=== PATIENT | female | born 1995 | race American Indian/Alaskan Native ===

== ENCOUNTER 2017-02-02 14:52 | Inpatient (IN) | payer OTHER ==
[2017-02-02] MEDS ORDERED: LACTATED RINGERS 1,000 ML IV ONE (16:00)
[2017-02-02] MEDS ORDERED: ZOFRAN IV ONE (16:00)
[2017-02-02 16:43] LABS: Bilirubin,Urine NEG (Negative)
[2017-02-02 16:44] LABS: Blood,Urine NEG (Negative); Ketones,Urine 80 mg/dL (Negative); Leukocyte Esterase,Urine LG (Negative); Mucus,Urine 3+ /HPF; Nitrite,Urine NEG (Negative); Urobilinogen,Urine < 2.0 mg/dL (<2.0)
[2017-02-02] MEDS ORDERED: KEPPRA 1,000 MG in D5W 100 ML IV ONE (17:53)
--- NOTE | 2017-02-02 18:08 | History and Physical Report ---
History of Present Illness Date of examination: 02/02/17 Date of admission: 02/02/17 14:53 Chief complaint: Patient presents to [facility] with c/o or recent seizure activity. Pt had multiple seizures back to back. Pt states she has had seizures since childhood but recently wasn't taking meds because of how she felt. Recently seen at [facility] for this . Will Attempt to get records. Past History Past Medical History: seizure Past Surgical History: no surgical history Family/Genetic History: none Social history: other - Obstetrical History Expected Date of Delivery: 05/15/17 Actual Gestation: 25 Week(s) 3 Day(s) : 4 Number of Living Children: 3 Medications and Allergies Allergies Allergy/AdvReac Type Severity Reaction Status Date / Time [place] And Derivatives Allergy Unknown Verified 02/02/17 15:28 Home Medications Medication Instructions Recorded Confirmed Last Taken Type levETIRAcetam [Keppra TAB] 750 mg PO BID #60 tablet 06/06/16 02/02/17 Unknown Rx Pnv with Ca,No.72/Iron/FA [Pnv 1 each PO DAILY 02/02/17 02/02/17 Unknown History Plus Multivit Tab] Active Meds: Active Medications Levetiracetam 1,000 mg/ (Dextrose) 110 mls @ 400 mls/hr IV ONCE.ED ONE Stop: 02/02/17 18:09 Levetiracetam (Keppra 1,000 Mg/Ns 0.75% 100ml) 1,000 mg in 100 mls @ 363.636 mls/hr IV ONCE.ED ONE Stop: 02/02/17 19:01 Levetiracetam (Keppra) 500 mg PO BID NAKUR Review of Systems All systems: negative Gastrointestinal: nausea, vomiting - Vital Signs Vital signs: Vital Signs Pulse Pulse Ox 110 H 88 02/02/17 15:07 02/02/17 15:07 Temp Pulse Resp BP Pulse Ox 98.6 F 100 H 18 124/77 99 02/02/17 15:34 02/02/17 17:58 02/02/17 15:34 02/02/17 17:39 02/02/17 17:58 - Physical Exam Breasts: Positive: deferred Cardiovascular: Regular rate, Normal S1, Normal S2 Abdomen: Positive: normal appearance, soft, normal bowel sounds. Negative: distention, tenderness Vulva: both: normal Vagina: Positive: normal moisture. Negative: discharge Cervix: Negative: lesion, discharge Uterus: Positive: normal size, normal contour Adnexa: both: normal Anus/Rectum: Positive: normal perianal skin, heme negative. Negative: rectal mass, hemorrhoids Extremities: Deep Tendon Reflex Grade: Normal +2 - Obstetrical FHR: category 1 Uterine Contraction Monitor Mode: External Uterine Contraction Pattern: Absent Uterine Tone Measurement Phase: Resting Results Abnormal lab results 02/02/17 Range/Units 16:00 Urine WBC (Auto) 43.0 H (0.0-6.0) /HPF U Epithel Cells (Auto) 40.0 H (0-13.0) /HPF All other labs normal. Assessment and Plan iup at 21 weeks, recent seizure activity- multiple episodes. Plan- admit start seizure meds. obtain records from [facility]. Perinatology consult
--- NOTE | 2017-02-02 18:11 | Consultation ---
History of Present Illness - Reason for Consult Consult date: 02/02/17 [facility] Requesting physician: TEVIN POSADA - History of Present Illness Patient 21-year-old female new to staff originally presented to [facility] because she felt like she was going to have a seizure. Upon presentation to &D area patient had a witnessed seizure and then had an additional seizure after being admitted to the hospital. Patient is a very poor historian secondary to confusion after having a seizure. Patient had a postictal state of confusion during history and physical however improved as the interview went on. Patient and partner both gave history together and they stated that patient may have had a seizure one month prior. Patient states she' s been under a lot of stress from home environment and being and significant other which may have led her to have a seizure. Patient also states she is not taken her Keppra seizure medication for quite some time. She stated that when she was on 500 mg she felt okay but was increased to 750 mg and began to feel weak. She stated that the reason why she stopped the medications. Patient did not falls denied hitting her head. Patient maintain oxygenation throughout seizure. Patient denies any triggers for seizure besides possible stress. We attempted to obtain whether seizure came with each and it did not. We attempted to obtain whether or not she became nauseated by taking Keppra or and she did not. At present patient has improved postictal state states she's only has a headache. Denies nausea at this time. Patient has never been hospitalized for seizure however she did have sepsis when she was in [place] etiology unknown. Past History Past Medical History: seizures. denies: acute VT, atrial fib, arrhythmia, anemia, arthritis, CAD, cancer, COPD, diabetes, dialysis, DVT, ESRD, GERD, heart failure, hepatitis, HIV/AIDS, hyperthyroidism, hypertension, hyperlipidemia, hypothyroidism, liver disease, migraines, PVD, pulmonary embolism, renal failure, stroke, sarcoidosis Past Surgical History: No surgical history Social history: no significant social history, Lives alone, full code, other ( lives with partner). denies: smoking, alcohol abuse, prescription drug abuse, IV drug use Family history: no significant family history Medications and Allergies Allergies Allergy/AdvReac Type Severity Reaction Status Date / Time [place] And Derivatives Allergy Unknown Verified 02/02/17 15:28 Home Medications Medication Instructions Recorded Confirmed Last Taken Type levETIRAcetam [Keppra TAB] 750 mg PO BID #60 tablet 06/06/16 02/02/17 Unknown Rx Pnv with Ca,No.72/Iron/FA [Pnv 1 each PO DAILY 02/02/17 02/02/17 Unknown History Plus Multivit Tab] Active Meds: Active Medications Levetiracetam (Keppra 1,000 Mg/Ns 0.75% 100ml) 1,000 mg in 100 mls @ 363.636 mls/hr IV ONCE.ED ONE Stop: 02/02/17 19:01 Levetiracetam (Keppra) 500 mg PO BID ANKUR Review of Systems Constitutional: anorexia, fatigue, weakness, malaise, lethargy, poor appetite, no weight loss, no weight gain, no fever, no chills, no sweats, no night sweats , no chronic headaches, no daytime sleepiness, no chronic pain Ears, nose, mouth and throat: no ear pain, no ear discharge, no decreased hearing, no nose pain, no nasal discharge, no bleeding gums, no mouth pain, no hoarseness, no sore throat, no swelling in mouth, no swelling in throat, no headache, no pain front of neck, no neck fullness/pressure, no neck lump Cardiovascular: no chest pain, no orthopnea, no palpitations, no edema, no syncope, no lightheadedness, no shortness of breath, no dyspnea on exertion, no claudication, no high blood pressure Respiratory: no cough, no cough with sputum, no hemoptysis, no shortness of breath, no dyspnea on exertion, no congestion, no wheezing, no pain on inspiration, no sleep apnea, no respiratory infections, no home oxygen Gastrointestinal: nausea, no abdominal pain, no vomiting, no diarrhea, no constipation, no change in bowel habits, no hematemesis, no coffee ground emesis , no melena, no early satiety, no heartburn, no indigestion, no jaundice, no early satiety Genitourinary Female: , other, no menorrhagia, no dysuria, no urinary frequency, no urgency, no stress incontinence, no post void dribbling, no incomplete emptying Musculoskeletal: muscle weakness, no neck stiffness, no neck pain, no shooting arm pain, no arm numbness/tingling, no low back pain, no shooting leg pain, no leg numbness/tingling, no redness of joints, no hot joints, no morning stiffness , no muscle cramps, no myalgias, no limitation of motion, no gait dysfunction, no fractures Neurological: headaches, convulsions, memory loss, no head injury, no transient paralysis, no weakness, no numbness, no seizures, no ataxia, no migraines, no tic, no aphasia, no change in speech, no confusion, no changes in smell/taste, no balance difficulties, no double vision, no loss of vision, no burning pain, no paralysis Psychiatric: anxiety, change in appetite, no memory loss, no change in sleep habits, no sleep disturbances, no insomnia, no hypersomnia, no change in libido , no suicidal ideation, no disorientation, no hallucinations, no paranoia, no depression, no hopelessness, no anhedonia, no anxiety attacks, no difficulties concentrating, no confusion, no irritability, no sadness/tearfullness, no mood swings, no other Endocrine: no heat intolerance, no polydipsia, no nocturia, no increase in ring/ shoe/hat size, no proptosis, no deepening of the voice, no thyroid mass, no low blood sugars Hematologic/Lymphatic: no easy bruising Allergic/Immunologic: no allergic rhinitis, no wheezing, no persistent infections, no anaphylaxis, no angioedema Exam - Physical Exam Narrative exam: Exam limited secondary to postictal state. - Constitutional Vitals: Temp Pulse Resp BP Pulse Ox 98.6 F 100 H 18 124/77 99 02/02/17 15:34 02/02/17 17:58 02/02/17 15:34 02/02/17 17:39 02/02/17 17:58 General appearance: Present: no acute distress, well-nourished - EENT Eyes: Present: PERRL ENT: hearing intact, clear oral mucosa - Neck Neck: Present: supple, normal ROM - Respiratory Respiratory effort: normal Respiratory: bilateral: CTA - Cardiovascular Heart Sounds: Present: S1 & S2. Absent: rub, click - Extremities Extremities: pulses symmetrical, No edema Peripheral Pulses: within normal limits - Abdominal General gastrointestinal: Present: soft, non-tender, non-distended, normal bowel sounds Female genitourinary: Present: deferred - Musculoskeletal Musculoskeletal: gait normal, strength equal bilaterally - Psychiatric Psychiatric: appropriate mood/affect, intact judgment & insight, cooperative, other (post ictal) - Neurologic Neurologic: CNII-XII intact, moves all extremities Results - Labs Labs: Abnormal lab results 02/02/17 Range/Units 16:00 Urine WBC (Auto) 43.0 H (0.0-6.0) /HPF U Epithel Cells (Auto) 40.0 H (0-13.0) /HPF Assessment and Plan 21-year-old female presents with uncontrolled seizures and medicinal noncompliance Seizure disorder-patient has had approximately 2 seizures in the past month. Prior to this has not had seizures in a long time according to patient and partner. Etiology most likely stress psychosocial structures. At present hemodynamically stable. Improving postictal status. Preeclampsia eclampsia has been ruled out. At present plan will be #1 we'll load with Keppra IV 1000 mg and start Keppra 500 twice a day in the a.m. Patient gives history of feeling bad with 750 mg. Will attempt to treat with the lowest effective dose of Keppra therefore starting at 500 mg 1 tab by mouth twice a day after loading patient today. If patient does have a seizure or status epilepticus we'll treat with lorazepam and may also use Dilantin as well. Lorazepam dose for status epilepticus is 0.1 mg/kg. And could also use Dilantin as well. Should attempt to use only one seizure medications definitely decreases abnormalities. If patient is not is status and seizures uncontrolled can use diazepam 1-2 mg every 4-6 hours when necessary seizure. #2 we'll supplement diet with folic acid #3 consider obtaining MSAFP and survey ultrasound. #4 treat any underlying conditions of possible etiologies such as infections and electrolyte abnormalities. Labs at this point has not been obtained and will await presentation of labs and rule out infection. Thank you for consult.
[2017-02-02] MEDS ORDERED: COLACE PO PRN (18:21)
[2017-02-02] MEDS ORDERED: MILK OF MAGNESIA PO PRN (18:21)
[2017-02-02] MEDS ORDERED: MYLICON PO PRN (18:21)
[2017-02-02] MEDS ORDERED: KEPPRA 1,000 MG/NS 0.75% 100ML 1,000 MG/100 ML BAG IV ONE (18:45)
[2017-02-02 18:49] LABS: Urine Drugs of Abuse Note Disclamer
[2017-02-02] MEDS ORDERED: D5LR 1,000 ML IV SCH (19:00)
[2017-02-02 19:16] LABS: Basophils % (Auto) 0.2 % (0.0-1.8); Eosinophils % (Auto) 0.2 % (0.0-4.3); Hematocrit 33.4 % (30.3-42.9); Hemoglobin 10.8 gm/dl (10.1-14.3); Mean Corpuscular HGB Conc 32 % (30-34); Mean Corpuscular Volume 77 fl (79-97); Platelet Count 293 K/mm3 (140-440); Red Blood Count 4.35 M/mm3 (3.65-5.03); Red Cell Distribution Width 16.5 % (13.2-15.2); White Blood Count 12.6 K/mm3 (4.5-11.0)
[2017-02-02 19:18] LABS: Mean Corpuscular Hemoglobin 25 pg (28-32)
[2017-02-02 19:19] LABS: Bilirubin,Urine NEG (Negative); Blood,Urine NEG (Negative); Ketones,Urine 80 mg/dL (Negative); Leukocyte Esterase,Urine TR (Negative); Mucus,Urine 2+ /HPF; Nitrite,Urine NEG (Negative); Urobilinogen,Urine < 2.0 mg/dL (<2.0)
[2017-02-02] MEDS ORDERED: LACTATED RINGERS 1,000 ML IV SCH (19:30)
[2017-02-02] MEDS: TYLENOL PO PRN (19:42)
[2017-02-02 20:45] LABS: HIV-1 Antigen p24 Non React (Non React); HIVR-1/2 Ab Non React (Non React)
[2017-02-02] MEDS: KEPPRA PO SCH (22:38)
--- NOTE | 2017-02-03 08:36 | Ultrasound Report ---
OB ULTRASOUND History: well-being, recent seizure activity. Technique: Transabdominal ultrasound with Doppler interrogation. Gestation: Single Position: Breech Amniotic Fluid: Within normal limits NIKKI = not measured cm Placenta: Posterior, right lateral Placental Grade: 0 Heart Rate: 152 BPM Cervical length: 4.2 cm (Normal > 3 cm) NEUROANATOMY VISUALIZED: Choroid Plexus Cisterna Magnum Cerebellum Lateral Ventricle ANATOMY VISUALIZED: Stomach Kidneys Bladder Diaphragm 4 Chamber Heart Heart 3 Vessel Cord Abd. Cord Insert SPINE VISUALIZED: Limited spine due to position The following are not demonstrated due to maternal body habitus or lie: spine BPD: 4.9 cm = 20 w 5 d HC: 18.8 cm = 21 w 1 d AC: 17.3 cm = 22 w 2 d FL: 3.4 cm = 20 w 3 d HC/AC Ratio: 1.09 Cephalic Index: 74.8 Estimated Weight: 420 grams LMP: 09/07/16 Clinical age = 21 w 1 d EDC: 06/14/17 US Gest. Age = 21 w 1 d EDC: 06/14/17
--- NOTE | 2017-02-03 09:16 | Progress Note ---
Assessment and Plan HD 2- iup at 21 3/7 weeks. start PO Keppra. consider d/c when stable. Subjective - Subjective Date of service: 02/03/17 Principal diagnosis: iup at 21 3/7 days by kendall hankins of epilepsy, recent seizure activity Interval history: Patient denies seizure activity overnight. Admits to nausea, no vomiting. will start PO keppra this am. consult pending. social media coordinator consult pending. Patient reports: other (nausea) Objective - Vital Signs Vital Signs: Vital Signs - 12hr 02/02/17 02/02/17 02/02/17 21:13 21:18 21:23 Temperature Pulse Rate 94 H 95 H 108 H Blood Pressure 116/65 O2 Sat by Pulse 97 96 96 Oximetry 02/02/17 02/02/17 02/02/17 21:28 21:33 21:38 Temperature Pulse Rate 99 H 96 H 86 Blood Pressure 116/61 O2 Sat by Pulse 97 99 96 Oximetry 02/02/17 02/02/17 02/02/17 21:43 21:48 21:53 Temperature Pulse Rate 91 H 89 89 Blood Pressure 115/66 O2 Sat by Pulse 99 99 99 Oximetry 02/02/17 02/02/17 02/02/17 21:58 22:03 22:08 Temperature Pulse Rate 88 97 H 89 Blood Pressure O2 Sat by Pulse 100 99 98 Oximetry 02/02/17 02/02/17 02/02/17 22:09 22:13 22:19 Temperature Pulse Rate 88 84 92 H Blood Pressure 126/69 O2 Sat by Pulse 86 98 Oximetry 02/02/17 02/02/17 02/02/17 22:20 22:23 22:24 Temperature Pulse Rate 102 H 83 90 Blood Pressure 120/75 O2 Sat by Pulse 93 98 Oximetry 02/02/17 02/02/17 02/02/17 22:29 22:34 22:38 Temperature Pulse Rate 95 H 83 101 H Blood Pressure O2 Sat by Pulse 98 98 0 L Oximetry 02/02/17 02/02/17 02/02/17 22:39 22:44 22:53 Temperature Pulse Rate 94 H 104 H 100 H Blood Pressure 114/72 117/68 O2 Sat by Pulse 100 86 Oximetry 02/02/17 02/02/17 02/02/17 22:55 23:00 23:05 Temperature Pulse Rate 90 89 90 Blood Pressure O2 Sat by Pulse 98 98 100 Oximetry 02/02/17 02/03/17 02/03/17 23:08 02:52 02:57 Temperature Pulse Rate 83 Blood Pressure 119/73 O2 Sat by Pulse 79 L 63 L Oximetry 02/03/17 02/03/17 02/03/17 03:02 03:08 03:13 Temperature Pulse Rate 76 Blood Pressure O2 Sat by Pulse 46 L 74 L 75 L Oximetry 02/03/17 02/03/17 02/03/17 03:17 03:19 03:22 Temperature Pulse Rate 55 L 67 99 H Blood Pressure O2 Sat by Pulse 36 L 81 L 97 Oximetry 02/03/17 02/03/17 02/03/17 03:27 03:32 03:37 Temperature Pulse Rate 71 75 89 Blood Pressure O2 Sat by Pulse 96 96 96 Oximetry 02/03/17 02/03/17 02/03/17 03:42 03:47 03:52 Temperature Pulse Rate 91 H 92 H 75 Blood Pressure O2 Sat by Pulse 96 97 97 Oximetry 02/03/17 02/03/17 02/03/17 03:57 04:02 04:07 Temperature Pulse Rate 76 78 81 Blood Pressure O2 Sat by Pulse 97 96 97 Oximetry 02/03/17 02/03/17 02/03/17 04:12 04:17 04:22 Temperature Pulse Rate 81 84 83 Blood Pressure O2 Sat by Pulse 96 96 96 Oximetry 02/03/17 02/03/17 02/03/17 04:27 04:31 04:32 Temperature Pulse Rate 83 114 H 77 Blood Pressure O2 Sat by Pulse 97 94 95 Oximetry 02/03/17 02/03/17 02/03/17 04:37 04:42 04:47 Temperature Pulse Rate 82 83 85 Blood Pressure O2 Sat by Pulse 94 93 97 Oximetry 02/03/17 02/03/17 02/03/17 04:52 04:57 05:02 Temperature Pulse Rate 101 H 76 80 Blood Pressure O2 Sat by Pulse 98 97 96 Oximetry 02/03/17 02/03/17 02/03/17 05:07 05:12 05:17 Temperature Pulse Rate 83 99 H 86 Blood Pressure O2 Sat by Pulse 97 98 97 Oximetry 02/03/17 02/03/17 02/03/17 05:22 05:27 05:32 Temperature Pulse Rate 91 H 85 100 H Blood Pressure O2 Sat by Pulse 97 98 97 Oximetry 02/03/17 02/03/17 02/03/17 05:37 05:42 05:47 Temperature Pulse Rate 83 92 H 87 Blood Pressure O2 Sat by Pulse 98 98 99 Oximetry 02/03/17 02/03/17 02/03/17 05:51 05:52 05:57 Temperature 97.2 F L Pulse Rate 92 H 83 Blood Pressure O2 Sat by Pulse 99 99 Oximetry 02/03/17 02/03/17 02/03/17 06:02 06:05 06:07 Temperature Pulse Rate 91 H 84 92 H Blood Pressure 103/53 O2 Sat by Pulse 99 100 Oximetry 02/03/17 02/03/17 02/03/17 06:12 06:17 06:22 Temperature Pulse Rate 87 81 86 Blood Pressure O2 Sat by Pulse 99 98 100 Oximetry 02/03/17 02/03/17 02/03/17 06:27 06:32 06:37 Temperature Pulse Rate 88 101 H 82 Blood Pressure O2 Sat by Pulse 99 99 100 Oximetry 02/03/17 02/03/17 02/03/17 06:42 06:47 06:52 Temperature Pulse Rate 95 H 79 79 Blood Pressure O2 Sat by Pulse 99 100 100 Oximetry 02/03/17 02/03/17 02/03/17 06:57 07:02 07:07 Temperature Pulse Rate 83 83 85 Blood Pressure O2 Sat by Pulse 99 100 100 Oximetry 02/03/17 02/03/17 02/03/17 07:12 07:17 07:22 Temperature Pulse Rate 83 87 80 Blood Pressure O2 Sat by Pulse 100 99 98 Oximetry 02/03/17 02/03/17 02/03/17 07:27 07:32 07:36 Temperature Pulse Rate 72 77 98 H Blood Pressure 97/46 O2 Sat by Pulse 97 97 Oximetry 02/03/17 02/03/17 02/03/17 07:37 07:42 07:47 Temperature Pulse Rate 101 H 106 H 99 H Blood Pressure O2 Sat by Pulse 98 98 98 Oximetry 02/03/17 02/03/17 02/03/17 07:52 07:57 08:02 Temperature Pulse Rate 94 H 88 95 H Blood Pressure O2 Sat by Pulse 97 97 98 Oximetry 02/03/17 02/03/1717 08:07 08:12 08:17 Temperature Pulse Rate 84 78 79 Blood Pressure O2 Sat by Pulse 97 97 97 Oximetry 02/03/17 02/03/17 02/03/17 08:22 08:27 08:32 Temperature Pulse Rate 77 82 80 Blood Pressure O2 Sat by Pulse 97 96 96 Oximetry 02/03/17 02/03/17 02/03/17 08:37 08:42 08:47 Temperature Pulse Rate 76 74 75 Blood Pressure O2 Sat by Pulse 97 98 97 Oximetry 02/03/17 02/03/17 02/03/17 08:52 08:57 09:02 Temperature Pulse Rate 87 84 75 Blood Pressure O2 Sat by Pulse 97 98 97 Oximetry 02/03/17 09:07 Temperature Pulse Rate 73 Blood Pressure O2 Sat by Pulse 97 Oximetry - Exam Breasts: deferred Cardiovascular: Regular rate, Normal S1, Normal S2 Lungs: Clear to auscultation Abdomen: Present: normal appearance, soft. Absent: distention, tenderness Vulva: both: normal Uterus: Present: normal FHR: auscultation normal Uterine Contraction Monitor Mode: External Uterine Contraction Pattern: Absent Uterine Tone Measurement Phase: Resting - Labs Labs: Abnormal Labs 02/02/17 02/02/17 02/02/17 16:00 18:08 Unknown WBC 12.6 H MCV 77 L MCH 25 L RDW 16.5 H Seg Neutrophils % 76.4 H Seg Neutrophils # 9.6 H Urine WBC (Auto) 43.0 H 7.0 H U Epithel Cells (Auto) 40.0 H Laboratory Results - last 24 hr 02/02/17 02/02/17 02/02/17 16:00 18:08 18:08 WBC 12.6 H RBC 4.35 Hgb 10.8 Hct 33.4 MCV 77 L MCH 25 L MCHC 32 RDW 16.5 H Plt Count 293 Lymph % (Auto) 16.6 [place] % (Auto) 6.6 Eos % (Auto) 0.2 Baso % (Auto) 0.2 Lymph # 2.1 [place] # 0.8 Eos # 0.0 Baso # 0.0 Seg Neutrophils % 76.4 H Seg Neutrophils # 9.6 H Sickle Cell Screen Urine Color Yellow Urine Turbidity Cloudy Urine pH 6.0 Ur Specific [place] 1.023 Urine Protein 30 mg/dl Urine Glucose (UA) Neg Urine Ketones 80 Urine Blood Neg Urine Nitrite Neg Urine Bilirubin Neg Urine Urobilinogen < 2.0 Ur Leukocyte Esterase Lg Urine WBC (Auto) 43.0 H Urine RBC (Auto) 4.0 U Epithel Cells (Auto) 40.0 H Urine Mucus 3+ Urine Opiates Screen Urine Methadone Screen Ur Barbiturates Screen Ur Phencyclidine Scrn Ur Amphetamines Screen U Benzodiazepines Scrn Urine Cocaine Screen U Marijuana (THC) Screen Drugs of Abuse Note Hep Bs Antigen HIV 1&2 Antibody Rapid HIV P24 Antigen Rubella IgG Antibody Blood Type A POSITIVE Antibody Screen Positive Antibody Identification Non-specific Antibody 02/02/17 02/02/17 02/02/17 18:08 18:08 18:08 WBC RBC Hgb Hct MCV MCH MCHC RDW Plt Count Lymph % (Auto) [place] % (Auto) Eos % (Auto) Baso % (Auto) Lymph # [place] # Eos # Baso # Seg Neutrophils % Seg Neutrophils # Sickle Cell Screen Negative Urine Color Urine Turbidity Urine pH Ur Specific [place] Urine Protein Urine Glucose (UA) Urine Ketones Urine Blood Urine Nitrite Urine Bilirubin Urine Urobilinogen Ur Leukocyte Esterase Urine WBC (Auto) Urine RBC (Auto) U Epithel Cells (Auto) Urine Mucus Urine Opiates Screen Urine Methadone Screen Ur Barbiturates Screen Ur Phencyclidine Scrn Ur Amphetamines Screen U Benzodiazepines Scrn Urine Cocaine Screen U Marijuana (THC) Screen Drugs of Abuse Note Hep Bs Antigen Non-reactive HIV 1&2 Antibody Rapid Non react HIV P24 Antigen Non react Rubella IgG Antibody Immune Blood Type Antibody Screen Antibody Identification 02/02/17 02/02/17 Unknown Unknown WBC RBC Hgb Hct MCV MCH MCHC RDW Plt Count Lymph % (Auto) [place] % (Auto) Eos % (Auto) Baso % (Auto) Lymph # [place] # Eos # Baso # Seg Neutrophils % Seg Neutrophils # Sickle Cell Screen Urine Color Yellow Urine Turbidity Clear Urine pH 6.0 Ur Specific [place] 1.018 Urine Protein 30 mg/dl Urine Glucose (UA) Neg Urine Ketones 80 Urine Blood Neg Urine Nitrite Neg Urine Bilirubin Neg Urine Urobilinogen < 2.0 Ur Leukocyte Esterase Tr Urine WBC (Auto) 7.0 H Urine RBC (Auto) 1.0 U Epithel Cells (Auto) 1.0 Urine Mucus 2+ Urine Opiates Screen Presumptive negative Urine Methadone Screen Presumptive negative Ur Barbiturates Screen Presumptive negative Ur Phencyclidine Scrn Presumptive negative Ur Amphetamines Screen Presumptive negative U Benzodiazepines Scrn Presumptive negative Urine Cocaine Screen Presumptive negative U Marijuana (THC) Screen Presumptive positive Drugs of Abuse Note Disclamer Hep Bs Antigen HIV 1&2 Antibody Rapid HIV P24 Antigen Rubella IgG Antibody Blood Type Antibody Screen Antibody Identification
[2017-02-03] MEDS: ZOFRAN IV PRN ×3 (09:43→19:51)
[2017-02-03] MEDS ORDERED: KEPPRA 500 MG in D5W 100 ML IV SCH (11:00)
[2017-02-03] MEDS ORDERED: ATIVAN IV NR (11:03)
[2017-02-03] MEDS ORDERED: KEPPRA IV ONE (11:23)
[2017-02-03] MEDS ORDERED: D5W IV ONE (11:23)
[2017-02-03] MEDS ORDERED: VALIUM IV ONE (11:30)
--- NOTE | 2017-02-03 12:09 | Event Note ---
Date: 02/03/17 Notified by nurse that patient had several seizures this am despite 1000mg keppra load and 500mg pm dose. pt currently not responsive- postichtal. Will increase daily keppra dose to 750mg bid. Valium 2 mg given now per hospitalist recommendation if seizures recur. DR Yeager - neurologist has been consulted- [phone].
[2017-02-03] MEDS: TYLENOL PO PRN (12:25)
--- NOTE | 2017-02-03 12:43 | Admit Criteria Form ---
Admission Criteria Documentation: SEIZURE Clinical Indications for Admission to Inpatient Care (Place 'X' for any and all applicable criteria): Admission is indicated for seizure and ANY ONE of the following(1)(2)(3)(4)(5): [X ]I. Inpatient admission required rather than observation care (Also use Seizure: Observation Care Criteria as appropriate) because of ANY ONE of the following: [ ]a) Altered mental status that is severe or persistent [ ]b) New focal neurologic deficit that is severe or persistent [ ]c) Metabolic disorder (eg, hypoglycemia, hyponatremia) that is severe or persistent [ X]d) Recurrent seizure [ ]e) Outpatient antiseizure regimen cannot be established (eg , patient cannot tolerate medication, initiation requires inpatient care) [ ]f) Need for ongoing intravenous infusion of antiseizure medication [ ]g) Cardiac arrhythmias of immediate concern [ ]h) Cerebral bleeding, hydrocephalus, or vasospasm monitoring (14) [ ]i) Increased intracranial pressure or cerebral edema monitoring (15) [ ]j) Other treatment or monitoring requiring inpatient admission [ ]II. Status epilepticus [A] or repetitive seizures not controlled with emergent treatment (6)(8) [ ]III. Brain disorder (eg, tumor, edema, and hydrocephalus) that requiring monitoring or intervention available only at inpatient level of care. [ ]IV. Brain insult (eg, severe trauma, stroke, drug toxicity, or withdrawal) that requires monitoring or intervention available only at inpatient level of care (10)(11) Extended stay beyond goal length of stay may be needed for (22) [ ]a) Complications of status epilepticus [ ]b) Refractory status epilepticus [ ]c) Etiology-specific therapy for conditions such as CLINICAL PSYCHOLOGY TEACHER infection, head injury,eclampsia, severe metabolic abnormalities, and brain tumor [ ]d) Residual neurologic damage, [ ]e) Initiation of significant change to anticonvulsant treatment [ ]f) Older patients (65 years or older) [ ]g) Patient requiring intubation (eg, to protect airway) The original [facility] content created by [employer] has been revised. The portions of the content which have been revised are identified through the use of italic text or in bold, and [facility] [employer] has neither reviewed nor approved the modified material. All other unmodified content is copyright [facility] [employer]. Please see references footnoted in the original [facility] edition 2016 Admission Criteria Met: Yes
--- NOTE | 2017-02-03 13:20 | Progress Note ---
Assessment and Plan Assessment and plan: 21-year-old woman who presented with seizure, medicine was consulted for potential seizure. She self stopped her Keppra because it was making her nauseous. 1. Uncontrolled seizures Heparin is increased, continue Valium as needed, obtain neurology consultation Will obtain stat electrolytes and magnesium level, replete as needed 2. Pyuria He has mild pyuria, we'll obtain urine cultures to rule out UTI 3. Hypernatremia hematemesis gravidarum Continue IV fluids, continue antiemetics care per obstetrics. History Interval history: She had a seizure early this morning after which she was supposed a fall while, mental status is now back to baseline Hospitalist Physical - Physical exam Narrative exam: General: Patient appears well in no distress HEENT: MMM, EOMI cardiac: S1-S2 heard lungs: clear to auscultation, abdomen: Gravid uterus extremities: no edema clubbing or cyanosis Skin: no rash or lesion Neuro: no focal deficit Psych: appropriate behavior and mood, cognition intact - Constitutional Vitals: Temp Pulse Resp BP Pulse Ox 98.1 F 89 12 111/58 99 02/03/17 11:08 02/03/17 13:12 02/03/17 11:08 02/03/17 12:27 02/03/17 13:12 General appearance: Present: no acute distress, well-nourished Results - Labs CBC & Chem 7: 02/02/17 18:08 02/04/17 11:38 Labs: Laboratory Last Values WBC 12.6 K/mm3 (4.5-11.0) H 02/02/17 18:08 RBC 4.35 M/mm3 (3.65-5.03) 02/02/17 18:08 Hgb 10.8 gm/dl (10.1-14.3) 02/02/17 18:08 Hct 33.4 % (30.3-42.9) 02/02/17 18:08 MCV 77 fl (79-97) L 02/02/17 18:08 MCH 25 pg (28-32) L 02/02/17 18:08 MCHC 32 % (30-34) 02/02/17 18:08 RDW 16.5 % (13.2-15.2) H 02/02/17 18:08 Plt Count 293 K/mm3 (140-440) 02/02/17 18:08 Lymph % (Auto) 16.6 % (13.4-35.0) 02/02/17 18:08 [place] % (Auto) 6.6 % (0.0-7.3) 02/02/17 18:08 Eos % (Auto) 0.2 % (0.0-4.3) 02/02/17 18:08 Baso % (Auto) 0.2 % (0.0-1.8) 02/02/17 18:08 Lymph # 2.1 K/mm3 (1.2-5.4) 02/02/17 18:08 [place] # 0.8 K/mm3 (0.0-0.8) 02/02/17 18:08 Eos # 0.0 K/mm3 (0.0-0.4) 02/02/17 18:08 Baso # 0.0 K/mm3 (0.0-0.1) 02/02/17 18:08 Seg Neutrophils % 76.4 % (40.0-70.0) H 02/02/17 18:08 Seg Neutrophils # 9.6 K/mm3 (1.8-7.7) H 02/02/17 18:08 Sickle Cell Screen Negative (Negative) 02/02/17 18:08 Urine Color Yellow (Yellow) 02/02/17 Unknown Urine Turbidity Clear (Clear) 02/02/17 Unknown Urine pH 6.0 (5.0-7.0) 02/02/17 Unknown Ur Specific [place] 1.018 (1.003-1.030) 02/02/17 Unknown Urine Protein 30 mg/dl mg/dL (Negative) 02/02/17 Unknown Urine Glucose (UA) Neg mg/dL (Negative) 02/02/17 Unknown Urine Ketones 80 mg/dL (Negative) 02/02/17 Unknown Urine Blood Neg (Negative) 02/02/17 Unknown Urine Nitrite Neg (Negative) 02/02/17 Unknown Urine Bilirubin Neg (Negative) 02/02/17 Unknown Urine Urobilinogen < 2.0 mg/dL (<2.0) 02/02/17 Unknown Ur Leukocyte Esterase Tr (Negative) 02/02/17 Unknown Urine WBC (Auto) 7.0 /HPF (0.0-6.0) H 02/02/17 Unknown Urine RBC (Auto) 1.0 /HPF (0.0-6.0) 02/02/17 Unknown U Epithel Cells (Auto) 1.0 /HPF (0-13.0) 02/02/17 Unknown Urine Mucus 2+ /HPF 02/02/17 Unknown Urine Opiates Screen Presumptive negative 02/02/17 Unknown Urine Methadone Screen Presumptive negative 02/02/17 Unknown Ur Barbiturates Screen Presumptive negative 02/02/17 Unknown Ur Phencyclidine Scrn Presumptive negative 02/02/17 Unknown Ur Amphetamines Screen Presumptive negative 02/02/17 Unknown U Benzodiazepines Scrn Presumptive negative 02/02/17 Unknown Urine Cocaine Screen Presumptive negative 02/02/17 Unknown U Marijuana (THC) Screen Presumptive positive 02/02/17 Unknown Drugs of Abuse Note Disclamer 02/02/17 Unknown RPR Nonreactive (Nonreactive) 02/02/17 18:08 Hep Bs Antigen Non-reactive (Negative) 02/02/17 18:08 HIV 1&2 Antibody Rapid Non react (Non React) 02/02/17 18:08 HIV P24 Antigen Non react (Non React) 02/02/17 18:08 Rubella IgG Antibody Immune (Immune) 02/02/17 18:08 Blood Type A POSITIVE 02/02/17 18:08 Antibody Screen Positive 02/02/17 18:08 Antibody Identification Non-specific Antibody 02/02/17 18:08
--- NOTE | 2017-02-03 14:55 | Consultation ---
History of Present Illness - Reason for Consult Consult date: 02/03/17 seizure - History of Present Illness recommend IV form of the keppra she has hx of temporal lobe epilepsy Thanks for consult Past History Past Medical History: seizures. denies: acute AR, atrial fib, arrhythmia, anemia, arthritis, CAD, cancer, COPD, diabetes, dialysis, DVT, ESRD, GERD, heart failure, hepatitis, HIV/AIDS, hyperthyroidism, hypertension, hyperlipidemia, hypothyroidism, liver disease, migraines, PVD, pulmonary embolism, renal failure, stroke, sarcoidosis Past Surgical History: No surgical history Social history: no significant social history, Lives alone, full code, other ( lives with partner). denies: smoking, alcohol abuse, prescription drug abuse, IV drug use Family history: no significant family history Medications and Allergies Allergies Allergy/AdvReac Type Severity Reaction Status Date / Time [place] And Derivatives Allergy Unknown Verified 02/02/17 15:28 Home Medications Medication Instructions Recorded Confirmed Last Taken Type levETIRAcetam [Keppra TAB] 750 mg PO BID #60 tablet 06/06/16 02/02/17 Unknown Rx Pnv with Ca,No.72/Iron/FA [Pnv 1 each PO DAILY 02/02/17 02/02/17 Unknown History Plus Multivit Tab] Active Meds: Active Medications Acetaminophen (Tylenol) 650 mg PO Q4H PRN PRN Reason: Pain MILD(1-3)/Fever >100.5/TORRES Last Admin: 02/03/17 12:25 Dose: 650 mg Docusate Sodium (Colace) 100 mg PO Q12H PRN PRN Reason: Constipation Dextrose/Lactated Ringer's (D5lr) 1,000 mls @ 125 mls/hr IV DIRECT ANKUR Lactated Ringer's (Lactated Ringers) 1,000 mls @ 125 mls/hr IV DIRECT ANKUR Last Admin: 02/03/17 09:57 Dose: 125 mls/hr Levetiracetam 500 mg/ Dextrose 105 mls @ 400 mls/hr IV Q12HR ANKUR Last Admin: 02/03/17 10:30 Dose: 400 mls/hr Levetiracetam 750 mg/ Dextrose 107.5 mls @ 400 mls/hr IV Q12HR ANKUR Levetiracetam (Keppra) 500 mg PO BID [facility] Last Admin: 02/02/17 22:38 Dose: 500 mg Magnesium Hydroxide (Milk Of Magnesia) 30 ml PO QHS PRN PRN Reason: Laxative Effect Multivitamins/Iron/Calcium ( Vitamin) 1 each PO QDAY ANKUR Ondansetron HCl (Zofran) 4 mg IV Q8H PRN PRN Reason: Nausea And Vomiting Last Admin: 02/03/17 09:43 Dose: 4 mg Simethicone (Mylicon) 80 mg PO Q6H PRN PRN Reason: Gas pain Exam - Constitutional Vitals: Temp Pulse Resp BP Pulse Ox 98.1 F 85 12 111/58 100 02/03/17 11:08 02/03/17 14:47 02/03/17 11:08 02/03/17 12:27 02/03/17 14:47 Results - Labs CBC & Chem 7: 02/02/17 18:08 Labs: Abnormal lab results 02/02/17 02/02/17 02/02/17 Range/Units 16:00 18:08 Unknown WBC 12.6 H (4.5-11.0) K/mm3 MCV 77 L (79-97) fl MCH 25 L (28-32) pg RDW 16.5 H (13.2-15.2) % Seg Neutrophils % 76.4 H (40.0-70.0) % Seg Neutrophils # 9.6 H (1.8-7.7) K/mm3 Urine WBC (Auto) 43.0 H 7.0 H (0.0-6.0) /HPF U Epithel Cells (Auto) 40.0 H (0-13.0) /HPF
[2017-02-03 16:12] LABS: Albumin 2.8 g/dL (3.9-5); Albumin/Globulin Ratio 0.9 %; Alkaline Phosphatase 52 units/L (35-129); Anion Gap 17 mmol/L; Bilirubin,Total 0.3 mg/dL (0.1-1.2); Blood Urea Nitrogen 3 mg/dL (7-17); Calcium 8.1 mg/dL (8.4-10.2); Carbon Dioxide 19 mmol/L (22-30); Chloride 103.1 mmol/L (98-107); Glucose 76 mg/dL (65-100); Magnesium 1.7 mg/dL (1.7-2.3); Potassium 3.1 mmol/L (3.6-5.0); Sodium 136 mmol/L (137-145)
[2017-02-03 16:21] LABS: Alanine Aminotransferase < 5 units/L (7-56)
--- NOTE | 2017-02-03 16:36 | Consultation ---
History of Present Illness Reason for consult: other (PT is 21.2 weeks per [facility] with 06/14/17. . Patient presented with seizure complaints on 02/02/17 . With a history of seizure disorder-she has hx of temporal lobe epilepsy. Patient was under no medical regimen upon admission and No PNC. Patient was evaluated at [place] for seizure activity. Earlier today 02/03/17 Notified by nurse that patient had several seizures this am despite 1000mg keppra load and 500mg pm dose. pt currently responsive and talkative There has been an increased daily keppra dose to 750 mg bid. S/P Hospitalist and Neurology visit ) Past History Past Medical History: seizure Past Surgical History: no surgical history Family/Genetic History: none - Obstetrical History : 4 Medications and Allergies Allergies Allergy/AdvReac Type Severity Reaction Status Date / Time [place] And Derivatives Allergy Unknown Verified 02/02/17 15:28 Home Medications Medication Instructions Recorded Confirmed Last Taken Type levETIRAcetam [Keppra TAB] 750 mg PO BID #60 tablet 06/06/16 02/02/17 Unknown Rx Pnv with Ca,No.72/Iron/FA [Pnv 1 each PO DAILY 02/02/17 02/02/17 Unknown History Plus Multivit Tab] Active Meds: Active Medications Acetaminophen (Tylenol) 650 mg PO Q4H PRN PRN Reason: Pain MILD(1-3)/Fever >100.5/TORRES Last Admin: 02/03/17 12:25 Dose: 650 mg Docusate Sodium (Colace) 100 mg PO Q12H PRN PRN Reason: Constipation Dextrose/Lactated Ringer's (D5lr) 1,000 mls @ 125 mls/hr IV DIRECT ANKUR Lactated Ringer's (Lactated Ringers) 1,000 mls @ 125 mls/hr IV DIRECT ANKUR Last Admin: 02/03/17 09:57 Dose: 125 mls/hr Levetiracetam 500 mg/ Dextrose 105 mls @ 400 mls/hr IV Q12HR ANKUR Last Admin: 02/03/17 10:30 Dose: 400 mls/hr Levetiracetam 750 mg/ Dextrose 107.5 mls @ 400 mls/hr IV Q12HR ANKUR Levetiracetam (Keppra) 500 mg PO BID ANKUR Last Admin: 02/02/17 22:38 Dose: 500 mg Levetiracetam (Keppra) 750 mg PO BID [facility] Magnesium Hydroxide (Milk Of Magnesia) 30 ml PO QHS PRN PRN Reason: Laxative Effect Multivitamins/Iron/Calcium ( Vitamin) 1 each PO QDAY [facility] Ondansetron HCl (Zofran) 4 mg IV Q8H PRN PRN Reason: Nausea And Vomiting Last Admin: 02/03/17 09:43 Dose: 4 mg Simethicone (Mylicon) 80 mg PO Q6H PRN PRN Reason: Gas pain Review of Systems Constitutional: no fever Eyes: no loss of peripheral vision Ears, nose, mouth and throat: no headache Cardiovascular: no palpitations, no rapid/irregular heart beat, no syncope, no shortness of breath Respiratory: no shortness of breath, no dyspnea on exertion Breasts: deferred Gastrointestinal: no abdominal pain, no vomiting (no longer vomitong ) Genitourinary: no vaginal bleeding, no vaginal discharge, no leakage of fluid Rectal Exam: deferred Musculoskeletal: no leg numbness/tingling Integumentary: no rash Neurological: seizures (reported several seizures this afternoon. During consultation no seizure ) Psychiatric: other (Social service consult provided ), no depression Hematologic/Lymphatic: no easy bleeding - Vital Signs Vital signs: Vital Signs Pulse Pulse Ox 110 H 88 02/02/17 15:07 02/02/17 15:07 Temp Pulse Resp BP Pulse Ox 98.1 F 99 H 12 103/54 99 02/03/17 11:08 02/03/17 16:27 02/03/17 11:08 02/03/17 14:54 02/03/17 16:27 Results Result Diagrams: 02/02/17 18:08 02/03/17 13:50 Abnormal lab results 02/02/17 02/02/17 02/02/17 Range/Units 16:00 18:08 Unknown WBC 12.6 H (4.5-11.0) K/mm3 MCV 77 L (79-97) fl MCH 25 L (28-32) pg RDW 16.5 H (13.2-15.2) % Seg Neutrophils % 76.4 H (40.0-70.0) % Seg Neutrophils # 9.6 H (1.8-7.7) K/mm3 Sodium (137-145) mmol/L Potassium (3.6-5.0) mmol/L Carbon Dioxide (22-30) mmol/L BUN (7-17) mg/dL Creatinine (0.7-1.2) mg/dL Calcium (8.4-10.2) mg/dL ALT (7-56) units/L Total Protein (6.3-8.2) g/dL Albumin (3.9-5) g/dL Urine WBC (Auto) 43.0 H 7.0 H (0.0-6.0) /HPF U Epithel Cells (Auto) 40.0 H (0-13.0) /HPF / Range/Units 13:50 WBC (4.5-11.0) K/mm3 MCV (79-97) fl MCH (28-32) pg RDW (13.2-15.2) % Seg Neutrophils % (40.0-70.0) % Seg Neutrophils # (1.8-7.7) K/mm3 Sodium 136 L (137-145) mmol/L Potassium 3.1 L (3.6-5.0) mmol/L Carbon Dioxide 19 L (22-30) mmol/L BUN 3 L (7-17) mg/dL Creatinine 0.3 L (0.7-1.2) mg/dL Calcium 8.1 L (8.4-10.2) mg/dL ALT < 5 L (7-56) units/L Total Protein 6.0 L (6.3-8.2) g/dL Albumin 2.8 L (3.9-5) g/dL Urine WBC (Auto) (0.0-6.0) /HPF U Epithel Cells (Auto) (0-13.0) /HPF All other labs normal. Assessment and Plan A: 1. IUP 21.2 weeks 2. No PNC 3. Seizure disorder , recurrence during this and during this admission 4. Currently under Keppra 750 mg PO BID and is currently Stable 5. S/P Hospitalist and Neuorlogist consult P: 1. Continue current plan of care- Further evaluation with MFM Dr. Ballesteros 2. FHT per doppler QID
[2017-02-03] MEDS ORDERED: NS/KCL 40MEQ 40 MEQ/1,000 ML BAG IV SCH (19:00)
[2017-02-03] MEDS: KEPPRA PO SCH (22:06)
--- NOTE | 2017-02-04 08:22 | Progress Note ---
Assessment and Plan HD#2 21 weeks IUP poor care with seizures, substance abuse ( covering OB) 1. Patient currently on Keppra 750 mg po BID ( tolerating po) 2. labs appreciated and reviewed 3. social scientist to assist ( social issues) 4. doptones qid 5. keppra levels daily Subjective - Subjective Date of service: 02/04/17 Principal diagnosis: iup at 21 3/7 days by kendall hankins of epilepsy, recent seizure activity Patient reports: other (nausea), no new complaints, no loss of fluid, no vaginal bleeding, no contractions Objective - Vital Signs Vital Signs: Vital Signs - 12hr 02/03/17 02/03/17 02/03/17 20:22 20:24 20:27 Pulse Rate 81 83 91 H Blood Pressure 113/67 O2 Sat by Pulse 100 99 Oximetry 02/03/17 02/03/17 02/03/17 20:32 20:37 20:42 Pulse Rate 82 89 85 Blood Pressure O2 Sat by Pulse 100 100 100 Oximetry 02/03/17 02/03/17 02/03/17 20:47 20:52 20:57 Pulse Rate 84 89 85 Blood Pressure O2 Sat by Pulse 100 100 99 Oximetry 02/03/17 02/03/17 02/03/17 21:13 21:18 21:23 Pulse Rate 78 83 81 Blood Pressure O2 Sat by Pulse 99 99 99 Oximetry 02/03/17 02/03/17 02/03/17 21:28 21:33 21:38 Pulse Rate 88 86 94 H Blood Pressure O2 Sat by Pulse 99 99 99 Oximetry 02/03/17 02/03/17 02/03/17 21:43 21:48 21:53 Pulse Rate 82 100 H 90 Blood Pressure O2 Sat by Pulse 99 98 99 Oximetry 02/03/17 02/03/17 02/03/17 21:58 22:03 22:08 Pulse Rate 102 H 94 H 84 Blood Pressure O2 Sat by Pulse 100 100 100 Oximetry 02/03/17 02/03/17 02/03/17 22:13 22:18 22:23 Pulse Rate 84 83 85 Blood Pressure O2 Sat by Pulse 100 100 100 Oximetry 02/03/17 02/03/17 02/03/17 22:28 22:33 22:38 Pulse Rate 83 81 80 Blood Pressure O2 Sat by Pulse 100 100 100 Oximetry 02/03/17 02/03/17 02/03/17 22:43 22:48 22:51 Pulse Rate 83 98 H 83 Blood Pressure O2 Sat by Pulse 100 99 94 Oximetry 02/03/17 02/03/17 02/03/17 22:53 22:58 23:03 Pulse Rate 96 H 92 H 84 Blood Pressure O2 Sat by Pulse 99 100 97 Oximetry 02/03/17 02/03/17 02/03/17 23:08 23:13 23:18 Pulse Rate 81 93 H 89 Blood Pressure O2 Sat by Pulse 99 97 98 Oximetry 02/03/17 02/03/17 02/03/17 23:23 23:28 23:33 Pulse Rate 84 95 H 90 Blood Pressure O2 Sat by Pulse 98 97 98 Oximetry 02/03/17 02/03/17 02/03/17 23:38 23:43 23:48 Pulse Rate 103 H 91 H 92 H Blood Pressure O2 Sat by Pulse 98 99 98 Oximetry 02/04/17 02/04/17 02/04/17 01:25 01:27 01:30 Pulse Rate 86 87 83 Blood Pressure O2 Sat by Pulse 100 93 98 Oximetry 02/04/17 02/04/17 02/04/17 01:35 01:40 01:45 Pulse Rate 76 91 H 95 H Blood Pressure O2 Sat by Pulse 100 86 97 Oximetry 02/04/17 02/04/17 02/04/17 01:50 01:55 02:00 Pulse Rate 84 97 H 81 Blood Pressure O2 Sat by Pulse 100 99 98 Oximetry 02/04/17 02/04/17 02/04/17 02:05 02:10 02:15 Pulse Rate 74 86 82 Blood Pressure O2 Sat by Pulse 98 98 97 Oximetry 02/04/17 02/04/17 02/04/17 02:20 02:25 02:30 Pulse Rate 87 83 90 Blood Pressure O2 Sat by Pulse 96 97 98 Oximetry 02/04/17 02/04/17 02/04/17 02:35 02:40 02:45 Pulse Rate 79 90 84 Blood Pressure O2 Sat by Pulse 99 99 99 Oximetry 02/04/17 02/04/17 02/04/17 02:50 02:55 03:00 Pulse Rate 80 80 80 Blood Pressure O2 Sat by Pulse 97 97 97 Oximetry 03/18/17 03/18/17 03/18/17 03:05 03:10 03:15 Pulse Rate 95 H 74 66 Blood Pressure O2 Sat by Pulse 89 97 97 Oximetry 18/17 03/18/17 03/18/17 03:20 03:25 03:30 Pulse Rate 66 67 70 Blood Pressure O2 Sat by Pulse 97 96 97 Oximetry 18/17 03/18/17 03/18/17 03:35 03:40 03:45 Pulse Rate 70 69 75 Blood Pressure O2 Sat by Pulse 98 98 98 Oximetry 18/17 03/18/17 03/18/17 03:50 03:55 04:00 Pulse Rate 73 84 71 Blood Pressure O2 Sat by Pulse 96 97 96 Oximetry 18/17 03/18/17 03/18/17 04:05 04:10 04:15 Pulse Rate 93 H 69 74 Blood Pressure O2 Sat by Pulse 97 96 96 Oximetry 18/17 03/18/17 03/18/17 04:20 04:25 04:30 Pulse Rate 75 77 81 Blood Pressure O2 Sat by Pulse 96 96 96 Oximetry 18/17 03/18/17 03/18/17 04:35 04:40 04:45 Pulse Rate 79 79 74 Blood Pressure O2 Sat by Pulse 96 96 96 Oximetry 18/17 03/18/17 03/18/17 04:50 04:55 05:00 Pulse Rate 80 78 77 Blood Pressure O2 Sat by Pulse 96 96 96 Oximetry 18/17 03/18/17 03/18/17 05:05 05:10 05:15 Pulse Rate 75 78 79 Blood Pressure O2 Sat by Pulse 96 97 95 Oximetry 18/17 03/18/17 03/18/17 05:20 05:25 05:30 Pulse Rate 104 H 84 83 Blood Pressure O2 Sat by Pulse 97 97 97 Oximetry 18/17 03/18/17 03/18/17 05:35 05:40 05:45 Pulse Rate 88 95 H 85 Blood Pressure O2 Sat by Pulse 96 97 96 Oximetry 18/17 03/18/17 03/18/17 05:50 05:55 06:00 Pulse Rate 80 79 80 Blood Pressure O2 Sat by Pulse 96 95 96 Oximetry 18/17 03/18/17 03/18/17 06:05 06:10 06:15 Pulse Rate 78 74 75 Blood Pressure O2 Sat by Pulse 96 96 96 Oximetry 02/04/17 02/04/17 02/04/17 06:20 06:23 06:25 Pulse Rate 77 97 H 81 Blood Pressure O2 Sat by Pulse 96 93 97 Oximetry 02/04/17 02/04/17 02/04/17 06:31 06:34 06:36 Pulse Rate 75 69 78 Blood Pressure O2 Sat by Pulse 100 91 100 Oximetry 02/04/17 02/04/17 02/04/17 06:41 06:46 06:51 Pulse Rate 77 70 73 Blood Pressure O2 Sat by Pulse 98 98 97 Oximetry 02/04/17 02/04/17 02/04/17 06:56 07:01 07:06 Pulse Rate 71 69 79 Blood Pressure O2 Sat by Pulse 97 97 97 Oximetry 02/04/17 02/04/17 02/04/17 07:11 07:16 07:21 Pulse Rate 81 94 H 88 Blood Pressure O2 Sat by Pulse 98 98 98 Oximetry 02/04/17 02/04/17 02/04/17 07:26 07:31 07:37 Pulse Rate 78 83 75 Blood Pressure O2 Sat by Pulse 98 97 98 Oximetry 02/04/17 02/04/17 02/04/17 07:42 07:47 07:52 Pulse Rate 72 67 72 Blood Pressure O2 Sat by Pulse 100 98 98 Oximetry 02/04/17 02/04/17 02/04/17 07:57 07:58 08:02 Pulse Rate 78 71 70 Blood Pressure O2 Sat by Pulse 97 94 97 Oximetry 02/04/17 02/04/17 08:07 08:12 Pulse Rate 74 75 Blood Pressure O2 Sat by Pulse 97 96 Oximetry - Exam Breasts: deferred Cardiovascular: Regular rate, Normal S1, Normal S2 Lungs: Clear to auscultation, Normal air movement Abdomen: Present: normal appearance, soft, normal bowel sounds Uterus: Present: normal, firm, fundal height above umbilicus. Absent: bogginess , tenderness - Labs Labs: Abnormal Labs 02/02/17 02/02/17 02/02/17 16:00 18:08 Unknown WBC 12.6 H MCV 77 L MCH 25 L RDW 16.5 H Seg Neutrophils % 76.4 H Seg Neutrophils # 9.6 H Sodium Potassium Carbon Dioxide BUN Creatinine Calcium ALT Total Protein Albumin Urine WBC (Auto) 43.0 H 7.0 H U Epithel Cells (Auto) 40.0 H 02/03/17 13:50 WBC MCV MCH RDW Seg Neutrophils % Seg Neutrophils # Sodium 136 L Potassium 3.1 L Carbon Dioxide 19 L BUN 3 L Creatinine 0.3 L Calcium 8.1 L ALT < 5 L Total Protein 6.0 L Albumin 2.8 L Urine WBC (Auto) U Epithel Cells (Auto) Laboratory Results - last 24 hr 02/02/17 02/03/17 18:08 13:50 Sodium 136 L Potassium 3.1 L Chloride 103.1 Carbon Dioxide 19 L Anion Gap 17 BUN 3 L Creatinine 0.3 L Estimated GFR > 60 BUN/Creatinine Ratio 10.00 Glucose 76 Calcium 8.1 L Magnesium 1.7 Total Bilirubin 0.3 AST 10 ALT < 5 L Alkaline Phosphatase 52 Total Protein 6.0 L Albumin 2.8 L Albumin/Globulin Ratio 0.9 RPR Nonreactive
[2017-02-04] MEDS ORDERED: LACTATED RINGERS 1,000 ML ONE (08:50)
[2017-02-04] MEDS: ZOFRAN IV PRN ×2 (09:12→20:02)
[2017-02-04] MEDS: KEPPRA PO SCH ×2 (10:15→19:53)
[2017-02-04] MEDS: PRENATAL VITAMIN PO SCH (10:15)
--- NOTE | 2017-02-04 12:40 | Progress Note ---
Assessment and Plan Assessment and plan: 21-year-old woman who presented with seizure, medicine was consulted for potential seizure. She self stopped her Keppra because it was making her nauseous. 1. Seizures neuro comanaging, has improved since Keppra was initiated correct all electrolytes 2. Pyuria has mild pyuria, Urine cx were ordered yesterday but were not done, I spoke to RN who says she will send it off today 3. Hypokalemia continue IV K infusion patient advised to eat K rich foods upon dc, which include beans, dark leafy greens, potatoes, squash, yogurt, fish, avocados, mushrooms, and bananas 4. Hyperemesis gravidarum Continue IV fluids, continue antiemetics care per obstetrics. History Interval history: No events overnight, no new seizures, continues to have nausea Hospitalist Physical - Physical exam Narrative exam: General: Patient appears well in no distress HEENT: MMM, EOMI cardiac: S1-S2 heard lungs: clear to auscultation, abdomen: Gravid uterus extremities: no edema clubbing or cyanosis Skin: no rash or lesion Neuro: no focal deficit Psych: appropriate behavior and mood, cognition intact - Constitutional Vitals: Temp Pulse Resp BP Pulse Ox 98 F 85 16 103/60 97 02/04/17 09:01 02/04/17 12:32 02/04/17 09:01 02/04/17 09:01 02/04/17 12:32 General appearance: Present: no acute distress, well-nourished Results - Labs CBC & Chem 7: 02/02/17 18:08 02/04/17 11:38 Labs: Laboratory Last Values WBC 12.6 K/mm3 (4.5-11.0) H 02/02/17 18:08 RBC 4.35 M/mm3 (3.65-5.03) 02/02/17 18:08 Hgb 10.8 gm/dl (10.1-14.3) 02/02/17 18:08 Hct 33.4 % (30.3-42.9) 02/02/17 18:08 MCV 77 fl (79-97) L 02/02/17 18:08 MCH 25 pg (28-32) L 02/02/17 18:08 MCHC 32 % (30-34) 02/02/17 18:08 RDW 16.5 % (13.2-15.2) H 02/02/17 18:08 Plt Count 293 K/mm3 (140-440) 02/02/17 18:08 Lymph % (Auto) 16.6 % (13.4-35.0) 02/02/17 18:08 [place] % (Auto) 6.6 % (0.0-7.3) 02/02/17 18:08 Eos % (Auto) 0.2 % (0.0-4.3) 02/02/17 18:08 Baso % (Auto) 0.2 % (0.0-1.8) 02/02/17 18:08 Lymph # 2.1 K/mm3 (1.2-5.4) 02/02/17 18:08 [place] # 0.8 K/mm3 (0.0-0.8) 02/02/17 18:08 Eos # 0.0 K/mm3 (0.0-0.4) 02/02/17 18:08 Baso # 0.0 K/mm3 (0.0-0.1) 02/02/17 18:08 Seg Neutrophils % 76.4 % (40.0-70.0) H 02/02/17 18:08 Seg Neutrophils # 9.6 K/mm3 (1.8-7.7) H 02/02/17 18:08 Sickle Cell Screen Negative (Negative) 02/02/17 18:08 Sodium 136 mmol/L (137-145) L 02/03/17 13:50 Potassium 3.5 mmol/L (3.6-5.0) L 02/04/17 11:38 Chloride 103.1 mmol/L (98-107) 02/03/17 13:50 Carbon Dioxide 19 mmol/L (22-30) L 02/03/17 13:50 Anion Gap 17 mmol/L 02/03/17 13:50 BUN 3 mg/dL (7-17) L 02/03/17 13:50 Creatinine 0.3 mg/dL (0.7-1.2) L 02/03/17 13:50 Estimated GFR > 60 ml/min 02/03/17 13:50 BUN/Creatinine Ratio 10.00 % 02/03/17 13:50 Glucose 76 mg/dL (65-100) 02/03/17 13:50 Calcium 8.1 mg/dL (8.4-10.2) L 02/03/17 13:50 Magnesium 1.7 mg/dL (1.7-2.3) 02/03/17 13:50 Total Bilirubin 0.3 mg/dL (0.1-1.2) 02/03/17 13:50 AST 10 units/L (5-40) 02/03/17 13:50 ALT < 5 units/L (7-56) L 02/03/17 13:50 Alkaline Phosphatase 52 units/L (35-129) 02/03/17 13:50 Total Protein 6.0 g/dL (6.3-8.2) L 02/03/17 13:50 Albumin 2.8 g/dL (3.9-5) L 02/03/17 13:50 Albumin/Globulin Ratio 0.9 % 02/03/17 13:50 Urine Color Yellow (Yellow) 02/02/17 Unknown Urine Turbidity Clear (Clear) 02/02/17 Unknown Urine pH 6.0 (5.0-7.0) 02/02/17 Unknown Ur Specific [place] 1.018 (1.003-1.030) 02/02/17 Unknown Urine Protein 30 mg/dl mg/dL (Negative) 02/02/17 Unknown Urine Glucose (UA) Neg mg/dL (Negative) 02/02/17 Unknown Urine Ketones 80 mg/dL (Negative) 02/02/17 Unknown Urine Blood Neg (Negative) 02/02/17 Unknown Urine Nitrite Neg (Negative) 02/02/17 Unknown Urine Bilirubin Neg (Negative) 02/02/17 Unknown Urine Urobilinogen < 2.0 mg/dL (<2.0) 02/02/17 Unknown Ur Leukocyte Esterase Tr (Negative) 02/02/17 Unknown Urine WBC (Auto) 7.0 /HPF (0.0-6.0) H 02/02/17 Unknown Urine RBC (Auto) 1.0 /HPF (0.0-6.0) 02/02/17 Unknown U Epithel Cells (Auto) 1.0 /HPF (0-13.0) 02/02/17 Unknown Urine Mucus 2+ /HPF 02/02/17 Unknown Urine Opiates Screen Presumptive negative 02/02/17 Unknown Urine Methadone Screen Presumptive negative 02/02/17 Unknown Ur Barbiturates Screen Presumptive negative 02/02/17 Unknown Ur Phencyclidine Scrn Presumptive negative 02/02/17 Unknown Ur Amphetamines Screen Presumptive negative 02/02/17 Unknown U Benzodiazepines Scrn Presumptive negative 02/02/17 Unknown Urine Cocaine Screen Presumptive negative 02/02/17 Unknown U Marijuana (THC) Screen Presumptive positive 02/02/17 Unknown Drugs of Abuse Note Disclamer 02/02/17 Unknown RPR Nonreactive (Nonreactive) 02/02/17 18:08 Hep Bs Antigen Non-reactive (Negative) 02/02/17 18:08 HIV 1&2 Antibody Rapid Non react (Non React) 02/02/17 18:08 HIV P24 Antigen Non react (Non React) 02/02/17 18:08 Rubella IgG Antibody Immune (Immune) 02/02/17 18:08 Blood Type A POSITIVE 02/02/17 18:08 Antibody Screen Positive 02/02/17 18:08 Antibody Identification Non-specific Antibody 02/02/17 18:08
--- NOTE | 2017-02-04 16:17 | Consultation ---
History of Present Illness Consult date: 02/04/17 Requesting physician: TEVIN POSADA Reason for consult: other (seizure disorder) History of present illness: Date of Consult: Saturday, February 04, 2017 Patient Name: TAB MOCK : 89 Consulting Physician: Viridiana Ballesteros M.D. Admitting Physicians: Dr. Johanna Goyal, et al Admission Diagnosis: IUP at 21 weeks Seizure disorder. As you are likely aware this is a para 3003 is currently at 21 weeks and gestation hospitalized due to epileptic seizure disorder. Patient has been counseled during this visit by neurology Please see their reports attached when completed.. LAST ULTRASOUND * Cisner[place] * Presentation: Breech * heart rate: 152 beats/minute * Amniotic fluid index: WNL * EFW: 420 mg Past History Past Medical History: seizure Past Surgical History: no surgical history Family/Genetic History: none - Obstetrical History : 4 Medications and Allergies Allergies Allergy/AdvReac Type Severity Reaction Status Date / Time [place] And Derivatives Allergy Unknown Verified 02/02/17 15:28 Home Medications Medication Instructions Recorded Confirmed Last Taken Type levETIRAcetam [Keppra TAB] 750 mg PO BID #60 tablet 06/06/16 02/02/17 Unknown Rx Pnv with Ca,No.72/Iron/FA [Pnv 1 each PO DAILY 02/02/17 02/02/17 Unknown History Plus Multivit Tab] Active Meds: Active Medications Acetaminophen (Tylenol) 650 mg PO Q4H PRN PRN Reason: Pain MILD(1-3)/Fever >100.5/TORRES Last Admin: 02/03/17 12:25 Dose: 650 mg Docusate Sodium (Colace) 100 mg PO Q12H PRN PRN Reason: Constipation Levetiracetam 500 mg/ Dextrose 105 mls @ 400 mls/hr IV Q12HR ANKUR Last Admin: 02/03/17 10:30 Dose: 400 mls/hr Levetiracetam 750 mg/ Dextrose 107.5 mls @ 400 mls/hr IV Q12HR ANKUR Potassium Chloride/Sodium Chloride (Ns/Kcl 40meq) 40 meq in 1,000 mls @ 100 mls /hr IV DIRECT ANKUR Last Admin: 02/03/17 19:36 Dose: 100 mls/hr Levetiracetam (Keppra) 750 mg PO BID [facility] Last Admin: 02/04/17 10:15 Dose: 750 mg Magnesium Hydroxide (Milk Of Magnesia) 30 ml PO QHS PRN PRN Reason: Laxative Effect Multivitamins/Iron/Calcium ( Vitamin) 1 each PO QDAY [facility] Last Admin: 02/04/17 10:15 Dose: 1 each Ondansetron HCl (Zofran) 4 mg IV Q8H PRN PRN Reason: Nausea And Vomiting Last Admin: 02/04/17 09:12 Dose: 4 mg Simethicone (Mylicon) 80 mg PO Q6H PRN PRN Reason: Gas pain Last Admin: 02/04/17 02:39 Dose: 80 mg - Vital Signs Vital signs: Vital Signs Pulse Pulse Ox 110 H 88 02/02/17 15:07 02/02/17 15:07 Temp Pulse Resp BP Pulse Ox 98 F 94 H 16 105/55 100 02/04/17 09:01 02/04/17 16:09 02/04/17 09:01 02/04/17 16:08 02/04/17 16:09 Results Result Diagrams: 02/02/17 18:08 02/04/17 11:38 Abnormal lab results 02/03/17 02/04/17 Range/Units 13:50 11:38 Potassium 3.5 L (3.6-5.0) mmol/L ALT < 5 L (7-56) units/L All other labs normal. Assessment and Plan RECOMMENDATIONS: * Seizure disorder - Needs neuology follow-up. * Pyuria - UA and urine culture pending. * Hypokalemia. * Hyperemesis gravidarum - management as necessary.
--- NOTE | 2017-02-04 16:35 | Event Note ---
Date: 02/04/17 Was called by the nurse and per Frantz patient sustained two seizures ( one witnessed and one not) VSS O2 sat 100% spoke with patient AAOx3 NAD CVS: RRR s1s2 lungs: CTA no wheezes no crackles abd: soft nt + gravid ext: No C/C/e A/P 21 weeks with seizures, postictal will change to Keppra 750 mg IV continue padding and observation percocet for headache x1 will notify Neurology for recommnedations would consider lamictal vs phenobarbital vs continue keppra ( all would only have a 5-7% risk to fetus [facility] has evaluated patient and per service baby "fine"- will need followup after discharge from hospital Annie qid patient and partner were explained plan for the today and agree with above
[2017-02-04] MEDS: PERCOCET 5/325 PO PRN (16:51)
[2017-02-04] MEDS ORDERED: NS/KCL 20MEQ 20 MEQ/1,000 ML BAG IV ONE (20:23)
[2017-02-04] MEDS ORDERED: VALIUM IV ONE (20:50)
[2017-02-04] MEDS: KEPPRA 750 MG in D5W 100 ML IV SCH (21:40)
[2017-02-05] MEDS: KEPPRA PO SCH (04:10)
[2017-02-05 07:23] LABS: Albumin 2.8 g/dL (3.9-5); Alkaline Phosphatase 46 units/L (35-129); Anion Gap 16 mmol/L; Bilirubin,Total < 0.2 mg/dL (0.1-1.2); Blood Urea Nitrogen 2 mg/dL (7-17); Calcium 7.7 mg/dL (8.4-10.2); Carbon Dioxide 19 mmol/L (22-30); Glucose 73 mg/dL (65-100); Potassium 3.4 mmol/L (3.6-5.0); Sodium 138 mmol/L (137-145); Total Protein 5.5 g/dL (6.3-8.2)
[2017-02-05 07:36] LABS: Alanine Aminotransferase < 5 units/L (7-56)
[2017-02-05] MEDS: PHENERGAN PR PRN ×2 (07:53→16:20)
[2017-02-05] MEDS ORDERED: LACTATED RINGERS 1,000 ML IV SCH (08:00)
[2017-02-05] MEDS: PRENATAL VITAMIN PO SCH (10:06)
[2017-02-05] MEDS: KEPPRA 750 MG in D5W 100 ML IV SCH ×2 (10:52→22:54)
--- NOTE | 2017-02-05 11:03 | Progress Note ---
Assessment and Plan Assessment and plan: 21-year-old 21 week woman who presented with seizure, medicine was consulted for potential seizure. She self stopped her Keppra because it was making her nauseous. 1. Seizures neuro comanaging, still uncontrolled, neurology to advise on seizure meds correct all electrolytes 2. Pyuria has mild pyuria, suspicion is low as she is asymptomatic, sup urine cx 3. Hypokalemia continue IV K infusion patient advised to eat K rich foods upon dc, which include beans, dark leafy greens, potatoes, squash, yogurt, fish, avocados, mushrooms, and bananas 4. Hyperemesis gravidarum Continue IV fluids, continue antiemetics care per obstetrics. Hospitalist Physical - Constitutional Vitals: Temp Pulse Resp BP Pulse Ox 98.0 F 70 16 90/54 100 02/05/17 07:25 02/05/17 10:55 02/05/17 07:25 02/05/17 07:29 02/05/17 10:55 General appearance: Present: no acute distress, well-nourished Results - Labs CBC & Chem 7: 02/02/17 18:08 02/05/17 06:44 Labs: Laboratory Last Values WBC 12.6 K/mm3 (4.5-11.0) H 02/02/17 18:08 RBC 4.35 M/mm3 (3.65-5.03) 02/02/17 18:08 Hgb 10.8 gm/dl (10.1-14.3) 02/02/17 18:08 Hct 33.4 % (30.3-42.9) 02/02/17 18:08 MCV 77 fl (79-97) L 02/02/17 18:08 MCH 25 pg (28-32) L 02/02/17 18:08 MCHC 32 % (30-34) 02/02/17 18:08 RDW 16.5 % (13.2-15.2) H 02/02/17 18:08 Plt Count 293 K/mm3 (140-440) 02/02/17 18:08 Lymph % (Auto) 16.6 % (13.4-35.0) 02/02/17 18:08 [place] % (Auto) 6.6 % (0.0-7.3) 02/02/17 18:08 Eos % (Auto) 0.2 % (0.0-4.3) 02/02/17 18:08 Baso % (Auto) 0.2 % (0.0-1.8) 02/02/17 18:08 Lymph # 2.1 K/mm3 (1.2-5.4) 02/02/17 18:08 [place] # 0.8 K/mm3 (0.0-0.8) 02/02/17 18:08 Eos # 0.0 K/mm3 (0.0-0.4) 02/02/17 18:08 Baso # 0.0 K/mm3 (0.0-0.1) 02/02/17 18:08 Seg Neutrophils % 76.4 % (40.0-70.0) H 02/02/17 18:08 Seg Neutrophils # 9.6 K/mm3 (1.8-7.7) H 02/02/17 18:08 Sickle Cell Screen Negative (Negative) 02/02/17 18:08 Sodium 138 mmol/L (137-145) 02/05/17 06:44 Potassium 3.4 mmol/L (3.6-5.0) L 02/05/17 06:44 Chloride 106.0 mmol/L (98-107) 02/05/17 06:44 Carbon Dioxide 19 mmol/L (22-30) L 02/05/17 06:44 Anion Gap 16 mmol/L 02/05/17 06:44 BUN 2 mg/dL (7-17) L 02/05/17 06:44 Creatinine 0.4 mg/dL (0.7-1.2) L 02/05/17 06:44 Estimated GFR > 60 ml/min 02/05/17 06:44 BUN/Creatinine Ratio 5.00 % 02/05/17 06:44 Glucose 73 mg/dL (65-100) 02/05/17 06:44 Calcium 7.7 mg/dL (8.4-10.2) L 02/05/17 06:44 Magnesium 1.7 mg/dL (1.7-2.3) 02/03/17 13:50 Total Bilirubin < 0.2 mg/dL (0.1-1.2) 02/05/17 06:44 AST 9 units/L (5-40) 02/05/17 06:44 ALT < 5 units/L (7-56) L 02/05/17 06:44 Alkaline Phosphatase 46 units/L (35-129) 02/05/17 06:44 Total Protein 5.5 g/dL (6.3-8.2) L 02/05/17 06:44 Albumin 2.8 g/dL (3.9-5) L 02/05/17 06:44 Albumin/Globulin Ratio 1.0 % 02/05/17 06:44 Urine Color Yellow (Yellow) 02/02/17 Unknown Urine Turbidity Clear (Clear) 02/02/17 Unknown Urine pH 6.0 (5.0-7.0) 02/02/17 Unknown Ur Specific [place] 1.018 (1.003-1.030) 02/02/17 Unknown Urine Protein 30 mg/dl mg/dL (Negative) 02/02/17 Unknown Urine Glucose (UA) Neg mg/dL (Negative) 02/02/17 Unknown Urine Ketones 80 mg/dL (Negative) 02/02/17 Unknown Urine Blood Neg (Negative) 02/02/17 Unknown Urine Nitrite Neg (Negative) 02/02/17 Unknown Urine Bilirubin Neg (Negative) 02/02/17 Unknown Urine Urobilinogen < 2.0 mg/dL (<2.0) 02/02/17 Unknown Ur Leukocyte Esterase Tr (Negative) 02/02/17 Unknown Urine WBC (Auto) 7.0 /HPF (0.0-6.0) H 02/02/17 Unknown Urine RBC (Auto) 1.0 /HPF (0.0-6.0) 02/02/17 Unknown U Epithel Cells (Auto) 1.0 /HPF (0-13.0) 02/02/17 Unknown Urine Mucus 2+ /HPF 02/02/17 Unknown Urine Opiates Screen Presumptive negative 02/02/17 Unknown Urine Methadone Screen Presumptive negative 02/02/17 Unknown Ur Barbiturates Screen Presumptive negative 02/02/17 Unknown Ur Phencyclidine Scrn Presumptive negative 02/02/17 Unknown Ur Amphetamines Screen Presumptive negative 02/02/17 Unknown U Benzodiazepines Scrn Presumptive negative 02/02/17 Unknown Urine Cocaine Screen Presumptive negative 02/02/17 Unknown U Marijuana (THC) Screen Presumptive positive 02/02/17 Unknown Drugs of Abuse Note Disclamer 02/02/17 Unknown RPR Nonreactive (Nonreactive) 02/02/17 18:08 Hep Bs Antigen Non-reactive (Negative) 02/02/17 18:08 HIV 1&2 Antibody Rapid Non react (Non React) 02/02/17 18:08 HIV P24 Antigen Non react (Non React) 02/02/17 18:08 Rubella IgG Antibody Immune (Immune) 02/02/17 18:08 Blood Type A POSITIVE 02/02/17 18:08 Antibody Screen Positive 02/02/17 18:08 Antibody Identification Non-specific Antibody 02/02/17 18:08
--- NOTE | 2017-02-05 15:04 | Progress Note ---
Assessment and Plan HD#3 21 weeks IUP poor care with seizures, substance abuse ( covering OB). No seizures overnight 1. Patient currently on Keppra 750 mg IV recently changed from po as patient not tolerating meds 2. labs appreciated and reviewed 3. social work manager to assist ( social issues) 4. doptones qid 5. keppra level unavailable until Monday Subjective - Subjective Date of service: 02/05/17 Principal diagnosis: iup at 21 3/7 days by kendall hankins of epilepsy, recent seizure activity Patient reports: other (nausea), no new complaints, no loss of fluid, no vaginal bleeding, no contractions Objective - Vital Signs Vital Signs: Vital Signs - 12hr 02/05/17 02/05/17 02/05/17 03:29 03:59 04:29 Temperature Pulse Rate 84 71 75 Pulse Rate [ From Monitor] Respiratory Rate Blood Pressure 84/48 92/53 98/52 Blood Pressure [Left Arm] Blood Pressure [Right Arm] O2 Sat by Pulse Oximetry 02/05/17 02/05/17 02/05/17 04:50 04:55 04:59 Temperature Pulse Rate 72 71 72 Pulse Rate [ From Monitor] Respiratory Rate Blood Pressure 90/54 Blood Pressure [Left Arm] Blood Pressure [Right Arm] O2 Sat by Pulse 98 98 Oximetry 02/05/17 02/05/17 02/05/17 05:00 05:05 05:10 Temperature 97.8 F Pulse Rate 69 70 69 Pulse Rate [ 94 H From Monitor] Respiratory 18 Rate Blood Pressure Blood Pressure [Left Arm] Blood Pressure 98/52 [Right Arm] O2 Sat by Pulse 100 98 98 Oximetry 02/05/17 02/05/17 02/05/17 05:15 05:20 05:25 Temperature Pulse Rate 71 72 71 Pulse Rate [ From Monitor] Respiratory Rate Blood Pressure Blood Pressure [Left Arm] Blood Pressure [Right Arm] O2 Sat by Pulse 98 98 98 Oximetry 02/05/17 02/05/17 02/05/17 05:29 05:30 05:35 Temperature Pulse Rate 72 71 73 Pulse Rate [ From Monitor] Respiratory Rate Blood Pressure 92/53 Blood Pressure [Left Arm] Blood Pressure [Right Arm] O2 Sat by Pulse 98 98 Oximetry 02/05/17 02/05/17 02/05/17 05:40 05:45 05:50 Temperature Pulse Rate 85 73 75 Pulse Rate [ From Monitor] Respiratory Rate Blood Pressure Blood Pressure [Left Arm] Blood Pressure [Right Arm] O2 Sat by Pulse 98 98 98 Oximetry 02/05/17 02/05/17 02/05/17 05:55 05:59 06:00 Temperature Pulse Rate 79 77 83 Pulse Rate [ From Monitor] Respiratory Rate Blood Pressure 95/51 Blood Pressure [Left Arm] Blood Pressure [Right Arm] O2 Sat by Pulse 98 98 Oximetry 02/05/17 02/05/17 02/05/17 06:05 06:10 06:15 Temperature Pulse Rate 71 72 74 Pulse Rate [ From Monitor] Respiratory Rate Blood Pressure Blood Pressure [Left Arm] Blood Pressure [Right Arm] O2 Sat by Pulse 98 98 99 Oximetry 02/05/17 02/05/17 02/05/17 06:20 06:25 06:29 Temperature Pulse Rate 74 79 75 Pulse Rate [ From Monitor] Respiratory Rate Blood Pressure 84/46 Blood Pressure [Left Arm] Blood Pressure [Right Arm] O2 Sat by Pulse 98 98 Oximetry 02/05/17 02/05/17 02/05/17 06:30 06:35 06:40 Temperature Pulse Rate 80 79 77 Pulse Rate [ From Monitor] Respiratory Rate Blood Pressure Blood Pressure [Left Arm] Blood Pressure [Right Arm] O2 Sat by Pulse 98 97 97 Oximetry 02/05/17 02/05/17 02/05/17 06:45 06:50 06:55 Temperature Pulse Rate 91 H 73 70 Pulse Rate [ From Monitor] Respiratory Rate Blood Pressure Blood Pressure [Left Arm] Blood Pressure [Right Arm] O2 Sat by Pulse 100 99 98 Oximetry 02/05/17 02/05/17 02/05/17 07:00 07:05 07:10 Temperature Pulse Rate 73 81 88 Pulse Rate [ From Monitor] Respiratory Rate Blood Pressure 102/50 Blood Pressure [Left Arm] Blood Pressure [Right Arm] O2 Sat by Pulse 99 99 99 Oximetry 02/05/17 02/05/17 02/05/17 07:15 07:20 07:24 Temperature Pulse Rate 71 77 79 Pulse Rate [ From Monitor] Respiratory Rate Blood Pressure 97/54 Blood Pressure [Left Arm] Blood Pressure [Right Arm] O2 Sat by Pulse 99 99 Oximetry 02/05/17 02/05/17 02/05/17 07:25 07:29 07:30 Temperature 98.0 F Pulse Rate 74 79 75 Pulse Rate [ From Monitor] Respiratory 16 Rate Blood Pressure 90/54 Blood Pressure 97/54 [Left Arm] Blood Pressure [Right Arm] O2 Sat by Pulse 98 99 Oximetry 02/05/17 02/05/17 02/05/17 07:35 07:40 07:45 Temperature Pulse Rate 79 81 78 Pulse Rate [ From Monitor] Respiratory Rate Blood Pressure Blood Pressure [Left Arm] Blood Pressure [Right Arm] O2 Sat by Pulse 99 100 100 Oximetry 02/05/17 02/05/17 02/05/17 07:50 07:55 07:57 Temperature Pulse Rate 79 89 83 Pulse Rate [ From Monitor] Respiratory Rate Blood Pressure Blood Pressure [Left Arm] Blood Pressure [Right Arm] O2 Sat by Pulse 99 99 93 Oximetry 02/05/17 02/05/17 02/05/17 08:00 08:05 08:10 Temperature Pulse Rate 67 82 81 Pulse Rate [ From Monitor] Respiratory Rate Blood Pressure Blood Pressure [Left Arm] Blood Pressure [Right Arm] O2 Sat by Pulse 84 99 100 Oximetry 02/05/17 02/05/17 02/05/17 08:15 08:20 08:25 Temperature Pulse Rate 80 81 83 Pulse Rate [ From Monitor] Respiratory Rate Blood Pressure Blood Pressure [Left Arm] Blood Pressure [Right Arm] O2 Sat by Pulse 100 100 99 Oximetry 02/05/17 02/05/17 02/05/17 08:30 08:35 08:40 Temperature Pulse Rate 85 82 90 Pulse Rate [ From Monitor] Respiratory Rate Blood Pressure Blood Pressure [Left Arm] Blood Pressure [Right Arm] O2 Sat by Pulse 98 99 100 Oximetry 02/05/17 02/05/17 02/05/17 08:45 08:50 08:55 Temperature Pulse Rate 98 H 86 89 Pulse Rate [ From Monitor] Respiratory Rate Blood Pressure Blood Pressure [Left Arm] Blood Pressure [Right Arm] O2 Sat by Pulse 99 100 99 Oximetry 02/05/17 02/05/17 02/05/17 09:00 09:05 09:10 Temperature Pulse Rate 100 H 93 H 84 Pulse Rate [ From Monitor] Respiratory Rate Blood Pressure Blood Pressure [Left Arm] Blood Pressure [Right Arm] O2 Sat by Pulse 99 99 98 Oximetry 02/05/17 02/05/17 02/05/17 09:15 09:20 09:25 Temperature Pulse Rate 76 78 76 Pulse Rate [ From Monitor] Respiratory Rate Blood Pressure Blood Pressure [Left Arm] Blood Pressure [Right Arm] O2 Sat by Pulse 98 98 98 Oximetry 02/05/17 02/05/17 02/05/17 09:30 09:35 09:40 Temperature Pulse Rate 78 75 74 Pulse Rate [ From Monitor] Respiratory Rate Blood Pressure Blood Pressure [Left Arm] Blood Pressure [Right Arm] O2 Sat by Pulse 98 98 99 Oximetry 02/05/17 02/05/17 02/05/17 09:45 09:50 09:55 Temperature Pulse Rate 71 71 77 Pulse Rate [ From Monitor] Respiratory Rate Blood Pressure Blood Pressure [Left Arm] Blood Pressure [Right Arm] O2 Sat by Pulse 98 98 98 Oximetry 02/05/17 02/05/17 02/05/17 10:00 10:05 10:10 Temperature Pulse Rate 77 81 76 Pulse Rate [ From Monitor] Respiratory Rate Blood Pressure Blood Pressure [Left Arm] Blood Pressure [Right Arm] O2 Sat by Pulse 98 99 99 Oximetry 02/05/17 02/05/17 02/05/17 10:15 10:20 10:25 Temperature Pulse Rate 76 74 74 Pulse Rate [ From Monitor] Respiratory Rate Blood Pressure Blood Pressure [Left Arm] Blood Pressure [Right Arm] O2 Sat by Pulse 98 98 99 Oximetry 02/05/17 02/05/17 02/05/17 10:30 10:35 10:40 Temperature Pulse Rate 74 76 72 Pulse Rate [ From Monitor] Respiratory Rate Blood Pressure Blood Pressure [Left Arm] Blood Pressure [Right Arm] O2 Sat by Pulse 98 98 98 Oximetry 02/05/17 02/05/17 02/05/17 10:45 10:50 10:55 Temperature Pulse Rate 78 74 70 Pulse Rate [ From Monitor] Respiratory Rate Blood Pressure Blood Pressure [Left Arm] Blood Pressure [Right Arm] O2 Sat by Pulse 98 99 100 Oximetry 02/05/17 02/05/17 02/05/17 11:00 11:05 11:10 Temperature Pulse Rate 73 73 72 Pulse Rate [ From Monitor] Respiratory Rate Blood Pressure Blood Pressure [Left Arm] Blood Pressure [Right Arm] O2 Sat by Pulse 98 98 98 Oximetry 02/05/17 02/05/17 02/05/17 11:15 11:20 11:25 Temperature Pulse Rate 89 82 91 H Pulse Rate [ From Monitor] Respiratory Rate Blood Pressure Blood Pressure [Left Arm] Blood Pressure [Right Arm] O2 Sat by Pulse 100 99 99 Oximetry 02/05/17 02/05/17 02/05/17 11:30 11:35 11:40 Temperature Pulse Rate 72 73 77 Pulse Rate [ From Monitor] Respiratory Rate Blood Pressure Blood Pressure [Left Arm] Blood Pressure [Right Arm] O2 Sat by Pulse 100 99 97 Oximetry 02/05/17 02/05/17 02/05/17 11:45 11:50 11:55 Temperature Pulse Rate 75 77 77 Pulse Rate [ From Monitor] Respiratory Rate Blood Pressure Blood Pressure [Left Arm] Blood Pressure [Right Arm] O2 Sat by Pulse 98 98 98 Oximetry 02/05/17 02/05/17 02/05/17 12:00 12:05 12:10 Temperature Pulse Rate 76 73 75 Pulse Rate [ From Monitor] Respiratory Rate Blood Pressure Blood Pressure [Left Arm] Blood Pressure [Right Arm] O2 Sat by Pulse 98 97 98 Oximetry 02/05/17 02/05/17 02/05/17 12:15 12:20 12:25 Temperature Pulse Rate 71 82 82 Pulse Rate [ From Monitor] Respiratory Rate Blood Pressure Blood Pressure [Left Arm] Blood Pressure [Right Arm] O2 Sat by Pulse 98 98 97 Oximetry 02/05/17 02/05/17 02/05/17 12:30 12:35 12:40 Temperature Pulse Rate 78 78 110 H Pulse Rate [ From Monitor] Respiratory Rate Blood Pressure Blood Pressure [Left Arm] Blood Pressure [Right Arm] O2 Sat by Pulse 97 99 100 Oximetry 02/05/17 02/05/17 02/05/17 12:45 12:50 12:55 Temperature Pulse Rate 102 H 87 94 H Pulse Rate [ From Monitor] Respiratory Rate Blood Pressure Blood Pressure [Left Arm] Blood Pressure [Right Arm] O2 Sat by Pulse 99 98 98 Oximetry 02/05/17 02/05/17 02/05/17 13:00 13:05 13:10 Temperature Pulse Rate 99 H 88 91 H Pulse Rate [ From Monitor] Respiratory Rate Blood Pressure Blood Pressure [Left Arm] Blood Pressure [Right Arm] O2 Sat by Pulse 97 99 98 Oximetry 02/05/17 02/05/17 02/05/17 13:15 13:20 13:25 Temperature Pulse Rate 93 H 103 H 96 H Pulse Rate [ From Monitor] Respiratory Rate Blood Pressure Blood Pressure [Left Arm] Blood Pressure [Right Arm] O2 Sat by Pulse 99 99 99 Oximetry 02/05/17 02/05/17 02/05/17 13:30 13:35 13:40 Temperature Pulse Rate 95 H 95 H 88 Pulse Rate [ From Monitor] Respiratory Rate Blood Pressure Blood Pressure [Left Arm] Blood Pressure [Right Arm] O2 Sat by Pulse 98 98 98 Oximetry 02/05/17 02/05/17 02/05/17 13:45 13:48 13:50 Temperature Pulse Rate 101 H 94 H 85 Pulse Rate [ From Monitor] Respiratory Rate Blood Pressure Blood Pressure [Left Arm] Blood Pressure [Right Arm] O2 Sat by Pulse 98 94 100 Oximetry 02/05/17 02/05/17 02/05/17 13:54 13:55 14:00 Temperature Pulse Rate 100 H 85 87 Pulse Rate [ From Monitor] Respiratory Rate Blood Pressure Blood Pressure [Left Arm] Blood Pressure [Right Arm] O2 Sat by Pulse 86 98 95 Oximetry 02/05/17 02/05/17 02/05/17 14:05 14:10 14:15 Temperature Pulse Rate 93 H 91 H 93 H Pulse Rate [ From Monitor] Respiratory Rate Blood Pressure Blood Pressure [Left Arm] Blood Pressure [Right Arm] O2 Sat by Pulse 98 98 98 Oximetry 02/05/17 02/05/17 02/05/17 14:20 14:25 14:30 Temperature Pulse Rate 97 H 83 87 Pulse Rate [ From Monitor] Respiratory Rate Blood Pressure Blood Pressure [Left Arm] Blood Pressure [Right Arm] O2 Sat by Pulse 99 99 98 Oximetry 02/05/17 02/05/17 02/05/17 14:35 14:38 14:40 Temperature Pulse Rate 90 109 H 89 Pulse Rate [ From Monitor] Respiratory Rate Blood Pressure Blood Pressure [Left Arm] Blood Pressure [Right Arm] O2 Sat by Pulse 98 93 99 Oximetry 02/05/17 02/05/17 02/05/17 14:45 14:50 14:55 Temperature Pulse Rate 89 87 86 Pulse Rate [ From Monitor] Respiratory Rate Blood Pressure Blood Pressure [Left Arm] Blood Pressure [Right Arm] O2 Sat by Pulse 98 97 99 Oximetry - Exam Breasts: deferred Cardiovascular: Regular rate, Normal S1, Normal S2 Lungs: Clear to auscultation Abdomen: Present: normal appearance, soft Uterus: Present: normal Extremities: normal Deep Tendon Reflex Grade: Normal +2 - Labs Labs: Abnormal Labs 02/02/17 02/02/17 02/02/17 16:00 18:08 Unknown WBC 12.6 H MCV 77 L MCH 25 L RDW 16.5 H Seg Neutrophils % 76.4 H Seg Neutrophils # 9.6 H Sodium Potassium Carbon Dioxide BUN Creatinine Calcium ALT Total Protein Albumin Urine WBC (Auto) 43.0 H 7.0 H U Epithel Cells (Auto) 40.0 H 02/03/17 02/04/17 02/05/17 13:50 11:38 06:44 WBC MCV MCH RDW Seg Neutrophils % Seg Neutrophils # Sodium 136 L Potassium 3.1 L 3.5 L 3.4 L Carbon Dioxide 19 L 19 L BUN 3 L 2 L Creatinine 0.3 L 0.4 L Calcium 8.1 L 7.7 L ALT < 5 L < 5 L Total Protein 6.0 L 5.5 L Albumin 2.8 L 2.8 L Urine WBC (Auto) U Epithel Cells (Auto) Laboratory Results - last 24 hr 02/05/17 06:44 Sodium 138 Potassium 3.4 L Chloride 106.0 Carbon Dioxide 19 L Anion Gap 16 BUN 2 L Creatinine 0.4 L Estimated GFR > 60 BUN/Creatinine Ratio 5.00 Glucose 73 Calcium 7.7 L Total Bilirubin < 0.2 AST 9 ALT < 5 L Alkaline Phosphatase 46 Total Protein 5.5 L Albumin 2.8 L Albumin/Globulin Ratio 1.0
[2017-02-05] MEDS: PERCOCET 5/325 PO PRN (23:01)
--- NOTE | 2017-02-06 07:51 | Progress Note ---
Assessment and Plan HD 5, IUP at 21 6/7 weeks , seizure disorder. Frequency for seizures decreasing consider d/c home this pm if ok with neurology. will start po keppra today. pt states she perfers oral liquid vs tablets Subjective - Subjective Date of service: 02/06/17 Principal diagnosis: iup at 21 4/7 days by kendall hankins of epilepsy, recent seizure activity Interval history: Patient denies seizure activity overnight. currently on IV Keppra. Keppra levels not yet reported. UTI- will start IV gentamicin Patient reports: new complaints, loss of fluid, vaginal bleeding, contractions Objective - Vital Signs Vital Signs: Vital Signs - 12hr 02/05/17 02/05/17 02/05/17 19:50 19:55 20:00 Pulse Rate 98 H 73 73 Respiratory Rate Blood Pressure O2 Sat by Pulse 98 96 96 Oximetry 02/05/17 02/05/17 02/05/17 20:05 20:10 20:15 Pulse Rate 74 75 87 Respiratory Rate Blood Pressure O2 Sat by Pulse 96 97 99 Oximetry 02/05/17 02/05/17 02/05/17 20:20 20:25 20:30 Pulse Rate 76 79 68 Respiratory Rate Blood Pressure O2 Sat by Pulse 98 97 97 Oximetry 02/05/17 02/05/17 02/05/17 20:35 20:40 20:43 Pulse Rate 74 72 79 Respiratory Rate Blood Pressure O2 Sat by Pulse 97 97 82 L Oximetry 02/05/17 02/05/17 02/05/17 20:45 20:46 20:50 Pulse Rate 72 73 69 Respiratory Rate Blood Pressure 90/48 O2 Sat by Pulse 97 97 Oximetry 02/05/17 02/05/17 02/05/17 20:55 21:00 21:05 Pulse Rate 73 72 89 Respiratory Rate Blood Pressure O2 Sat by Pulse 97 97 98 Oximetry 02/05/17 02/05/17 02/05/17 21:10 21:15 21:20 Pulse Rate 95 H 83 84 Respiratory Rate Blood Pressure O2 Sat by Pulse 99 97 98 Oximetry 02/05/17 02/05/17 02/05/17 21:25 21:30 21:32 Pulse Rate 81 79 94 H Respiratory Rate Blood Pressure O2 Sat by Pulse 99 100 91 Oximetry 02/05/17 02/05/17 02/05/17 21:35 21:40 21:45 Pulse Rate 82 91 H 85 Respiratory Rate Blood Pressure O2 Sat by Pulse 100 99 99 Oximetry 02/05/17 02/05/17 02/05/17 21:47 21:50 21:55 Pulse Rate 113 H 89 90 Respiratory Rate Blood Pressure O2 Sat by Pulse 91 99 99 Oximetry 02/05/17 02/05/17 02/05/17 22:00 22:05 22:10 Pulse Rate 79 85 87 Respiratory Rate Blood Pressure O2 Sat by Pulse 99 98 98 Oximetry 02/05/17 02/05/17 02/05/17 22:15 22:20 22:25 Pulse Rate 91 H 88 81 Respiratory Rate Blood Pressure O2 Sat by Pulse 98 98 99 Oximetry 02/05/17 02/05/17 02/05/17 22:30 22:35 22:40 Pulse Rate 88 86 94 H Respiratory Rate Blood Pressure O2 Sat by Pulse 98 98 97 Oximetry 02/05/17 02/05/17 02/05/17 22:45 22:50 22:55 Pulse Rate 96 H 83 78 Respiratory Rate Blood Pressure O2 Sat by Pulse 98 97 99 Oximetry 02/05/17 02/05/17 02/05/17 23:00 23:01 23:05 Pulse Rate 82 87 Respiratory 16 Rate Blood Pressure O2 Sat by Pulse 98 98 Oximetry 02/05/17 02/05/17 02/05/17 23:10 23:15 23:20 Pulse Rate 83 84 84 Respiratory Rate Blood Pressure O2 Sat by Pulse 98 100 99 Oximetry 02/05/17 02/06/17 02/06/17 23:25 03:57 04:02 Pulse Rate 93 H 72 66 Respiratory Rate Blood Pressure O2 Sat by Pulse 97 99 98 Oximetry 02/06/17 02/06/17 02/06/17 04:07 04:12 04:17 Pulse Rate 67 64 66 Respiratory Rate Blood Pressure O2 Sat by Pulse 97 97 98 Oximetry 02/06/17 02/06/17 02/06/17 04:22 04:27 04:32 Pulse Rate 62 66 72 Respiratory Rate Blood Pressure O2 Sat by Pulse 98 97 98 Oximetry 02/06/17 02/06/17 02/06/17 04:37 04:42 04:47 Pulse Rate 63 74 93 H Respiratory Rate Blood Pressure O2 Sat by Pulse 98 99 100 Oximetry 02/06/17 02/06/17 02/06/17 04:48 04:52 04:57 Pulse Rate 87 76 75 Respiratory Rate Blood Pressure O2 Sat by Pulse 92 98 99 Oximetry 02/06/17 02/06/17 02/06/17 05:02 05:07 05:12 Pulse Rate 72 73 72 Respiratory Rate Blood Pressure O2 Sat by Pulse 98 98 98 Oximetry 02/06/17 02/06/17 02/06/17 05:17 05:22 05:27 Pulse Rate 71 71 77 Respiratory Rate Blood Pressure O2 Sat by Pulse 98 98 98 Oximetry 02/06/17 02/06/17 02/06/17 05:32 05:37 05:40 Pulse Rate 85 92 H 79 Respiratory Rate Blood Pressure O2 Sat by Pulse 98 98 86 Oximetry 02/06/17 02/06/17 02/06/17 05:42 05:46 05:47 Pulse Rate 75 76 81 Respiratory Rate Blood Pressure O2 Sat by Pulse 82 L 93 97 Oximetry 02/06/17 02/06/17 02/06/17 05:52 05:57 06:02 Pulse Rate 77 72 76 Respiratory Rate Blood Pressure O2 Sat by Pulse 96 97 97 Oximetry 02/06/17 06:07 Pulse Rate 77 Respiratory Rate Blood Pressure O2 Sat by Pulse 97 Oximetry - Exam Breasts: deferred Cardiovascular: Regular rate, Normal S1, Normal S2 Lungs: Clear to auscultation Abdomen: Present: normal appearance, soft. Absent: distention, tenderness Uterus: Present: normal FHR: auscultation normal Uterine Contraction Monitor Mode: External Uterine Contraction Pattern: Absent - Labs Labs: Abnormal Labs 02/02/17 02/02/17 02/02/17 16:00 18:08 Unknown WBC 12.6 H MCV 77 L MCH 25 L RDW 16.5 H Seg Neutrophils % 76.4 H Seg Neutrophils # 9.6 H Sodium Potassium Carbon Dioxide BUN Creatinine Calcium ALT Total Protein Albumin Urine WBC (Auto) 43.0 H 7.0 H U Epithel Cells (Auto) 40.0 H 02/03/17 02/04/17 02/05/17 13:50 11:38 06:44 WBC MCV MCH RDW Seg Neutrophils % Seg Neutrophils # Sodium 136 L Potassium 3.1 L 3.5 L 3.4 L Carbon Dioxide 19 L 19 L BUN 3 L 2 L Creatinine 0.3 L 0.4 L Calcium 8.1 L 7.7 L ALT < 5 L < 5 L Total Protein 6.0 L 5.5 L Albumin 2.8 L 2.8 L Urine WBC (Auto) U Epithel Cells (Auto)
[2017-02-06] MEDS ORDERED: GARAMYCIN/NS 80 MG/100 ML 100 ML IV SCH (08:00)
[2017-02-06] MEDS ORDERED: KCL 10MEQ/100ML 10 MEQ/100 ML BAG IV SCH (08:30)
[2017-02-06] MEDS: ZOFRAN IV PRN (08:38)
--- NOTE | 2017-02-06 09:02 | Consultation ---
History of Present Illness Reason for consult: other (PT is 21.5 weeks per [facility] with 06/14/17. . Patient presented with seizure complaints on 02/02/17 . With a history of seizure disorder-she has hx of temporal lobe epilepsy. Patient was under no medical regimen upon admission and No PNC. Patient was evaluated at [facility] for seizure activity. Patient had several seizure activity on 02/03/17 Pt currently responsive and talkative Patient is currently under Keppra IV regimen . Patient denies seizure activity last night and this am . S/P Hospitalist and Neurology visit )) Past History Past Medical History: seizure Past Surgical History: no surgical history Family/Genetic History: none - Obstetrical History : 4 Medications and Allergies Allergies Allergy/AdvReac Type Severity Reaction Status Date / Time [place] And Derivatives Allergy Unknown Verified 02/02/17 15:28 Home Medications Medication Instructions Recorded Confirmed Last Taken Type levETIRAcetam [Keppra TAB] 750 mg PO BID #60 tablet 06/06/16 02/02/17 Unknown Rx Pnv with Ca,No.72/Iron/FA [Pnv 1 each PO DAILY 02/02/17 02/02/17 Unknown History Plus Multivit Tab] Nitrofurantoin [place]/M-Cryst 100 mg PO Q12HR #20 capsule 02/06/17 Unknown Rx [Macrobid CAP] levETIRAcetam [Keppra TAB] 750 mg PO BID #60 tablet 02/06/17 Unknown Rx Active Meds: Active Medications Acetaminophen (Tylenol) 650 mg PO Q4H PRN PRN Reason: Pain MILD(1-3)/Fever >100.5/TORRES Last Admin: 02/03/17 12:25 Dose: 650 mg Docusate Sodium (Colace) 100 mg PO Q12H PRN PRN Reason: Constipation Levetiracetam 750 mg/ Dextrose 107.5 mls @ 400 mls/hr IV Q12HR [facility] Last Admin: 02/05/17 22:54 Dose: 400 mls/hr Lactated Ringer's (Lactated Ringers) 1,000 mls @ 125 mls/hr IV DIRECT ANKUR Gentamicin Sulfate/Sodium Chloride (Garamycin/Ns 80 Mg/100 Ml) 100 mls @ 200 mls/hr IV Q8H [facility] Last Admin: 02/06/17 08:49 Dose: 200 mls/hr Potassium Chloride (Kcl 10meq/100ml) 10 meq in 100 mls @ 100 mls/hr IV Q1H ANKUR Stop: 02/06/17 10:29 Magnesium Hydroxide (Milk Of Magnesia) 30 ml PO QHS PRN PRN Reason: Laxative Effect Multivitamins/Iron/Calcium ( Vitamin) 1 each PO QDAY ANKUR Last Admin: 02/05/17 10:06 Dose: 1 each Ondansetron HCl (Zofran) 8 mg IV Q6H PRN PRN Reason: Nausea And Vomiting Last Admin: 02/06/17 08:38 Dose: 8 mg Oxycodone/Acetaminophen (Percocet 5/325) 1 tab PO Q4H PRN PRN Reason: Pain, Moderate (4-6) Last Admin: 02/05/17 23:01 Dose: 1 tab Promethazine HCl (Phenergan) 25 mg MS Q4H PRN PRN Reason: Nausea And Vomiting Last Admin: 02/05/17 16:20 Dose: 25 mg Simethicone (Mylicon) 80 mg PO Q6H PRN PRN Reason: Gas pain Last Admin: 02/04/17 02:39 Dose: 80 mg - Vital Signs Vital signs: Vital Signs Pulse Pulse Ox 110 H 88 02/02/17 15:07 02/02/17 15:07 Temp Pulse Resp BP Pulse Ox 98.3 F 77 16 90/48 97 02/05/17 16:21 02/06/17 06:07 02/05/17 23:01 02/05/17 20:46 02/06/17 06:07 - Physical Exam Breasts: Positive: deferred Cardiovascular: Regular rate Lungs: Positive: Clear to auscultation Abdomen: Negative: distention, tenderness, guarding Uterus: Positive: other (Nontender ) Extremities: Positive: normal Deep Tendon Reflex Grade: Normal +2 - Obstetrical FHR: auscultation normal (Doppler ) Results Result Diagrams: 02/02/17 18:08 02/05/17 06:44 All other labs normal. Assessment and Plan A: 1. IUP at 21.5 weeks 2. Epilectic Seizure disorder currently stable under IV Keppra 3. Hyperemesis Gravidarum -no emesis this am 4. No PNC 5. + UDS -THC 6. Pyuria - under medical treatment P: 1: Awaiting Keppra level 2. Awaiting Neurology follow up /recommendation for clearance
[2017-02-06] MEDS: PRENATAL VITAMIN PO SCH (09:53)
[2017-02-06] MEDS ORDERED: KEPPRA PO SCH (10:00)
--- NOTE | 2017-02-06 10:00 | Event Note ---
Date: 02/06/17 Spoke with Neurologist. Suggest switch to oral po liquid and send patient home on this dose.
--- NOTE | 2017-02-06 13:32 | Event Note ---
Date: 02/06/17 Pt has been seizure free for 24 hours. Tolerated po Keppra. Will D/c home today to f/u in 2 weeks with an OB/ [employer]. nutrition services worker has given her resources for insurance and getting her meds
--- NOTE | 2017-02-06 14:02 | Progress Note ---
Assessment and Plan Assessment and plan: 21-year-old 21 week woman who presented with seizure, medicine was consulted for potential seizure. She self stopped her Keppra because it was making her nauseous. 1. Seizures continue keppra, care per neurology 2. Pyuria gram negative UTI; OB should please send home on 3 days of an antibiotic that is safe is 3. Hypokalemia patient advised to eat K rich foods upon dc, which include beans, dark leafy greens, potatoes, squash, yogurt, fish, avocados, mushrooms, and bananas 4. Hyperemesis gravidarum improved, continue antiemetics prn care per obstetrics. Hospitalist Physical - Constitutional Vitals: Temp Pulse Resp BP Pulse Ox 98 F 110 H 16 115/60 99 02/06/17 11:25 02/06/17 13:29 02/06/17 11:25 02/06/17 13:29 02/06/17 13:15 General appearance: Present: no acute distress, well-nourished Results - Labs CBC & Chem 7: 02/02/17 18:08 02/05/17 06:44 Labs: Laboratory Last Values WBC 12.6 K/mm3 (4.5-11.0) H 02/02/17 18:08 RBC 4.35 M/mm3 (3.65-5.03) 02/02/17 18:08 Hgb 10.8 gm/dl (10.1-14.3) 02/02/17 18:08 Hct 33.4 % (30.3-42.9) 02/02/17 18:08 MCV 77 fl (79-97) L 02/02/17 18:08 MCH 25 pg (28-32) L 02/02/17 18:08 MCHC 32 % (30-34) 02/02/17 18:08 RDW 16.5 % (13.2-15.2) H 02/02/17 18:08 Plt Count 293 K/mm3 (140-440) 02/02/17 18:08 Lymph % (Auto) 16.6 % (13.4-35.0) 02/02/17 18:08 [place] % (Auto) 6.6 % (0.0-7.3) 02/02/17 18:08 Eos % (Auto) 0.2 % (0.0-4.3) 02/02/17 18:08 Baso % (Auto) 0.2 % (0.0-1.8) 02/02/17 18:08 Lymph # 2.1 K/mm3 (1.2-5.4) 02/02/17 18:08 [place] # 0.8 K/mm3 (0.0-0.8) 02/02/17 18:08 Eos # 0.0 K/mm3 (0.0-0.4) 02/02/17 18:08 Baso # 0.0 K/mm3 (0.0-0.1) 02/02/17 18:08 Seg Neutrophils % 76.4 % (40.0-70.0) H 02/02/17 18:08 Seg Neutrophils # 9.6 K/mm3 (1.8-7.7) H 02/02/17 18:08 Sickle Cell Screen Negative (Negative) 02/02/17 18:08 Sodium 138 mmol/L (137-145) 02/05/17 06:44 Potassium 3.4 mmol/L (3.6-5.0) L 02/05/17 06:44 Chloride 106.0 mmol/L (98-107) 02/05/17 06:44 Carbon Dioxide 19 mmol/L (22-30) L 02/05/17 06:44 Anion Gap 16 mmol/L 02/05/17 06:44 BUN 2 mg/dL (7-17) L 02/05/17 06:44 Creatinine 0.4 mg/dL (0.7-1.2) L 02/05/17 06:44 Estimated GFR > 60 ml/min 02/05/17 06:44 BUN/Creatinine Ratio 5.00 % 02/05/17 06:44 Glucose 73 mg/dL (65-100) 02/05/17 06:44 Calcium 7.7 mg/dL (8.4-10.2) L 02/05/17 06:44 Magnesium 1.7 mg/dL (1.7-2.3) 02/03/17 13:50 Total Bilirubin < 0.2 mg/dL (0.1-1.2) 02/05/17 06:44 AST 9 units/L (5-40) 02/05/17 06:44 ALT < 5 units/L (7-56) L 02/05/17 06:44 Alkaline Phosphatase 46 units/L (35-129) 02/05/17 06:44 Total Protein 5.5 g/dL (6.3-8.2) L 02/05/17 06:44 Albumin 2.8 g/dL (3.9-5) L 02/05/17 06:44 Albumin/Globulin Ratio 1.0 % 02/05/17 06:44 Urine Color Yellow (Yellow) 02/02/17 Unknown Urine Turbidity Clear (Clear) 02/02/17 Unknown Urine pH 6.0 (5.0-7.0) 02/02/17 Unknown Ur Specific [place] 1.018 (1.003-1.030) 02/02/17 Unknown Urine Protein 30 mg/dl mg/dL (Negative) 02/02/17 Unknown Urine Glucose (UA) Neg mg/dL (Negative) 02/02/17 Unknown Urine Ketones 80 mg/dL (Negative) 02/02/17 Unknown Urine Blood Neg (Negative) 02/02/17 Unknown Urine Nitrite Neg (Negative) 02/02/17 Unknown Urine Bilirubin Neg (Negative) 02/02/17 Unknown Urine Urobilinogen < 2.0 mg/dL (<2.0) 02/02/17 Unknown Ur Leukocyte Esterase Tr (Negative) 02/02/17 Unknown Urine WBC (Auto) 7.0 /HPF (0.0-6.0) H 02/02/17 Unknown Urine RBC (Auto) 1.0 /HPF (0.0-6.0) 02/02/17 Unknown U Epithel Cells (Auto) 1.0 /HPF (0-13.0) 02/02/17 Unknown Urine Mucus 2+ /HPF 02/02/17 Unknown Urine Opiates Screen Presumptive negative 02/02/17 Unknown Urine Methadone Screen Presumptive negative 02/02/17 Unknown Ur Barbiturates Screen Presumptive negative 02/02/17 Unknown Levetiracetam <1.0 mcg/mL 02/02/17 18:08 Ur Phencyclidine Scrn Presumptive negative 02/02/17 Unknown Ur Amphetamines Screen Presumptive negative 02/02/17 Unknown U Benzodiazepines Scrn Presumptive negative 02/02/17 Unknown Urine Cocaine Screen Presumptive negative 02/02/17 Unknown U Marijuana (THC) Screen Presumptive positive 02/02/17 Unknown Drugs of Abuse Note Disclamer 02/02/17 Unknown RPR Nonreactive (Nonreactive) 02/02/17 18:08 Hep Bs Antigen Non-reactive (Negative) 02/02/17 18:08 HIV 1&2 Antibody Rapid Non react (Non React) 02/02/17 18:08 HIV P24 Antigen Non react (Non React) 02/02/17 18:08 Rubella IgG Antibody Immune (Immune) 02/02/17 18:08 Blood Type A POSITIVE 02/02/17 18:08 Antibody Screen Positive 02/02/17 18:08 Antibody Identification Non-specific Antibody 02/02/17 18:08
[2017-02-06 14:33] VITALS: BP 110/58
== END 2017-02-06 14:39 | disposition home or self-care (01) | DRG 781 ==
LOC: TRG 14:52 → LD 14:53
PROVIDERS: ADMIT Specialist; ATTEND Specialist
DX: O99.352 Diseases of the nervous system complicating pregnancy, second trimester (principal); G40.909 Epilepsy, unspecified, not intractable, without status epilepticus; O23.42 Unspecified infection of urinary tract in pregnancy, second trimester; B96.20 Unspecified Escherichia coli [E. coli] as the cause of diseases classified elsewhere; O21.1 Hyperemesis gravidarum with metabolic disturbance; O26.892 Other specified pregnancy related conditions, second trimester; F19.10 Other psychoactive substance abuse, uncomplicated; O09.32 Supervision of pregnancy with insufficient antenatal care, second trimester; Z3A.21 21 weeks gestation of pregnancy; Z91.048 Other nonmedicinal substance allergy status; Z91.09 Other allergy status, other than to drugs and biological substances; Z91.14 Patient's other noncompliance with medication regimen
CPT/HCPCS: 36415; 76805; 80053; 80177; 80307; 81001; 82106; 83735; 84132; 85025; 85660; 86592; 86706; 86762; 86850; 86870; 86900; 86901; 87076; 87086; 87186; 87806; 96360; 96374; J1580; J1953; J2060; J2405; J3360; J3480; J7120

== ENCOUNTER 2017-02-13 17:45 | Inpatient (IN) | payer OTHER ==
[2017-02-13] MEDS ORDERED: BENADRYL PO PRN (18:03)
[2017-02-13] MEDS ORDERED: COLACE PO PRN (18:03)
--- NOTE | 2017-02-13 18:33 | History and Physical Report ---
History of Present Illness Date of examination: 02/13/17 Chief complaint: Seizures in History of present illness: Pt is a 21yo BF EDC 06/14/17: EGA 22 5/7 weeks presents to [facility] L&D via ambulance after having 2 witnessed seizures at home and 2 en-route to the hospital. She was recently discharged from [facility] 02/06/17 for a similar episode, and was discharged to home on Keppra 750mg BID, but states she could not keep her meds down due to persistent nausea and vomiting. She is currently post- ictal and received magnesium sulfate IV. During her previous hospitalization she was evaluated by Dr Bryant ( Neurologist), Dr Ballesteros (Perinatologist) and Dr Snyder (Hospitalist), each of whom will be re-consulted during this admission. Past History Past Medical History: other (seizures) Past Surgical History: no surgical history Social history: no significant social history, single - Obstetrical History Expected Date of Delivery: 06/14/17 Actual Gestation: 22 Week(s) 5 Day(s) : 4 Medications and Allergies Allergies Allergy/AdvReac Type Severity Reaction Status Date / Time [place] And Derivatives Allergy Unknown Verified 02/13/17 18:02 Home Medications Medication Instructions Recorded Confirmed Last Taken Type levETIRAcetam [Keppra TAB] 750 mg PO BID #60 tablet 06/06/16 02/13/17 02/13/17 09:00 Rx 1 Pnv with Ca,No.72/Iron/FA [Pnv 1 each PO DAILY 02/02/17 02/13/17 02/13/17 09:00 History Plus Multivit Tab] 1 Nitrofurantoin Rooks/M-Cryst 100 mg PO Q12HR #20 capsule 02/06/17 02/13/17 09:00 Rx [Macrobid CAP] 1 Active Meds: Active Medications Acetaminophen (Tylenol) 650 mg PO Q4H PRN PRN Reason: Pain MILD(1-3)/Fever >100.5/TORRES Diphenhydramine HCl (Benadryl) 25 mg PO Q6H PRN PRN Reason: Itching Docusate Sodium (Colace) 100 mg PO Q12H PRN PRN Reason: Constipation Lactated Ringer's (Lactated Ringers) 1,000 mls @ 125 mls/hr IV DIRECT ANKUR Magnesium Sulfate (Magnesium Sulfate 40gm/1000ml) 40 gm in 1,000 mls @ 50 mls/ hr IV DIRECT ANKUR PRN Reason: 2 GM/HR Levetiracetam 750 mg/ Dextrose 107.5 mls @ 400 mls/hr IV Q12HR ANKUR Multivitamins/Iron/Calcium ( Vitamin) 1 each PO QDAY ANKUR Ondansetron HCl (Zofran) 4 mg IV Q6H PRN PRN Reason: Nausea And Vomiting Review of Systems All systems: negative - Vital Signs Vital signs: Vital Signs Pulse Pulse Ox 115 H 100 02/13/17 17:48 02/13/17 17:48 Temp Pulse Resp BP Pulse Ox 115 H 100 02/13/17 18:18 02/13/17 18:18 - Physical Exam Cardiovascular: Regular rate Lungs: Positive: Clear to auscultation Abdomen: Positive: normal appearance, soft Genitourinary (Female): Positive: normal external genitalia Uterus: Positive: enlarged Extremities: Positive: normal Deep Tendon Reflex Grade: Normal +2 - Obstetrical FHR: auscultation normal Results All other labs normal. Assessment and Plan - Patient Problems (1) 22 weeks gestation of Onset Date: 02/13/17 Current Visit: Yes Status: Acute Plan to address problem: A: IUP @ 22 5/7 weeks Seizure disorder in - non-compliant No care this P: Admit to L&D for Observation Obtain APA, Neurology and Hospitalist consultations Will obtain labs including Keppra levels and Ob u/s for wellbeing (2) Seizure disorder during in second trimester Onset Date: 02/13/17 Current Visit: Yes Status: Acute
[2017-02-13] MEDS ORDERED: MAGNESIUM SULFATE 40GM/1000ML 40 GM/1,000 ML BAG IV SCH (19:00)
[2017-02-13] MEDS: LACTATED RINGERS 1,000 ML IV SCH (19:00)
[2017-02-13] MEDS: ZOFRAN IV PRN (20:14)
[2017-02-13 20:22] LABS: Bilirubin,Urine NEG (Negative); Blood,Urine NEG (Negative); Ketones,Urine 80 mg/dL (Negative); Leukocyte Esterase,Urine NEG (Negative); Mucus,Urine 2+ /HPF; Nitrite,Urine NEG (Negative); Protein,Urine <15 mg/dL mg/dL (Negative); RBC,Urine < 1.0 /HPF (0.0-6.0); Urobilinogen,Urine < 2.0 mg/dL (<2.0); WBC,Urine < 1.0 /HPF (0.0-6.0)
[2017-02-13 20:36] LABS: Basophils % (Auto) 0.3 % (0.0-1.8); Eosinophils % (Auto) 0.1 % (0.0-4.3); Hematocrit 29.9 % (30.3-42.9); Hemoglobin 9.9 gm/dl (10.1-14.3); Mean Corpuscular HGB Conc 33 % (30-34); Mean Corpuscular Hemoglobin 25 pg (28-32); Mean Corpuscular Volume 77 fl (79-97); Platelet Count 244 K/mm3 (140-440); Red Blood Count 3.91 M/mm3 (3.65-5.03); Red Cell Distribution Width 15.7 % (13.2-15.2); White Blood Count 7.4 K/mm3 (4.5-11.0)
[2017-02-13 20:41] LABS: Alanine Aminotransferase 6 units/L (7-56); Albumin 3.4 g/dL (3.9-5); Albumin/Globulin Ratio 0.9 %; Alkaline Phosphatase 62 units/L (35-129); Anion Gap 18 mmol/L; BUN/Creatinine Ratio 13.33; Bilirubin,Total 0.2 mg/dL (0.1-1.2); Blood Urea Nitrogen 4 mg/dL (7-17); Calcium 8.2 mg/dL (8.4-10.2); Carbon Dioxide 17 mmol/L (22-30); Chloride 103.1 mmol/L (98-107); Glucose 71 mg/dL (65-100); Potassium 3.5 mmol/L (3.6-5.0); Sodium 135 mmol/L (137-145); Total Protein 7.1 g/dL (6.3-8.2)
[2017-02-13] MEDS: PERCOCET 5/325 PO PRN (21:29)
[2017-02-13] MEDS: KEPPRA 750 MG in D5W 100 ML IV SCH (22:03)
--- NOTE | 2017-02-13 23:10 | Event Note ---
Date: 02/13/17 See Consult in reports Seizure disorder Cont IV Keppra 750 mg q12 h Transition to PO keppra 750 q12h Take an extra dose of keppra if she has vomiting immediately after taking keppra
--- NOTE | 2017-02-14 00:01 | History and Physical Report ---
CHIEF COMPLAINT: Ongoing seizures today. HISTORY OF PRESENT ILLNESS: A 21-year-old -[place] female 4, para 3, expected date of delivery 06/14/2017, 22 weeks , admitted for two witnessed seizures at home and two on [address] The patient has been postictal the whole day. The patient has been on p.o. Keppra, but she is not able to keep her medicines down because of hyperemesis gravidarum. The patient is alert and oriented at the time of my examination, and also had magnesium sulfate IV given. PAST MEDICAL HISTORY: Significant for seizure disorder, on Keppra 750 q.12. PAST SURGICAL HISTORY: No surgical history. SOCIAL HISTORY: Single. Does not smoke. FAMILY HISTORY: Significant for no hypertension and no diabetes. CURRENT MEDICATIONS: Keppra 750 q.12 and nitrofurantoin 100 q.12. REVIEW OF SYSTEMS: Other than persistency. Recurrent seizures today. Review of systems essentially negative. A 14-point review of system was done. PHYSICAL EXAMINATION: GENERAL: Young female, cooperative during examination, and talking well. VITAL SIGNS: Blood pressure is 100/70, pulse is 102, O2 sats 98%. HEENT: Unremarkable. Pupils equal and reactive. NECK: Supple, no lymphadenopathy, no thyromegaly. LUNGS: Clear to auscultation and percussion. Good air entry. CARDIOVASCULAR: S1, S2 heard. No gallop, no murmur, no rub. Apical impulse in the left fifth intercostal space and midclavicular line. ABDOMEN: Consistent with 22 weeks' . EXTREMITIES: Good pedal pulses. No pedal edema. CENTRAL NERVOUS SYSTEM: Alert and oriented x4. SKIN: Normal. LABORATORY DATA: Significant for hemoglobin of 9.9, hematocrit of 29.9, and potassium of 3.5 slightly low, sodium of 135, BUN and creatinine of 4 and 0.3, albumin is slightly low at 3.4. Urine ketones are 80. ASSESSMENT AND PLAN: 1. Seizure disorder, uncontrolled. We will continue IV Keppra for the time being. Also, Neurology consult for Dr. Bryant to give his recommendations. My recommendation would be to continue IV Keppra 750 q.12 and transition to p.o. 750 q.12, but take an extra dose; however, if she vomits within the 15 minutes of taking the medicine. At this point, the seizure disorder has been precipitated because of the and also because of not able to retain her Keppra p.o. medications because of hyperemesis gravidarum. 2. The final suggestion to be deferred to Dr. Bryant. as per Dr. Ranjith Cortés. 3. Deep venous thrombosis prophylaxis, sequential compression devices. JOB# [id number] JAIME/NTS
[2017-02-14] MEDS: ZOFRAN IV PRN ×4 (03:20→23:59)
[2017-02-14] MEDS: LACTATED RINGERS 1,000 ML IV SCH (04:10)
[2017-02-14] MEDS: TYLENOL PO PRN ×2 (04:55→08:39)
--- NOTE | 2017-02-14 07:29 | Progress Note ---
Assessment and Plan - Patient Problems (1) 22 weeks gestation of Onset Date: 02/13/17 Current Visit: Yes Status: Acute Plan to address problem: A: IUP @ 22 6/7 weeks Seizure disorder in - non-compliant No care this P: Continue present management Awaiting APA and Neurology consultations Will obtain Keppra levels and Ob u/s for wellbeing (2) Seizure disorder during in second trimester Onset Date: 02/13/17 Current Visit: Yes Status: Acute Subjective - Subjective Date of service: 02/14/17 Principal diagnosis: IUP @ 22 6/7 weeks; Seizure disorder Interval history: Pt is a 21yo BF EDC 06/14/17: EGA 22 6/7 weeks, currently on Keppra 750mg IV BID and feeling better. No further vomiting with IV Zofran. Patient reports: movement normal, no new complaints, no loss of fluid, no vaginal bleeding, no contractions Objective - Vital Signs Vital Signs: Vital Signs - 12hr 02/13/17 02/13/17 02/13/17 19:29 19:51 19:56 Temperature 98.3 F Pulse Rate 118 H 121 H 117 H Pulse Rate [ 115 H Right From Monitor] Respiratory 18 Rate Blood Pressure Blood Pressure 116/56 [Right Arm] O2 Sat by Pulse 99 99 99 Oximetry 02/13/17 02/13/17 02/13/17 20:01 20:04 20:06 Temperature Pulse Rate 121 H 111 H 121 H Pulse Rate [ Right From Monitor] Respiratory Rate Blood Pressure 116/56 Blood Pressure [Right Arm] O2 Sat by Pulse 99 99 Oximetry 02/13/17 02/13/17 02/13/17 20:11 20:16 20:21 Temperature Pulse Rate 119 H 115 H 116 H Pulse Rate [ Right From Monitor] Respiratory Rate Blood Pressure Blood Pressure [Right Arm] O2 Sat by Pulse 99 99 98 Oximetry 02/13/17 02/13/17 02/13/17 20:26 20:31 20:36 Temperature Pulse Rate 116 H 112 H 125 H Pulse Rate [ Right From Monitor] Respiratory Rate Blood Pressure Blood Pressure [Right Arm] O2 Sat by Pulse 99 100 98 Oximetry 02/13/17 02/13/17 02/13/17 20:41 20:56 21:01 Temperature Pulse Rate 120 H 117 H 117 H Pulse Rate [ Right From Monitor] Respiratory Rate Blood Pressure Blood Pressure [Right Arm] O2 Sat by Pulse 99 100 100 Oximetry 02/13/17 02/13/17 02/13/17 21:06 21:11 21:16 Temperature Pulse Rate 124 H 120 H 116 H Pulse Rate [ Right From Monitor] Respiratory Rate Blood Pressure Blood Pressure [Right Arm] O2 Sat by Pulse 100 100 100 Oximetry 02/13/17 02/13/17 02/13/17 21:21 21:25 21:26 Temperature Pulse Rate 116 H 117 H 122 H Pulse Rate [ Right From Monitor] Respiratory Rate Blood Pressure 125/69 Blood Pressure [Right Arm] O2 Sat by Pulse 100 100 Oximetry 02/13/17 02/13/17 02/13/17 21:29 21:31 21:36 Temperature Pulse Rate 122 H 119 H Pulse Rate [ Right From Monitor] Respiratory 18 Rate Blood Pressure Blood Pressure [Right Arm] O2 Sat by Pulse 100 100 Oximetry 02/13/17 02/13/17 02/13/17 21:41 21:46 21:51 Temperature Pulse Rate 117 H 119 H 117 H Pulse Rate [ Right From Monitor] Respiratory Rate Blood Pressure Blood Pressure [Right Arm] O2 Sat by Pulse 99 99 99 Oximetry 02/13/17 02/13/17 02/13/17 21:56 22:01 22:06 Temperature Pulse Rate 108 H 112 H 109 H Pulse Rate [ Right From Monitor] Respiratory Rate Blood Pressure Blood Pressure [Right Arm] O2 Sat by Pulse 97 98 98 Oximetry 02/13/17 02/13/17 02/13/17 22:11 22:16 22:21 Temperature Pulse Rate 110 H 107 H 103 H Pulse Rate [ Right From Monitor] Respiratory Rate Blood Pressure Blood Pressure [Right Arm] O2 Sat by Pulse 97 97 98 Oximetry 02/13/17 02/13/17 02/13/17 22:26 22:29 22:31 Temperature Pulse Rate 118 H 110 H Pulse Rate [ Right From Monitor] Respiratory 18 Rate Blood Pressure Blood Pressure [Right Arm] O2 Sat by Pulse 99 99 Oximetry 02/13/17 02/13/17 02/13/17 22:36 22:41 22:46 Temperature Pulse Rate 108 H 102 H 102 H Pulse Rate [ Right From Monitor] Respiratory Rate Blood Pressure Blood Pressure [Right Arm] O2 Sat by Pulse 99 98 98 Oximetry 02/13/17 02/13/17 02/13/17 22:51 22:56 23:01 Temperature Pulse Rate 103 H 98 H 97 H Pulse Rate [ Right From Monitor] Respiratory Rate Blood Pressure Blood Pressure [Right Arm] O2 Sat by Pulse 99 98 98 Oximetry 02/13/17 02/13/17 02/13/17 23:06 23:11 23:16 Temperature Pulse Rate 95 H 95 H 94 H Pulse Rate [ Right From Monitor] Respiratory Rate Blood Pressure Blood Pressure [Right Arm] O2 Sat by Pulse 98 97 98 Oximetry 02/13/17 02/13/17 02/13/17 23:21 23:26 23:31 Temperature Pulse Rate 91 H 94 H 93 H Pulse Rate [ Right From Monitor] Respiratory Rate Blood Pressure Blood Pressure [Right Arm] O2 Sat by Pulse 97 98 98 Oximetry 02/13/17 02/13/17 02/13/17 23:36 23:41 23:46 Temperature Pulse Rate 94 H 94 H 89 Pulse Rate [ Right From Monitor] Respiratory Rate Blood Pressure Blood Pressure [Right Arm] O2 Sat by Pulse 97 98 98 Oximetry 02/13/17 02/13/17 02/14/17 23:51 23:56 00:01 Temperature Pulse Rate 92 H 90 89 Pulse Rate [ Right From Monitor] Respiratory Rate Blood Pressure Blood Pressure [Right Arm] O2 Sat by Pulse 98 98 97 Oximetry 02/14/17 02/14/17 02/14/17 00:06 00:11 00:16 Temperature Pulse Rate 89 89 89 Pulse Rate [ Right From Monitor] Respiratory Rate Blood Pressure Blood Pressure [Right Arm] O2 Sat by Pulse 98 98 98 Oximetry 02/14/17 02/14/17 02/14/17 00:21 00:26 00:31 Temperature Pulse Rate 86 93 H 89 Pulse Rate [ Right From Monitor] Respiratory Rate Blood Pressure Blood Pressure [Right Arm] O2 Sat by Pulse 98 99 98 Oximetry 02/14/17 02/14/17 02/14/17 00:36 00:41 00:46 Temperature Pulse Rate 93 H 87 91 H Pulse Rate [ Right From Monitor] Respiratory Rate Blood Pressure Blood Pressure [Right Arm] O2 Sat by Pulse 98 98 98 Oximetry 02/14/17 02/14/17 02/14/17 00:51 00:56 01:01 Temperature Pulse Rate 86 88 89 Pulse Rate [ Right From Monitor] Respiratory Rate Blood Pressure Blood Pressure [Right Arm] O2 Sat by Pulse 99 99 99 Oximetry 02/14/17 02/14/17 02/14/17 01:06 01:11 01:16 Temperature Pulse Rate 88 89 86 Pulse Rate [ Right From Monitor] Respiratory Rate Blood Pressure Blood Pressure [Right Arm] O2 Sat by Pulse 98 98 98 Oximetry 02/14/17 02/14/17 02/14/17 01:21 01:26 01:31 Temperature Pulse Rate 87 92 H 88 Pulse Rate [ Right From Monitor] Respiratory Rate Blood Pressure Blood Pressure [Right Arm] O2 Sat by Pulse 98 98 98 Oximetry 02/14/17 02/14/17 02/14/17 01:36 01:41 01:46 Temperature Pulse Rate 87 88 95 H Pulse Rate [ Right From Monitor] Respiratory Rate Blood Pressure Blood Pressure [Right Arm] O2 Sat by Pulse 98 98 99 Oximetry 02/14/17 02/14/17 02/14/17 01:51 01:56 02:01 Temperature Pulse Rate 93 H 92 H 92 H Pulse Rate [ Right From Monitor] Respiratory Rate Blood Pressure Blood Pressure [Right Arm] O2 Sat by Pulse 98 98 99 Oximetry 02/14/17 02/14/17 02/14/17 02:06 02:11 02:16 Temperature Pulse Rate 94 H 90 100 H Pulse Rate [ Right From Monitor] Respiratory Rate Blood Pressure Blood Pressure [Right Arm] O2 Sat by Pulse 98 99 99 Oximetry 02/14/17 02/14/17 02/14/17 02:21 02:26 02:31 Temperature Pulse Rate 94 H 93 H 92 H Pulse Rate [ Right From Monitor] Respiratory Rate Blood Pressure Blood Pressure [Right Arm] O2 Sat by Pulse 99 99 99 Oximetry 02/14/17 02/14/17 02/14/17 02:36 02:41 02:46 Temperature Pulse Rate 91 H 97 H 96 H Pulse Rate [ Right From Monitor] Respiratory Rate Blood Pressure Blood Pressure [Right Arm] O2 Sat by Pulse 100 99 97 Oximetry 02/14/17 02/14/17 02/14/17 02:51 02:56 03:01 Temperature Pulse Rate 92 H 94 H 102 H Pulse Rate [ Right From Monitor] Respiratory Rate Blood Pressure Blood Pressure [Right Arm] O2 Sat by Pulse 98 97 98 Oximetry 02/14/17 02/14/17 02/14/17 03:06 03:11 03:16 Temperature Pulse Rate 93 H 93 H 108 H Pulse Rate [ Right From Monitor] Respiratory Rate Blood Pressure Blood Pressure [Right Arm] O2 Sat by Pulse 97 96 98 Oximetry 02/14/17 02/14/17 02/14/17 03:21 03:26 03:31 Temperature Pulse Rate 114 H 114 H 100 H Pulse Rate [ Right From Monitor] Respiratory Rate Blood Pressure Blood Pressure [Right Arm] O2 Sat by Pulse 98 97 100 Oximetry 02/14/17 02/14/17 02/14/17 03:36 03:41 03:46 Temperature Pulse Rate 104 H 107 H 107 H Pulse Rate [ Right From Monitor] Respiratory Rate Blood Pressure Blood Pressure [Right Arm] O2 Sat by Pulse 99 100 99 Oximetry 02/14/17 02/14/17 02/14/17 04:00 04:04 04:05 Temperature 98.3 F Pulse Rate 107 H 99 H 105 H Pulse Rate [ 107 H Right From Monitor] Respiratory 18 Rate Blood Pressure Blood Pressure [Right Arm] O2 Sat by Pulse 100 86 98 Oximetry 02/14/17 02/14/17 02/14/17 04:10 04:15 04:20 Temperature Pulse Rate 99 H 101 H 102 H Pulse Rate [ Right From Monitor] Respiratory Rate Blood Pressure Blood Pressure [Right Arm] O2 Sat by Pulse 100 100 99 Oximetry 02/14/17 02/14/17 02/14/17 04:25 04:30 04:35 Temperature Pulse Rate 111 H 106 H 103 H Pulse Rate [ Right From Monitor] Respiratory Rate Blood Pressure Blood Pressure [Right Arm] O2 Sat by Pulse 100 100 100 Oximetry 02/14/17 02/14/17 02/14/17 04:40 04:45 04:50 Temperature Pulse Rate 105 H 105 H 107 H Pulse Rate [ Right From Monitor] Respiratory Rate Blood Pressure Blood Pressure [Right Arm] O2 Sat by Pulse 98 97 99 Oximetry 02/14/17 02/14/17 02/14/17 04:52 04:55 05:00 Temperature Pulse Rate 110 H 102 H 109 H Pulse Rate [ Right From Monitor] Respiratory 18 Rate Blood Pressure Blood Pressure [Right Arm] O2 Sat by Pulse 92 100 100 Oximetry 02/14/17 02/14/17 02/14/17 05:05 05:10 05:15 Temperature Pulse Rate 109 H 101 H 100 H Pulse Rate [ Right From Monitor] Respiratory Rate Blood Pressure Blood Pressure [Right Arm] O2 Sat by Pulse 99 99 97 Oximetry 02/14/17 02/14/17 02/14/17 05:20 05:25 05:30 Temperature Pulse Rate 95 H 93 H 93 H Pulse Rate [ Right From Monitor] Respiratory Rate Blood Pressure Blood Pressure [Right Arm] O2 Sat by Pulse 98 97 97 Oximetry 02/14/17 02/14/17 02/14/17 05:35 05:40 05:45 Temperature Pulse Rate 92 H 91 H 94 H Pulse Rate [ Right From Monitor] Respiratory Rate Blood Pressure Blood Pressure [Right Arm] O2 Sat by Pulse 97 96 97 Oximetry 02/14/17 02/14/17 02/14/17 05:50 05:55 06:00 Temperature Pulse Rate 95 H 98 H 91 H Pulse Rate [ Right From Monitor] Respiratory Rate Blood Pressure Blood Pressure [Right Arm] O2 Sat by Pulse 97 97 95 Oximetry 02/14/17 02/14/17 02/14/17 06:05 06:10 06:15 Temperature Pulse Rate 92 H 95 H 107 H Pulse Rate [ Right From Monitor] Respiratory Rate Blood Pressure Blood Pressure [Right Arm] O2 Sat by Pulse 95 96 95 Oximetry 02/14/17 02/14/17 02/14/17 06:20 06:25 06:30 Temperature Pulse Rate 94 H 102 H 97 H Pulse Rate [ Right From Monitor] Respiratory Rate Blood Pressure Blood Pressure [Right Arm] O2 Sat by Pulse 97 98 96 Oximetry 02/14/17 02/14/17 02/14/17 06:35 06:40 06:44 Temperature Pulse Rate 92 H 90 97 H Pulse Rate [ Right From Monitor] Respiratory Rate Blood Pressure Blood Pressure [Right Arm] O2 Sat by Pulse 96 96 92 Oximetry 02/14/17 02/14/17 02/14/17 06:45 06:50 06:55 Temperature Pulse Rate 93 H 92 H 88 Pulse Rate [ Right From Monitor] Respiratory Rate Blood Pressure Blood Pressure [Right Arm] O2 Sat by Pulse 96 96 97 Oximetry 02/14/17 02/14/17 02/14/17 07:00 07:05 07:10 Temperature Pulse Rate 85 86 86 Pulse Rate [ Right From Monitor] Respiratory Rate Blood Pressure Blood Pressure [Right Arm] O2 Sat by Pulse 97 97 97 Oximetry 02/14/17 02/14/17 07:15 07:20 Temperature Pulse Rate 85 88 Pulse Rate [ Right From Monitor] Respiratory Rate Blood Pressure Blood Pressure [Right Arm] O2 Sat by Pulse 97 97 Oximetry - Exam Cardiovascular: Regular rate Lungs: Clear to auscultation Abdomen: Present: normal appearance, soft Uterus: Present: normal FHR: auscultation normal - Labs Labs: Abnormal Labs 02/13/17 02/13/17 02/14/17 19:58 20:04 04:00 Hgb 9.9 L Hct 29.9 L MCV 77 L MCH 25 L RDW 15.7 H Lymph % (Auto) 12.1 L [place] % (Auto) 12.5 H Lymph # 0.9 L [place] # 0.9 H Seg Neutrophils % 75.0 H Sodium 135 L Potassium 3.5 L Carbon Dioxide 17 L BUN 4 L Creatinine 0.3 L Calcium 8.2 L Magnesium 4.6 H ALT 6 L Albumin 3.4 L Laboratory Results - last 24 hr 02/13/17 02/13/17 02/13/17 19:58 20:00 20:04 WBC 7.4 RBC 3.91 Hgb 9.9 L Hct 29.9 L MCV 77 L MCH 25 L MCHC 33 RDW 15.7 H Plt Count 244 Lymph % (Auto) 12.1 L [place] % (Auto) 12.5 H Eos % (Auto) 0.1 Baso % (Auto) 0.3 Lymph # 0.9 L [place] # 0.9 H Eos # 0.0 Baso # 0.0 Seg Neutrophils % 75.0 H Seg Neutrophils # 5.5 Sodium 135 L Potassium 3.5 L Chloride 103.1 Carbon Dioxide 17 L Anion Gap 18 BUN 4 L Creatinine 0.3 L Estimated GFR > 60 BUN/Creatinine Ratio 13.33 Glucose 71 Calcium 8.2 L Magnesium Total Bilirubin 0.2 AST 12 ALT 6 L Alkaline Phosphatase 62 Total Protein 7.1 Albumin 3.4 L Albumin/Globulin Ratio 0.9 Urine Color Yellow Urine Turbidity Clear Urine pH 6.0 Ur Specific [place] 1.019 Urine Protein <15 mg/dl Urine Glucose (UA) Neg Urine Ketones 80 Urine Blood Neg Urine Nitrite Neg Urine Bilirubin Neg Urine Urobilinogen < 2.0 Ur Leukocyte Esterase Neg Urine WBC (Auto) < 1.0 Urine RBC (Auto) < 1.0 U Epithel Cells (Auto) < 1.0 Urine Mucus 2+ 02/14/17 04:00 WBC RBC Hgb Hct MCV MCH MCHC RDW Plt Count Lymph % (Auto) [place] % (Auto) Eos % (Auto) Baso % (Auto) Lymph # [place] # Eos # Baso # Seg Neutrophils % Seg Neutrophils # Sodium Potassium Chloride Carbon Dioxide Anion Gap BUN Creatinine Estimated GFR BUN/Creatinine Ratio Glucose Calcium Magnesium 4.6 H Total Bilirubin AST ALT Alkaline Phosphatase Total Protein Albumin Albumin/Globulin Ratio Urine Color Urine Turbidity Urine pH Ur Specific [place] Urine Protein Urine Glucose (UA) Urine Ketones Urine Blood Urine Nitrite Urine Bilirubin Urine Urobilinogen Ur Leukocyte Esterase Urine WBC (Auto) Urine RBC (Auto) U Epithel Cells (Auto) Urine Mucus
[2017-02-14] MEDS ORDERED: MAGNESIUM SULFATE 40GM/1000ML 40 GM/1,000 ML BAG IV SCH (09:30)
[2017-02-14] MEDS: PRENATAL VITAMIN PO SCH (09:44)
[2017-02-14] MEDS: KEPPRA 750 MG in D5W 100 ML IV SCH ×2 (09:44→22:10)
--- NOTE | 2017-02-14 13:57 | Progress Note ---
Assessment and Plan Assessment and plan: 1. Seizure disorder Admitted for multiple seizures most likely secondary to inability to take her antiepileptics due to hyperemesis gravidarum Switched to Keppra IV; receiving antiemetics Neurology also consulted, evaluation pending 2. Second trimester with hyperemesis gravidarum Management per OB History Interval history: feeling better, but still nauseated, not throwing up up if receives antiemetics scheduled Hospitalist Physical - Constitutional Vitals: Temp Pulse Resp BP Pulse Ox 98.4 F 111 H 18 106/53 90 02/14/17 12:34 02/14/17 13:47 02/14/17 08:29 02/14/17 13:09 02/14/17 13:47 General appearance: Present: no acute distress - EENT Eyes: Present: PERRL, EOM intact. Absent: scleral icterus, conjunctival injection - Neck Neck: Present: supple, normal ROM. Absent: masses or JVD - Respiratory Respiratory effort: normal Respiratory: bilateral: CTA, negative: rhonchi, wheezing - Cardiovascular Rhythm: regular Heart Sounds: Present: S1 & S2. Absent: systolic murmur - Extremities Extremities: no ischemia - Abdominal General gastrointestinal: soft, non-tender, non-distended, normal bowel sounds - Integumentary Integumentary: Present: clear, warm, dry. Absent: jaundice - Psychiatric Psychiatric: cooperative - Neurologic Neurologic: CNII-XII intact, no focal deficits Results - Labs CBC & Chem 7: 02/13/17 20:04 02/13/17 19:58 Labs: Laboratory Last Values WBC 7.4 K/mm3 (4.5-11.0) 02/13/17 20:04 RBC 3.91 M/mm3 (3.65-5.03) 02/13/17 20:04 Hgb 9.9 gm/dl (10.1-14.3) L 02/13/17 20:04 Hct 29.9 % (30.3-42.9) L 02/13/17 20:04 MCV 77 fl (79-97) L 02/13/17 20:04 MCH 25 pg (28-32) L 02/13/17 20:04 MCHC 33 % (30-34) 02/13/17 20:04 RDW 15.7 % (13.2-15.2) H 02/13/17 20:04 Plt Count 244 K/mm3 (140-440) 02/13/17 20:04 Lymph % (Auto) 12.1 % (13.4-35.0) L 02/13/17 20:04 [place] % (Auto) 12.5 % (0.0-7.3) H 02/13/17 20:04 Eos % (Auto) 0.1 % (0.0-4.3) 02/13/17 20:04 Baso % (Auto) 0.3 % (0.0-1.8) 02/13/17 20:04 Lymph # 0.9 K/mm3 (1.2-5.4) L 02/13/17 20:04 [place] # 0.9 K/mm3 (0.0-0.8) H 02/13/17 20:04 Eos # 0.0 K/mm3 (0.0-0.4) 02/13/17 20:04 Baso # 0.0 K/mm3 (0.0-0.1) 02/13/17 20:04 Seg Neutrophils % 75.0 % (40.0-70.0) H 02/13/17 20:04 Seg Neutrophils # 5.5 K/mm3 (1.8-7.7) 02/13/17 20:04 Sodium 135 mmol/L (137-145) L 02/13/17 19:58 Potassium 3.5 mmol/L (3.6-5.0) L 02/13/17 19:58 Chloride 103.1 mmol/L (98-107) 02/13/17 19:58 Carbon Dioxide 17 mmol/L (22-30) L 02/13/17 19:58 Anion Gap 18 mmol/L 02/13/17 19:58 BUN 4 mg/dL (7-17) L 02/13/17 19:58 Creatinine 0.3 mg/dL (0.7-1.2) L 02/13/17 19:58 Estimated GFR > 60 ml/min 02/13/17 19:58 BUN/Creatinine Ratio 13.33 % 02/13/17 19:58 Glucose 71 mg/dL (65-100) 02/13/17 19:58 Calcium 8.2 mg/dL (8.4-10.2) L 02/13/17 19:58 Magnesium 4.6 mg/dL (1.7-2.3) H 02/14/17 04:00 Total Bilirubin 0.2 mg/dL (0.1-1.2) 02/13/17 19:58 AST 12 units/L (5-40) 02/13/17 19:58 ALT 6 units/L (7-56) L 02/13/17 19:58 Alkaline Phosphatase 62 units/L (35-129) 02/13/17 19:58 Total Protein 7.1 g/dL (6.3-8.2) 02/13/17 19:58 Albumin 3.4 g/dL (3.9-5) L 02/13/17 19:58 Albumin/Globulin Ratio 0.9 % 02/13/17 19:58 Urine Color Yellow (Yellow) 02/13/17 20:00 Urine Turbidity Clear (Clear) 02/13/17 20:00 Urine pH 6.0 (5.0-7.0) 02/13/17 20:00 Ur Specific [place] 1.019 (1.003-1.030) 02/13/17 20:00 Urine Protein <15 mg/dl mg/dL (Negative) 02/13/17 20:00 Urine Glucose (UA) Neg mg/dL (Negative) 02/13/17 20:00 Urine Ketones 80 mg/dL (Negative) 02/13/17 20:00 Urine Blood Neg (Negative) 02/13/17 20:00 Urine Nitrite Neg (Negative) 02/13/17 20:00 Urine Bilirubin Neg (Negative) 02/13/17 20:00 Urine Urobilinogen < 2.0 mg/dL (<2.0) 02/13/17 20:00 Ur Leukocyte Esterase Neg (Negative) 02/13/17 20:00 Urine WBC (Auto) < 1.0 /HPF (0.0-6.0) 02/13/17 20:00 Urine RBC (Auto) < 1.0 /HPF (0.0-6.0) 02/13/17 20:00 U Epithel Cells (Auto) < 1.0 /HPF (0-13.0) 02/13/17 20:00 Urine Mucus 2+ /HPF 02/13/17 20:00
--- NOTE | 2017-02-14 16:08 | Ultrasound Report ---
FINAL REPORT PROCEDURE: US OB FOLLOW UP TECHNIQUE: Transabdominal ultrasonic imaging of the gravid pelvis was performed. HISTORY: seizures COMPARISON: Ultrasound Ob greater than 14 weeks 02/02/2017 FINDINGS: There is a single live intrauterine gestation in breech presentation. heart rate of 155 beats per minute was noted. The cervix is 2.7 centimeters in length, closed. NIKKI is 15.7 centimeters. The placenta is posterior free of the os without abruption. Normal-appearing views of the head, 4 chambered heart, cord insertion, limited views of the spine, stomach, and limited views of the extremities was seen. BPD is 5.2 centimeters suggesting a gestational age of 22 weeks 0 days Head circumference is 13.9 centimeters suggesting a gestational age of 19 weeks 4 days Abdominal circumference is 17.4 centimeters suggesting a gestational age of 22 weeks 3 days Femur length is 3.9 centimeters suggesting a gestational age of 22 weeks 5 days Estimated weight is 485 grams Estimated date of confinement is 06/21/2017 IMPRESSION: Single live intrauterine gestation in breech presentation. Measured gestational age of 21 weeks 5 days. Short cervix without funneling. Close follow-up is recommended.
[2017-02-14] MEDS: ROBITUSSIN DM PO PRN (19:20)
[2017-02-14] MEDS: PERCOCET 5/325 PO PRN (19:24)
[2017-02-15] MEDS: LACTATED RINGERS 1,000 ML IV SCH ×2 (01:34→22:00)
--- NOTE | 2017-02-15 09:30 | Consultation ---
History of Present Illness Consult date: 02/15/17 Requesting physician: HOWARD CRABTREE History of present illness: Patient admitted with what appears to be recurrent seizures. I discussed the issues regarding seizures and her current . We await consultation from Neurology service. Full consult to follow. Agree with Keppra as written at this point. Call [facility] with any questions. Past History Past Medical History: other (seizures) Past Surgical History: no surgical history - Obstetrical History : 4 Medications and Allergies Allergies Allergy/AdvReac Type Severity Reaction Status Date / Time [place] And Derivatives Allergy Unknown Verified 02/13/17 18:02 Home Medications Medication Instructions Recorded Confirmed Last Taken Type levETIRAcetam [Keppra TAB] 750 mg PO BID #60 tablet 06/06/16 02/13/17 02/13/17 09:00 Rx 1 Pnv with Ca,No.72/Iron/FA [Pnv 1 each PO DAILY 02/02/17 02/13/17 02/13/17 09:00 History Plus Multivit Tab] 1 Nitrofurantoin [place]/M-Cryst 100 mg PO Q12HR #20 capsule 02/06/17 02/13/17 09:00 Rx [Macrobid CAP] 1 Active Meds: Active Medications Acetaminophen (Tylenol) 650 mg PO Q4H PRN PRN Reason: Pain MILD(1-3)/Fever >100.5/TORRES Last Admin: 02/14/17 08:39 Dose: 650 mg Diphenhydramine HCl (Benadryl) 25 mg PO Q6H PRN PRN Reason: Itching Docusate Sodium (Colace) 100 mg PO Q12H PRN PRN Reason: Constipation Fluconazole (Diflucan) 100 mg PO QDAY ANKUR Guaifenesin (Robitussin Dm) 10 ml PO Q4H PRN PRN Reason: Cough Last Admin: 02/14/17 19:20 Dose: 10 ml Lactated Ringer's (Lactated Ringers) 1,000 mls @ 125 mls/hr IV DIRECT ANKUR Last Admin: 02/15/17 01:34 Dose: 125 mls/hr Levetiracetam 750 mg/ Dextrose 107.5 mls @ 400 mls/hr IV Q12HR ANKUR Last Admin: 02/14/17 22:10 Dose: 400 mls/hr Magnesium Sulfate (Magnesium Sulfate 40gm/1000ml) 40 gm in 1,000 mls @ 25 mls/ hr IV DIRECT ANKUR PRN Reason: 1 GM/HR Last Admin: 02/15/17 01:34 Dose: 1 gm/hr, 25 mls/hr Multivitamins/Iron/Calcium ( Vitamin) 1 each PO QDAY ANKUR Last Admin: 02/14/17 09:44 Dose: 1 each Ondansetron HCl (Zofran) 4 mg IV Q6H PRN PRN Reason: Nausea And Vomiting Last Admin: 02/14/17 23:59 Dose: 4 mg Oxycodone/Acetaminophen (Percocet 5/325) 2 tab PO Q6H PRN PRN Reason: Pain, Moderate (4-6) Last Admin: 02/14/17 19:24 Dose: 2 tab - Vital Signs Vital signs: Vital Signs Pulse Pulse Ox 115 H 100 02/13/17 17:48 02/13/17 17:48 Temp Pulse Resp BP Pulse Ox 98.2 F 94 H 18 106/59 99 02/15/17 09:23 02/15/17 09:23 02/15/17 09:23 02/15/17 09:23 02/15/17 09:23 Results Result Diagrams: 02/13/17 20:04 02/13/17 19:58 Abnormal lab results 02/14/17 02/14/17 Range/Units 18:00 20:45 Magnesium 4.2 H 4.2 H (1.7-2.3) mg/dL All other labs normal. Assessment and Plan Full consult to follow. Agree with Wayne as written at this point. Call [facility] with any questions.
[2017-02-15] MEDS: PRENATAL VITAMIN PO SCH (09:37)
[2017-02-15] MEDS: ZOFRAN IV PRN ×2 (09:43→19:42)
--- NOTE | 2017-02-15 09:53 | Progress Note ---
Assessment and Plan - Patient Problems (1) 22 weeks gestation of Onset Date: 02/13/17 Current Visit: Yes Status: Resolved (2) Seizure disorder during in second trimester Onset Date: 02/13/17 Current Visit: Yes Status: Acute (3) 23 weeks gestation of Onset Date: 02/15/17 Current Visit: Yes Status: Acute Plan to address problem: A: IUP @ 23 0/7 weeks Seizure disorder in - improved. No care this P: Continue present management Awaiting Neurology consultation Will obtain Keppra level. Subjective - Subjective Date of service: 02/15/17 Principal diagnosis: IUP @ 23 0/7 weeks; Seizure disorder Interval history: Pt is a 21yo BF EDC 06/14/17: EGA 23 0/7 weeks, currently on Keppra 750mg IV BID and feeling better. No further vomiting with IV Zofran. No further seizures since admission. Patient reports: movement normal, no new complaints, no loss of fluid, no vaginal bleeding, no contractions Objective - Vital Signs Vital Signs: Vital Signs - 12hr 02/14/17 02/14/17 02/14/17 21:55 22:00 22:05 Temperature Pulse Rate 85 87 89 Pulse Rate [ Right From Monitor] Respiratory Rate Blood Pressure Blood Pressure [Right Arm] O2 Sat by Pulse 97 97 98 Oximetry 02/14/17 02/14/17 02/14/17 22:10 22:15 22:20 Temperature Pulse Rate 88 88 88 Pulse Rate [ Right From Monitor] Respiratory Rate Blood Pressure 93/54 Blood Pressure [Right Arm] O2 Sat by Pulse 98 97 98 Oximetry 02/14/17 02/14/17 02/14/17 22:25 22:30 22:35 Temperature Pulse Rate 85 86 86 Pulse Rate [ Right From Monitor] Respiratory Rate Blood Pressure Blood Pressure [Right Arm] O2 Sat by Pulse 97 97 99 Oximetry 02/14/17 02/14/17 02/14/17 22:39 22:40 22:45 Temperature Pulse Rate 86 91 H 83 Pulse Rate [ Right From Monitor] Respiratory Rate Blood Pressure 97/55 Blood Pressure [Right Arm] O2 Sat by Pulse 97 97 Oximetry 02/14/17 02/14/17 02/14/17 22:50 22:55 23:00 Temperature Pulse Rate 83 84 88 Pulse Rate [ Right From Monitor] Respiratory Rate Blood Pressure Blood Pressure [Right Arm] O2 Sat by Pulse 97 98 97 Oximetry 02/14/17 02/14/17 02/14/17 23:05 23:09 23:10 Temperature Pulse Rate 82 86 81 Pulse Rate [ Right From Monitor] Respiratory Rate Blood Pressure 93/55 Blood Pressure [Right Arm] O2 Sat by Pulse 98 97 Oximetry 02/14/17 02/14/17 02/14/17 23:15 23:20 23:25 Temperature Pulse Rate 85 84 94 H Pulse Rate [ Right From Monitor] Respiratory Rate Blood Pressure Blood Pressure [Right Arm] O2 Sat by Pulse 97 97 98 Oximetry 02/14/17 02/14/17 02/14/17 23:30 23:35 23:39 Temperature Pulse Rate 97 H 83 86 Pulse Rate [ Right From Monitor] Respiratory Rate Blood Pressure 87/52 Blood Pressure [Right Arm] O2 Sat by Pulse 100 97 Oximetry 02/14/17 02/14/17 02/14/17 23:40 23:45 23:50 Temperature Pulse Rate 85 83 82 Pulse Rate [ Right From Monitor] Respiratory Rate Blood Pressure Blood Pressure [Right Arm] O2 Sat by Pulse 97 96 96 Oximetry 02/14/17 02/15/17 02/15/17 23:55 00:00 00:05 Temperature 97.4 F L Pulse Rate 81 86 81 Pulse Rate [ Right From Monitor] Respiratory 18 Rate Blood Pressure Blood Pressure [Right Arm] O2 Sat by Pulse 96 96 97 Oximetry 02/15/17 02/15/17 02/15/17 00:09 00:10 00:15 Temperature Pulse Rate 82 80 80 Pulse Rate [ Right From Monitor] Respiratory Rate Blood Pressure 84/45 Blood Pressure [Right Arm] O2 Sat by Pulse 97 97 Oximetry 02/15/17 02/15/17 02/15/17 00:20 00:25 00:30 Temperature Pulse Rate 80 84 87 Pulse Rate [ Right From Monitor] Respiratory Rate Blood Pressure Blood Pressure [Right Arm] O2 Sat by Pulse 96 96 97 Oximetry 02/15/17 02/15/17 02/15/17 00:35 00:39 00:40 Temperature Pulse Rate 87 85 87 Pulse Rate [ Right From Monitor] Respiratory Rate Blood Pressure 79/42 Blood Pressure [Right Arm] O2 Sat by Pulse 96 97 Oximetry 02/15/17 02/15/17 02/15/17 00:45 00:50 00:55 Temperature Pulse Rate 84 85 85 Pulse Rate [ Right From Monitor] Respiratory Rate Blood Pressure Blood Pressure [Right Arm] O2 Sat by Pulse 97 96 96 Oximetry 02/15/17 02/15/17 02/15/17 01:00 01:05 01:09 Temperature Pulse Rate 85 82 82 Pulse Rate [ Right From Monitor] Respiratory Rate Blood Pressure 92/55 Blood Pressure [Right Arm] O2 Sat by Pulse 96 95 Oximetry 02/15/17 02/15/17 02/15/17 01:10 01:15 01:20 Temperature Pulse Rate 83 82 84 Pulse Rate [ Right From Monitor] Respiratory Rate Blood Pressure Blood Pressure [Right Arm] O2 Sat by Pulse 96 95 97 Oximetry 02/15/17 02/15/17 02/15/17 01:25 01:30 01:35 Temperature Pulse Rate 81 81 80 Pulse Rate [ Right From Monitor] Respiratory Rate Blood Pressure Blood Pressure [Right Arm] O2 Sat by Pulse 98 98 96 Oximetry 02/15/17 02/15/17 02/15/17 01:39 01:40 01:45 Temperature Pulse Rate 81 79 76 Pulse Rate [ Right From Monitor] Respiratory Rate Blood Pressure 93/55 Blood Pressure [Right Arm] O2 Sat by Pulse 97 97 Oximetry 02/15/17 02/15/17 02/15/17 01:50 01:55 02:00 Temperature Pulse Rate 78 80 80 Pulse Rate [ Right From Monitor] Respiratory Rate Blood Pressure Blood Pressure [Right Arm] O2 Sat by Pulse 97 96 96 Oximetry 02/15/17 02/15/17 02/15/17 02:05 02:09 02:10 Temperature Pulse Rate 79 77 78 Pulse Rate [ Right From Monitor] Respiratory Rate Blood Pressure 92/53 Blood Pressure [Right Arm] O2 Sat by Pulse 96 96 Oximetry 02/15/17 02/15/17 02/15/17 02:15 02:20 02:24 Temperature Pulse Rate 82 98 H 82 Pulse Rate [ Right From Monitor] Respiratory Rate Blood Pressure Blood Pressure [Right Arm] O2 Sat by Pulse 96 98 94 Oximetry 02/15/17 02/15/17 02/15/17 02:25 02:30 02:40 Temperature Pulse Rate 78 32 L 71 Pulse Rate [ Right From Monitor] Respiratory Rate Blood Pressure Blood Pressure [Right Arm] O2 Sat by Pulse 100 98 100 Oximetry 02/15/17 02/15/1717 02:45 02:50 02:55 Temperature Pulse Rate 80 77 80 Pulse Rate [ Right From Monitor] Respiratory Rate Blood Pressure Blood Pressure [Right Arm] O2 Sat by Pulse 100 100 100 Oximetry 02/15/17 02/15/17 02/15/17 03:00 03:01 03:05 Temperature Pulse Rate 87 56 L 79 Pulse Rate [ Right From Monitor] Respiratory Rate Blood Pressure Blood Pressure [Right Arm] O2 Sat by Pulse 100 49 L 97 Oximetry 02/15/17 02/15/17 02/15/17 03:10 03:15 03:20 Temperature Pulse Rate 86 84 82 Pulse Rate [ Right From Monitor] Respiratory Rate Blood Pressure Blood Pressure [Right Arm] O2 Sat by Pulse 97 97 97 Oximetry 02/15/17 02/15/17 02/15/17 03:25 03:30 03:35 Temperature Pulse Rate 86 85 85 Pulse Rate [ Right From Monitor] Respiratory Rate Blood Pressure Blood Pressure [Right Arm] O2 Sat by Pulse 97 96 97 Oximetry 02/15/17 02/15/17 02/15/17 03:40 03:45 03:50 Temperature Pulse Rate 85 89 86 Pulse Rate [ Right From Monitor] Respiratory Rate Blood Pressure Blood Pressure [Right Arm] O2 Sat by Pulse 96 97 96 Oximetry 02/15/17 02/15/17 02/15/17 03:55 03:58 04:00 Temperature Pulse Rate 83 87 79 Pulse Rate [ Right From Monitor] Respiratory Rate Blood Pressure Blood Pressure [Right Arm] O2 Sat by Pulse 96 94 98 Oximetry 02/15/17 02/15/17 02/15/17 04:05 04:10 04:15 Temperature Pulse Rate 82 82 79 Pulse Rate [ Right From Monitor] Respiratory Rate Blood Pressure Blood Pressure [Right Arm] O2 Sat by Pulse 98 98 98 Oximetry 02/15/17 02/15/17 02/15/17 04:20 04:25 04:30 Temperature Pulse Rate 81 81 80 Pulse Rate [ Right From Monitor] Respiratory Rate Blood Pressure Blood Pressure [Right Arm] O2 Sat by Pulse 97 96 95 Oximetry 02/15/17 02/15/17 02/15/17 04:35 04:40 04:45 Temperature Pulse Rate 81 81 83 Pulse Rate [ Right From Monitor] Respiratory Rate Blood Pressure Blood Pressure [Right Arm] O2 Sat by Pulse 95 95 95 Oximetry 02/15/17 02/15/17 02/15/17 04:50 04:55 05:00 Temperature Pulse Rate 81 81 82 Pulse Rate [ Right From Monitor] Respiratory Rate Blood Pressure Blood Pressure [Right Arm] O2 Sat by Pulse 95 95 96 Oximetry 02/15/17 02/15/17 02/15/17 05:05 05:10 05:15 Temperature Pulse Rate 82 86 83 Pulse Rate [ Right From Monitor] Respiratory Rate Blood Pressure Blood Pressure [Right Arm] O2 Sat by Pulse 96 96 97 Oximetry 02/15/17 02/15/17 02/15/17 05:20 05:25 05:30 Temperature Pulse Rate 89 88 85 Pulse Rate [ Right From Monitor] Respiratory Rate Blood Pressure Blood Pressure [Right Arm] O2 Sat by Pulse 98 98 97 Oximetry 02/15/17 02/15/17 02/15/17 05:35 05:40 05:45 Temperature Pulse Rate 86 84 85 Pulse Rate [ Right From Monitor] Respiratory Rate Blood Pressure Blood Pressure [Right Arm] O2 Sat by Pulse 96 96 96 Oximetry 02/15/17 02/15/17 02/15/17 05:50 05:55 06:00 Temperature Pulse Rate 82 91 H 82 Pulse Rate [ Right From Monitor] Respiratory Rate Blood Pressure Blood Pressure [Right Arm] O2 Sat by Pulse 97 98 97 Oximetry 02/15/17 02/15/17 02/15/17 06:05 06:10 06:15 Temperature Pulse Rate 86 85 83 Pulse Rate [ Right From Monitor] Respiratory Rate Blood Pressure Blood Pressure [Right Arm] O2 Sat by Pulse 97 96 96 Oximetry 02/15/17 02/15/17 02/15/17 06:20 06:25 06:30 Temperature Pulse Rate 85 90 94 H Pulse Rate [ Right From Monitor] Respiratory Rate Blood Pressure Blood Pressure [Right Arm] O2 Sat by Pulse 95 99 98 Oximetry 02/15/17 02/15/17 02/15/17 06:32 06:34 06:35 Temperature Pulse Rate 55 L 98 H 103 H Pulse Rate [ Right From Monitor] Respiratory Rate Blood Pressure 97/46 Blood Pressure [Right Arm] O2 Sat by Pulse 90 100 Oximetry 02/15/17 02/15/17 02/15/17 06:39 06:40 06:45 Temperature Pulse Rate 94 H 92 H 93 H Pulse Rate [ Right From Monitor] Respiratory Rate Blood Pressure 79/47 Blood Pressure [Right Arm] O2 Sat by Pulse 92 100 100 Oximetry 02/15/17 02/15/17 02/15/17 06:50 06:55 07:00 Temperature Pulse Rate 92 H 94 H 93 H Pulse Rate [ Right From Monitor] Respiratory Rate Blood Pressure Blood Pressure [Right Arm] O2 Sat by Pulse 100 99 98 Oximetry 02/15/17 02/15/17 02/15/17 07:05 07:10 07:15 Temperature Pulse Rate 91 H 97 H 100 H Pulse Rate [ Right From Monitor] Respiratory Rate Blood Pressure 87/48 85/48 Blood Pressure [Right Arm] O2 Sat by Pulse 98 98 98 Oximetry 02/15/17 02/15/17 02/15/17 07:19 07:20 07:25 Temperature Pulse Rate 108 H 108 H 98 H Pulse Rate [ Right From Monitor] Respiratory Rate Blood Pressure 106/57 Blood Pressure [Right Arm] O2 Sat by Pulse 99 99 Oximetry 02/15/17 02/15/17 02/15/17 07:30 07:35 07:39 Temperature Pulse Rate 98 H 100 H 95 H Pulse Rate [ Right From Monitor] Respiratory Rate Blood Pressure 88/48 Blood Pressure [Right Arm] O2 Sat by Pulse 99 98 Oximetry 02/15/17 02/15/17 02/15/17 07:40 07:45 07:50 Temperature Pulse Rate 106 H 93 H 96 H Pulse Rate [ Right From Monitor] Respiratory Rate Blood Pressure Blood Pressure [Right Arm] O2 Sat by Pulse 99 100 100 Oximetry 02/15/17 02/15/17 02/15/17 07:55 08:00 08:05 Temperature Pulse Rate 95 H 98 H 94 H Pulse Rate [ Right From Monitor] Respiratory Rate Blood Pressure Blood Pressure [Right Arm] O2 Sat by Pulse 97 98 97 Oximetry 02/15/17 02/15/17 02/15/17 08:09 08:10 08:13 Temperature Pulse Rate 95 H 107 H Pulse Rate [ Right From Monitor] Respiratory Rate Blood Pressure 89/53 Blood Pressure [Right Arm] O2 Sat by Pulse 98 82 L Oximetry 02/15/17 02/15/17 02/15/17 08:15 08:20 08:25 Temperature Pulse Rate 94 H 96 H 102 H Pulse Rate [ Right From Monitor] Respiratory Rate Blood Pressure Blood Pressure [Right Arm] O2 Sat by Pulse 99 99 98 Oximetry 02/15/17 02/15/17 02/15/17 08:30 08:31 08:35 Temperature Pulse Rate 99 H 99 H 93 H Pulse Rate [ Right From Monitor] Respiratory Rate Blood Pressure Blood Pressure [Right Arm] O2 Sat by Pulse 97 86 98 Oximetry 02/15/17 02/15/17 02/15/17 08:39 08:40 08:45 Temperature Pulse Rate 95 H 90 91 H Pulse Rate [ Right From Monitor] Respiratory Rate Blood Pressure 85/47 Blood Pressure [Right Arm] O2 Sat by Pulse 86 98 Oximetry 02/15/17 02/15/17 02/15/17 08:50 08:55 09:00 Temperature Pulse Rate 89 95 H 94 H Pulse Rate [ Right From Monitor] Respiratory Rate Blood Pressure Blood Pressure [Right Arm] O2 Sat by Pulse 97 99 99 Oximetry 02/15/17 02/15/17 02/15/17 09:05 09:09 09:10 Temperature Pulse Rate 99 H 99 H 96 H Pulse Rate [ Right From Monitor] Respiratory Rate Blood Pressure 104/58 Blood Pressure [Right Arm] O2 Sat by Pulse 98 98 Oximetry 02/15/17 02/15/17 02/15/17 09:15 09:20 09:22 Temperature Pulse Rate 98 H 94 H 93 H Pulse Rate [ Right From Monitor] Respiratory Rate Blood Pressure 106/59 Blood Pressure [Right Arm] O2 Sat by Pulse 98 99 Oximetry 02/15/17 02/15/17 02/15/17 09:23 09:25 09:30 Temperature 98.2 F Pulse Rate 91 H 101 H Pulse Rate [ 94 H Right From Monitor] Respiratory 18 Rate Blood Pressure Blood Pressure 106/59 [Right Arm] O2 Sat by Pulse 99 99 99 Oximetry 02/15/17 02/15/17 02/15/17 09:35 09:40 09:45 Temperature Pulse Rate 99 H 93 H 88 Pulse Rate [ Right From Monitor] Respiratory Rate Blood Pressure Blood Pressure [Right Arm] O2 Sat by Pulse 99 96 99 Oximetry - Exam Cardiovascular: Regular rate Lungs: Clear to auscultation Abdomen: Present: normal appearance, soft Uterus: Present: normal FHR: auscultation normal Uterine Contraction Pattern: Absent - Labs Labs: Abnormal Labs 02/13/17 02/13/17 02/14/17 19:58 20:04 04:00 Hgb 9.9 L Hct 29.9 L MCV 77 L MCH 25 L RDW 15.7 H Lymph % (Auto) 12.1 L Green % (Auto) 12.5 H Lymph # 0.9 L Green # 0.9 H Seg Neutrophils % 75.0 H Sodium 135 L Potassium 3.5 L Carbon Dioxide 17 L BUN 4 L Creatinine 0.3 L Calcium 8.2 L Magnesium 4.6 H ALT 6 L Albumin 3.4 L 02/14/17 02/14/17 18:00 20:45 Hgb Hct MCV MCH RDW Lymph % (Auto) Green % (Auto) Lymph # Green # Seg Neutrophils % Sodium Potassium Carbon Dioxide BUN Creatinine Calcium Magnesium 4.2 H 4.2 H ALT Albumin Laboratory Results - last 24 hr 02/14/17 02/14/17 18:00 20:45 Magnesium 4.2 H 4.2 H - Results US- obstetric: report reviewed ([place], Breech, NIKKI 15.1 FHT 155, Cervical length 2.69; Gestational age 21 5/7 weeks)
[2017-02-15] MEDS: KEPPRA 750 MG in D5W 100 ML IV SCH ×2 (10:07→21:57)
[2017-02-15] MEDS: DIFLUCAN PO SCH (10:08)
--- NOTE | 2017-02-15 11:37 | Progress Note ---
Assessment and Plan Assessment and plan: 1. Seizure disorder Admitted for multiple seizures most likely secondary to inability to take her antiepileptics due to hyperemesis gravidarum On Keppra IV and no further seizures Neurology also consulted, evaluation by Dr. Hallman still pending; please consider consulting Dr. Boswell, neurologist on service this week 2. Second trimester with hyperemesis gravidarum Management per OB History Interval history: improving, no vomiting in the last 24 hours, no seizures since admitted Hospitalist Physical - Constitutional Vitals: Temp Pulse Resp BP Pulse Ox 98.2 F 99 H 18 92/54 98 02/15/17 09:23 02/15/17 11:24 02/15/17 09:23 02/15/17 11:23 02/15/17 11:24 General appearance: Present: no acute distress - EENT Eyes: Present: PERRL, EOM intact. Absent: scleral icterus, conjunctival injection - Neck Neck: Present: supple, normal ROM. Absent: masses or JVD - Respiratory Respiratory effort: normal Respiratory: bilateral: CTA, negative: rhonchi, wheezing - Cardiovascular Rhythm: regular Heart Sounds: Present: S1 & S2. Absent: systolic murmur - Extremities Extremities: no ischemia - Abdominal General gastrointestinal: soft, non-tender, non-distended, normal bowel sounds - Psychiatric Psychiatric: cooperative - Neurologic Neurologic: CNII-XII intact, no focal deficits Results - Labs CBC & Chem 7: 02/13/17 20:04 02/13/17 19:58 Labs: Laboratory Last Values WBC 7.4 K/mm3 (4.5-11.0) 02/13/17 20:04 RBC 3.91 M/mm3 (3.65-5.03) 02/13/17 20:04 Hgb 9.9 gm/dl (10.1-14.3) L 02/13/17 20:04 Hct 29.9 % (30.3-42.9) L 02/13/17 20:04 MCV 77 fl (79-97) L 02/13/17 20:04 MCH 25 pg (28-32) L 02/13/17 20:04 MCHC 33 % (30-34) 02/13/17 20:04 RDW 15.7 % (13.2-15.2) H 02/13/17 20:04 Plt Count 244 K/mm3 (140-440) 02/13/17 20:04 Lymph % (Auto) 12.1 % (13.4-35.0) L 02/13/17 20:04 [place] % (Auto) 12.5 % (0.0-7.3) H 02/13/17 20:04 Eos % (Auto) 0.1 % (0.0-4.3) 02/13/17 20:04 Baso % (Auto) 0.3 % (0.0-1.8) 02/13/17 20:04 Lymph # 0.9 K/mm3 (1.2-5.4) L 02/13/17 20:04 [place] # 0.9 K/mm3 (0.0-0.8) H 02/13/17 20:04 Eos # 0.0 K/mm3 (0.0-0.4) 02/13/17 20:04 Baso # 0.0 K/mm3 (0.0-0.1) 02/13/17 20:04 Seg Neutrophils % 75.0 % (40.0-70.0) H 02/13/17 20:04 Seg Neutrophils # 5.5 K/mm3 (1.8-7.7) 02/13/17 20:04 Sodium 135 mmol/L (137-145) L 02/13/17 19:58 Potassium 3.5 mmol/L (3.6-5.0) L 02/13/17 19:58 Chloride 103.1 mmol/L (98-107) 02/13/17 19:58 Carbon Dioxide 17 mmol/L (22-30) L 02/13/17 19:58 Anion Gap 18 mmol/L 02/13/17 19:58 BUN 4 mg/dL (7-17) L 02/13/17 19:58 Creatinine 0.3 mg/dL (0.7-1.2) L 02/13/17 19:58 Estimated GFR > 60 ml/min 02/13/17 19:58 BUN/Creatinine Ratio 13.33 % 02/13/17 19:58 Glucose 71 mg/dL (65-100) 02/13/17 19:58 Calcium 8.2 mg/dL (8.4-10.2) L 02/13/17 19:58 Magnesium 4.2 mg/dL (1.7-2.3) H 02/14/17 20:45 Total Bilirubin 0.2 mg/dL (0.1-1.2) 02/13/17 19:58 AST 12 units/L (5-40) 02/13/17 19:58 ALT 6 units/L (7-56) L 02/13/17 19:58 Alkaline Phosphatase 62 units/L (35-129) 02/13/17 19:58 Total Protein 7.1 g/dL (6.3-8.2) 02/13/17 19:58 Albumin 3.4 g/dL (3.9-5) L 02/13/17 19:58 Albumin/Globulin Ratio 0.9 % 02/13/17 19:58 Urine Color Yellow (Yellow) 02/13/17 20:00 Urine Turbidity Clear (Clear) 02/13/17 20:00 Urine pH 6.0 (5.0-7.0) 02/13/17 20:00 Ur Specific [place] 1.019 (1.003-1.030) 02/13/17 20:00 Urine Protein <15 mg/dl mg/dL (Negative) 02/13/17 20:00 Urine Glucose (UA) Neg mg/dL (Negative) 02/13/17 20:00 Urine Ketones 80 mg/dL (Negative) 02/13/17 20:00 Urine Blood Neg (Negative) 02/13/17 20:00 Urine Nitrite Neg (Negative) 02/13/17 20:00 Urine Bilirubin Neg (Negative) 02/13/17 20:00 Urine Urobilinogen < 2.0 mg/dL (<2.0) 02/13/17 20:00 Ur Leukocyte Esterase Neg (Negative) 02/13/17 20:00 Urine WBC (Auto) < 1.0 /HPF (0.0-6.0) 02/13/17 20:00 Urine RBC (Auto) < 1.0 /HPF (0.0-6.0) 02/13/17 20:00 U Epithel Cells (Auto) < 1.0 /HPF (0-13.0) 02/13/17 20:00 Urine Mucus 2+ /HPF 02/13/17 20:00
--- NOTE | 2017-02-15 12:01 | Consultation ---
History of Present Illness - Reason for Consult Consult date: 02/15/17 seizure - History of Present Illness dictated full note on the above patient agree with keppra use plan EEG it is ordered Past History Social history: no significant social history, single Medications and Allergies Allergies Allergy/AdvReac Type Severity Reaction Status Date / Time [place] And Derivatives Allergy Unknown Verified 02/13/17 18:02 Home Medications Medication Instructions Recorded Confirmed Last Taken Type levETIRAcetam [Keppra TAB] 750 mg PO BID #60 tablet 06/06/16 02/13/17 02/13/17 09:00 Rx 1 Pnv with Ca,No.72/Iron/FA [Pnv 1 each PO DAILY 02/02/17 02/13/17 02/13/17 09:00 History Plus Multivit Tab] 1 Nitrofurantoin [place]/M-Cryst 100 mg PO Q12HR #20 capsule 02/06/17 02/13/17 09:00 Rx [Macrobid CAP] 1 Active Meds: Active Medications Acetaminophen (Tylenol) 650 mg PO Q4H PRN PRN Reason: Pain MILD(1-3)/Fever >100.5/TORRES Last Admin: 02/14/17 08:39 Dose: 650 mg Diphenhydramine HCl (Benadryl) 25 mg PO Q6H PRN PRN Reason: Itching Docusate Sodium (Colace) 100 mg PO Q12H PRN PRN Reason: Constipation Fluconazole (Diflucan) 100 mg PO QDAY [facility] Last Admin: 02/15/17 10:08 Dose: 100 mg Guaifenesin (Robitussin Dm) 10 ml PO Q4H PRN PRN Reason: Cough Last Admin: 02/14/17 19:20 Dose: 10 ml Lactated Ringer's (Lactated Ringers) 1,000 mls @ 125 mls/hr IV DIRECT [facility] Last Admin: 02/15/17 01:34 Dose: 125 mls/hr Levetiracetam 750 mg/ Dextrose 107.5 mls @ 400 mls/hr IV Q12HR [facility] Last Admin: 02/15/17 10:07 Dose: 400 mls/hr Multivitamins/Iron/Calcium ( Vitamin) 1 each PO QDAY [facility] Last Admin: 02/15/17 09:37 Dose: 1 each Ondansetron HCl (Zofran) 4 mg IV Q6H PRN PRN Reason: Nausea And Vomiting Last Admin: 02/15/17 09:43 Dose: 4 mg Oxycodone/Acetaminophen (Percocet 5/325) 2 tab PO Q6H PRN PRN Reason: Pain, Moderate (4-6) Last Admin: 02/14/17 19:24 Dose: 2 tab Exam - Constitutional Vitals: Temp Pulse Resp BP Pulse Ox 98.2 F 103 H 18 97/50 99 02/15/17 09:23 02/15/17 11:54 02/15/17 09:23 02/15/17 11:53 02/15/17 11:54 Results - Labs CBC & Chem 7: 02/13/17 20:04 02/13/17 19:58 Labs: Abnormal lab results 02/14/17 02/14/17 Range/Units 18:00 20:45 Magnesium 4.2 H 4.2 H (1.7-2.3) mg/dL
[2017-02-15] MEDS: PERCOCET 5/325 PO PRN ×2 (12:11→19:42)
[2017-02-15] MEDS: ROBITUSSIN DM PO PRN (12:15)
--- NOTE | 2017-02-15 15:41 | Consultation ---
History of Present Illness Consult date: 02/15/17 Requesting physician: HOWARD CRABTREE Reason for consult: other (Seizure) History of present illness: As you are likely aware this is a para 3003 is currently at 22.6 weeks and gestation hospitalized due to epileptic seizure disorder. Patient has been counseled during this visit by neurology Please see their reports attached. LAST ULTRASOUND [place] . Posterior placenta. Presentation: Breech. AUA: 21 weeks 5 days. heart rate: 155 beats/minute Amniotic fluid index: 15.7 Cervical length: 2.7 cm without funneling. EFW: 485 gm Past History Past Medical History: other (seizures) Past Surgical History: no surgical history - Obstetrical History : 4 Medications and Allergies Allergies Allergy/AdvReac Type Severity Reaction Status Date / Time [place] And Derivatives Allergy Unknown Verified 02/13/17 18:02 Home Medications Medication Instructions Recorded Confirmed Last Taken Type levETIRAcetam [Keppra TAB] 750 mg PO BID #60 tablet 06/06/16 02/13/17 02/13/17 09:00 Rx 1 Pnv with Ca,No.72/Iron/FA [Pnv 1 each PO DAILY 02/02/17 02/13/17 02/13/17 09:00 History Plus Multivit Tab] 1 Nitrofurantoin [place]/M-Cryst 100 mg PO Q12HR #20 capsule 02/06/17 02/13/17 09:00 Rx [Macrobid CAP] 1 Active Meds: Active Medications Acetaminophen (Tylenol) 650 mg PO Q4H PRN PRN Reason: Pain MILD(1-3)/Fever >100.5/TORRES Last Admin: 02/14/17 08:39 Dose: 650 mg Diphenhydramine HCl (Benadryl) 25 mg PO Q6H PRN PRN Reason: Itching Docusate Sodium (Colace) 100 mg PO Q12H PRN PRN Reason: Constipation Fluconazole (Diflucan) 100 mg PO QDAY [facility] Last Admin: 02/15/17 10:08 Dose: 100 mg Guaifenesin (Robitussin Dm) 10 ml PO Q4H PRN PRN Reason: Cough Last Admin: 02/15/17 12:15 Dose: 10 ml Lactated Ringer's (Lactated Ringers) 1,000 mls @ 125 mls/hr IV DIRECT [facility] [place] Last Admin: 02/15/17 01:34 Dose: 125 mls/hr Levetiracetam 750 mg/ Dextrose 107.5 mls @ 400 mls/hr IV Q12HR [facility] Last Admin: 02/15/17 10:07 Dose: 400 mls/hr Multivitamins/Iron/Calcium ( Vitamin) 1 each PO QDAY [facility] Last Admin: 02/15/17 09:37 Dose: 1 each Ondansetron HCl (Zofran) 4 mg IV Q6H PRN PRN Reason: Nausea And Vomiting Last Admin: 02/15/17 09:43 Dose: 4 mg Oxycodone/Acetaminophen (Percocet 5/325) 2 tab PO Q6H PRN PRN Reason: Pain, Moderate (4-6) Last Admin: 02/15/17 12:11 Dose: 2 tab - Vital Signs Vital signs: Vital Signs Pulse Pulse Ox 115 H 100 02/13/17 17:48 02/13/17 17:48 Temp Pulse Resp BP Pulse Ox 98.2 F 86 18 85/49 91 02/15/17 09:23 02/15/17 15:35 02/15/17 09:23 02/15/17 15:23 02/15/17 15:35 Results Result Diagrams: 02/13/17 20:04 02/13/17 19:58 Abnormal lab results 02/14/17 02/14/17 Range/Units 18:00 20:45 Magnesium 4.2 H 4.2 H (1.7-2.3) mg/dL All other labs normal. Assessment and Plan RECOMMENDATIONS: Seizure disorder Agree with Neurology for EEG and Keppra as well as Keppra level. Hyperemesis gravidarum - management as necessary.
[2017-02-16] MEDS: ZOFRAN IV PRN ×3 (03:39→17:08)
[2017-02-16] MEDS: PERCOCET 5/325 PO PRN ×3 (03:40→20:17)
--- NOTE | 2017-02-16 03:58 | Consultation ---
HISTORY OF PRESENT ILLNESS: This is a 21-year-old black female who is being seen for a second time following a discharge about 14 days ago. The patient was admitted at that point because of hyperemesis and seizures. After going home, she was advised to take liquid Keppra. She could not obtain this medication, instead try taking the Keppra tablets and she would vomit these and was unable to control her vomiting. She states she also ran a fever. She stated the baby was overactive and this contributed to her nausea. By history, she did not have hyperemesis in her other pregnancies. She is not exposed to any other factors that is known to precipitate her hyperemesis. PAST MEDICAL HISTORY: Significant for seizures since childhood. 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 PHYSICAL EXAMINATION: VITAL SIGNS: On my examination of the patient, she is alert, responsive. NECK: Supple. NEUROLOGIC: Speech is clear. Affect is appropriate. Motor tone was symmetrical. No drift to the extremities is present. No tremors or asterixis are noted. She is fully alert. In fact, she is texting message on her cell phone. At present time, she is not having any obvious weakness. No seizure activity was present. IMPRESSION: At this point, on IV Keppra, the seizures are controlled associated with controlling the hyperemesis with Zofran. I will get an EEG on the patient to further assess this situation. JOB# [id number] TERRY/HAIDER
[2017-02-16] MEDS: LACTATED RINGERS 1,000 ML IV SCH ×3 (06:13→23:51)
[2017-02-16] MEDS: KEPPRA 750 MG in D5W 100 ML IV SCH ×2 (09:41→22:01)
[2017-02-16] MEDS: DIFLUCAN PO SCH (09:43)
[2017-02-16] MEDS: PRENATAL VITAMIN PO SCH (09:43)
--- NOTE | 2017-02-16 10:02 | Progress Note ---
Assessment and Plan Assessment and plan: 1. Seizure disorder Admitted for multiple seizures most likely secondary to inability to take her antiepileptics due to hyperemesis gravidarum On Keppra IV and no further seizures Neurology also consulted and managing now 2. Second trimester with hyperemesis gravidarum Management per OB There is nothing that we can add at this time, so will sign off, please call with questions or concerns if any History Interval history: Doing well, no further seizures, nausea controlled with Zofran, no more vomiting Hospitalist Physical - Constitutional Vitals: Temp Pulse Resp BP Pulse Ox 98 F 89 20 98/55 98 02/16/17 07:41 02/16/17 07:41 02/16/17 07:41 02/16/17 07:41 02/16/17 07:37 General appearance: Present: no acute distress - EENT Eyes: Present: PERRL, EOM intact. Absent: scleral icterus, conjunctival injection - Neck Neck: Present: supple, normal ROM. Absent: masses or JVD - Respiratory Respiratory effort: normal Respiratory: bilateral: CTA, negative: rhonchi, wheezing - Cardiovascular Rhythm: regular Heart Sounds: Present: S1 & S2. Absent: systolic murmur - Extremities Extremities: no ischemia - Abdominal General gastrointestinal: soft, non-tender, non-distended, normal bowel sounds - Integumentary Integumentary: Present: warm, dry. Absent: jaundice, rash - Psychiatric Psychiatric: cooperative - Neurologic Neurologic: CNII-XII intact, no focal deficits Results - Labs CBC & Chem 7: 02/13/17 20:04 02/13/17 19:58 Labs: Laboratory Last Values WBC 7.4 K/mm3 (4.5-11.0) 02/13/17 20:04 RBC 3.91 M/mm3 (3.65-5.03) 02/13/17 20:04 Hgb 9.9 gm/dl (10.1-14.3) L 02/13/17 20:04 Hct 29.9 % (30.3-42.9) L 02/13/17 20:04 MCV 77 fl (79-97) L 02/13/17 20:04 MCH 25 pg (28-32) L 02/13/17 20:04 MCHC 33 % (30-34) 02/13/17 20:04 RDW 15.7 % (13.2-15.2) H 02/13/17 20:04 Plt Count 244 K/mm3 (140-440) 02/13/17 20:04 Lymph % (Auto) 12.1 % (13.4-35.0) L 02/13/17 20:04 [place] % (Auto) 12.5 % (0.0-7.3) H 02/13/17 20:04 Eos % (Auto) 0.1 % (0.0-4.3) 02/13/17 20:04 Baso % (Auto) 0.3 % (0.0-1.8) 02/13/17 20:04 Lymph # 0.9 K/mm3 (1.2-5.4) L 02/13/17 20:04 [place] # 0.9 K/mm3 (0.0-0.8) H 02/13/17 20:04 Eos # 0.0 K/mm3 (0.0-0.4) 02/13/17 20:04 Baso # 0.0 K/mm3 (0.0-0.1) 02/13/17 20:04 Seg Neutrophils % 75.0 % (40.0-70.0) H 02/13/17 20:04 Seg Neutrophils # 5.5 K/mm3 (1.8-7.7) 02/13/17 20:04 Sodium 135 mmol/L (137-145) L 02/13/17 19:58 Potassium 3.5 mmol/L (3.6-5.0) L 02/13/17 19:58 Chloride 103.1 mmol/L (98-107) 02/13/17 19:58 Carbon Dioxide 17 mmol/L (22-30) L 02/13/17 19:58 Anion Gap 18 mmol/L 02/13/17 19:58 BUN 4 mg/dL (7-17) L 02/13/17 19:58 Creatinine 0.3 mg/dL (0.7-1.2) L 02/13/17 19:58 Estimated GFR > 60 ml/min 02/13/17 19:58 BUN/Creatinine Ratio 13.33 % 02/13/17 19:58 Glucose 71 mg/dL (65-100) 02/13/17 19:58 Calcium 8.2 mg/dL (8.4-10.2) L 02/13/17 19:58 Magnesium 4.2 mg/dL (1.7-2.3) H 02/14/17 20:45 Total Bilirubin 0.2 mg/dL (0.1-1.2) 02/13/17 19:58 AST 12 units/L (5-40) 02/13/17 19:58 ALT 6 units/L (7-56) L 02/13/17 19:58 Alkaline Phosphatase 62 units/L (35-129) 02/13/17 19:58 Total Protein 7.1 g/dL (6.3-8.2) 02/13/17 19:58 Albumin 3.4 g/dL (3.9-5) L 02/13/17 19:58 Albumin/Globulin Ratio 0.9 % 02/13/17 19:58 Urine Color Yellow (Yellow) 02/13/17 20:00 Urine Turbidity Clear (Clear) 02/13/17 20:00 Urine pH 6.0 (5.0-7.0) 02/13/17 20:00 Ur Specific [place] 1.019 (1.003-1.030) 02/13/17 20:00 Urine Protein <15 mg/dl mg/dL (Negative) 02/13/17 20:00 Urine Glucose (UA) Neg mg/dL (Negative) 02/13/17 20:00 Urine Ketones 80 mg/dL (Negative) 02/13/17 20:00 Urine Blood Neg (Negative) 02/13/17 20:00 Urine Nitrite Neg (Negative) 02/13/17 20:00 Urine Bilirubin Neg (Negative) 02/13/17 20:00 Urine Urobilinogen < 2.0 mg/dL (<2.0) 02/13/17 20:00 Ur Leukocyte Esterase Neg (Negative) 02/13/17 20:00 Urine WBC (Auto) < 1.0 /HPF (0.0-6.0) 02/13/17 20:00 Urine RBC (Auto) < 1.0 /HPF (0.0-6.0) 02/13/17 20:00 U Epithel Cells (Auto) < 1.0 /HPF (0-13.0) 02/13/17 20:00 Urine Mucus 2+ /HPF 02/13/17 20:00
--- NOTE | 2017-02-16 10:17 | Progress Note ---
Assessment and Plan - Patient Problems (1) 22 weeks gestation of Onset Date: 02/13/17 Current Visit: Yes Status: Resolved Plan to address problem: A: IUP @ 23 1/7 weeks Seizure disorder in - improved. Productive cough No care this P: Continue present management Will try to switch to PO Keppra Obtain CBC, CMP, CXR (with abdominal shield) and sputum specimen before starting IV Ampicillin (2) Seizure disorder during in second trimester Onset Date: 02/13/17 Current Visit: Yes Status: Acute (3) 23 weeks gestation of Onset Date: 02/15/17 Current Visit: Yes Status: Acute Subjective - Subjective Date of service: 02/16/17 Principal diagnosis: IUP @ 23 1/7 weeks; Seizure disorder Interval history: Pt is a 21yo BF EDC 06/14/17: EGA 23 1/7 weeks, currently on Keppra 750mg IV BID and complaining of coughing up mucus. No further vomiting or seizures. Patient reports: new complaints (productive cough and subjective fever), movement normal, no loss of fluid, no vaginal bleeding, no contractions Objective - Vital Signs Vital Signs: Vital Signs - 12hr 02/16/17 02/16/17 02/16/17 00:16 00:19 03:37 Temperature 98.5 F 99.7 F H Pulse Rate 83 106 H Pulse Rate [ Right From Monitor] Respiratory 16 Rate Blood Pressure 99/53 97/55 Blood Pressure [Right Arm] O2 Sat by Pulse 99 Oximetry 02/16/17 02/16/17 02/16/17 03:40 07:37 07:38 Temperature Pulse Rate 89 83 Pulse Rate [ Right From Monitor] Respiratory 18 Rate Blood Pressure 83/45 Blood Pressure [Right Arm] O2 Sat by Pulse 98 Oximetry 02/16/17 02/16/17 07:39 07:41 Temperature 98 F Pulse Rate 93 H Pulse Rate [ 89 Right From Monitor] Respiratory 20 Rate Blood Pressure 98/55 Blood Pressure 98/55 [Right Arm] O2 Sat by Pulse Oximetry - Exam Breasts: deferred Cardiovascular: Regular rate Lungs: Other (bibasilar rales) Abdomen: Present: normal appearance, soft Uterus: Present: normal FHR: auscultation normal - Labs Labs: Abnormal Labs 02/13/17 02/13/17 02/14/17 19:58 20:04 04:00 Hgb 9.9 L Hct 29.9 L MCV 77 L MCH 25 L RDW 15.7 H Lymph % (Auto) 12.1 L [place] % (Auto) 12.5 H Lymph # 0.9 L [place] # 0.9 H Seg Neutrophils % 75.0 H Sodium 135 L Potassium 3.5 L Carbon Dioxide 17 L BUN 4 L Creatinine 0.3 L Calcium 8.2 L Magnesium 4.6 H ALT 6 L Albumin 3.4 L 02/14/17 02/14/17 18:00 20:45 Hgb Hct MCV MCH RDW Lymph % (Auto) [place] % (Auto) Lymph # [place] # Seg Neutrophils % Sodium Potassium Carbon Dioxide BUN Creatinine Calcium Magnesium 4.2 H 4.2 H ALT Albumin
[2017-02-16] MEDS: ROBITUSSIN DM PO PRN ×2 (10:20→22:00)
[2017-02-16 10:50] LABS: Basophils % (Auto) 0.3 % (0.0-1.8); Eosinophils % (Auto) 0.4 % (0.0-4.3); Hematocrit 26.6 % (30.3-42.9); Hemoglobin 8.8 gm/dl (10.1-14.3); Mean Corpuscular HGB Conc 33 % (30-34); Mean Corpuscular Hemoglobin 26 pg (28-32); Mean Corpuscular Volume 77 fl (79-97); Platelet Count 190 K/mm3 (140-440); Red Blood Count 3.44 M/mm3 (3.65-5.03); Red Cell Distribution Width 15.8 % (13.2-15.2); White Blood Count 4.7 K/mm3 (4.5-11.0)
--- NOTE | 2017-02-16 11:14 | XRay Report ---
ROUTINE CHEST, TWO VIEWS: HISTORY: Productive cough. The trachea, heart, mediastinal contour, lung mccord and bony thorax are unremarkable. IMPRESSION: Unremarkable chest x-ray.
[2017-02-16 11:27] LABS: Albumin 2.7 g/dL (3.9-5); Albumin/Globulin Ratio 0.9 %; Alkaline Phosphatase 54 units/L (35-129); Anion Gap 14 mmol/L; Bilirubin,Total < 0.2 mg/dL (0.1-1.2); Calcium 7.6 mg/dL (8.4-10.2); Carbon Dioxide 23 mmol/L (22-30); Glucose 85 mg/dL (65-100); Potassium 3.6 mmol/L (3.6-5.0); Sodium 136 mmol/L (137-145); Total Protein 5.7 g/dL (6.3-8.2)
[2017-02-16 11:36] LABS: Alanine Aminotransferase < 5 units/L (7-56); Blood Urea Nitrogen 1 mg/dL (7-17)
[2017-02-17] MEDS: ZOFRAN IV PRN ×2 (06:24→12:23)
[2017-02-17] MEDS: KEPPRA 750 MG in D5W 100 ML IV SCH (10:30)
[2017-02-17] MEDS: PRENATAL VITAMIN PO SCH (10:30)
[2017-02-17] MEDS: DIFLUCAN PO SCH (10:30)
[2017-02-17 10:51] LABS: Urine Drugs of Abuse Note Disclamer
--- NOTE | 2017-02-17 12:54 | Progress Note ---
Assessment and Plan A: IUP @ 23 2/7 weeks Seizure disorder in - improved. Productive cough - CXR neg No care this P: Continue present management Have started oral Keppra Possible discharge in 24 hours - Patient Problems (1) 23 weeks gestation of Onset Date: 02/15/17 Current Visit: Yes Status: Acute (2) Seizure disorder during in second trimester Onset Date: 02/13/17 Current Visit: Yes Status: Acute Subjective - Subjective Date of service: 02/17/17 Principal diagnosis: IUP @ 23 2/7 weeks; Seizure disorder Interval history: Patient seen and examined, stable doing well. No further seizure activity on Keppra Patient reports: new complaints (productive cough and subjective fever), movement normal, no loss of fluid, no vaginal bleeding, no contractions Objective - Vital Signs Vital Signs: Vital Signs - 12hr 02/17/17 02/17/17 02/17/17 03:05 03:10 03:15 Temperature Pulse Rate 108 H 93 H 94 H Pulse Rate [ Right From Monitor] Respiratory Rate Blood Pressure Blood Pressure [Right Arm] O2 Sat by Pulse 100 95 97 Oximetry 02/17/17 02/17/17 02/17/17 03:20 03:25 03:30 Temperature Pulse Rate 95 H 90 92 H Pulse Rate [ Right From Monitor] Respiratory Rate Blood Pressure Blood Pressure [Right Arm] O2 Sat by Pulse 100 100 100 Oximetry 02/17/17 02/17/17 02/17/17 03:35 03:40 03:45 Temperature Pulse Rate 95 H 108 H 91 H Pulse Rate [ Right From Monitor] Respiratory Rate Blood Pressure Blood Pressure [Right Arm] O2 Sat by Pulse 100 100 100 Oximetry 02/17/17 02/17/17 02/17/17 03:50 03:55 04:00 Temperature Pulse Rate 92 H 88 86 Pulse Rate [ Right From Monitor] Respiratory Rate Blood Pressure Blood Pressure [Right Arm] O2 Sat by Pulse 100 100 100 Oximetry 02/17/17 02/17/17 02/17/17 04:10 04:12 07:26 Temperature 98.8 F Pulse Rate 106 H 98 H Pulse Rate [ Right From Monitor] Respiratory 16 Rate Blood Pressure 127/74 114/59 Blood Pressure [Right Arm] O2 Sat by Pulse 96 Oximetry 02/17/17 02/17/17 02/17/17 07:27 07:31 07:33 Temperature 98.3 F Pulse Rate 95 H 96 H Pulse Rate [ 104 H Right From Monitor] Respiratory 20 Rate Blood Pressure Blood Pressure 114/59 [Right Arm] O2 Sat by Pulse 98 98 92 Oximetry 02/17/17 02/17/17 02/17/17 12:15 12:16 12:17 Temperature 98.0 F Pulse Rate 98 H 100 H Pulse Rate [ 100 H Right From Monitor] Respiratory 20 Rate Blood Pressure 106/58 Blood Pressure 106/58 [Right Arm] O2 Sat by Pulse 98 98 Oximetry 02/17/17 12:21 Temperature Pulse Rate 106 H Pulse Rate [ Right From Monitor] Respiratory Rate Blood Pressure Blood Pressure [Right Arm] O2 Sat by Pulse 97 Oximetry - Exam Abdomen: Present: normal appearance, soft. Absent: distention, tenderness, guarding, rigidity - Labs Labs: Abnormal Labs 02/13/17 02/13/17 02/14/17 19:58 20:04 04:00 RBC Hgb 9.9 L Hct 29.9 L MCV 77 L MCH 25 L RDW 15.7 H Lymph % (Auto) 12.1 L [place] % (Auto) 12.5 H Lymph # 0.9 L [place] # 0.9 H Seg Neutrophils % 75.0 H Sodium 135 L Potassium 3.5 L Carbon Dioxide 17 L BUN 4 L Creatinine 0.3 L Calcium 8.2 L Magnesium 4.6 H ALT 6 L Total Protein Albumin 3.4 L 02/14/17 02/14/17 02/16/17 18:00 20:45 10:24 RBC 3.44 L Hgb 8.8 L Hct 26.6 L MCV 77 L MCH 26 L RDW 15.8 H Lymph % (Auto) [place] % (Auto) 13.7 H Lymph # [place] # Seg Neutrophils % Sodium Potassium Carbon Dioxide BUN Creatinine Calcium Magnesium 4.2 H 4.2 H ALT Total Protein Albumin 02/16/17 10:24 RBC Hgb Hct MCV MCH RDW Lymph % (Auto) [place] % (Auto) Lymph # [place] # Seg Neutrophils % Sodium 136 L Potassium Carbon Dioxide BUN 1 L Creatinine 0.4 L Calcium 7.6 L Magnesium ALT < 5 L Total Protein 5.7 L Albumin 2.7 L Laboratory Results - last 24 hr 02/17/17 07:50 Urine Opiates Screen Presumptive negative Urine Methadone Screen Presumptive negative Ur Barbiturates Screen Presumptive negative Ur Phencyclidine Scrn Presumptive negative Ur Amphetamines Screen Presumptive negative U Benzodiazepines Scrn Presumptive negative Urine Cocaine Screen Presumptive negative U Marijuana (THC) Screen Presumptive positive Drugs of Abuse Note Disclamer
[2017-02-17] MEDS ORDERED: ZOFRAN ODT PO PRN (15:58)
[2017-02-17 16:15] VITALS: BP 102/57
--- NOTE | 2017-02-17 19:25 | Discharge Summary ---
Providers - Providers Date of Admission: 02/13/17 18:04 Date of discharge: 02/17/17 Attending physician: HOWARD DUDLEY MD 02/13/17 Consult to Case Management [CONS] Routine Services Needed at Discharge: Electroplating Technician Notified:: SUJEY Phone number called:: [phone] Was contact made?: Yes If yes, spoke with:: SUJEY Time called:: 14:20 Comment:: ALREADY SPOKE WITH PATIENT Additional Physician Instructions: 02/13/17 18:10 Consult to Physician [CONS] Urgent Consulting Provider: CAT FERNANDEZ Reason For Exam: Seizures in Place consult to:: Answering service Notified:: Answering service Phone number called:: [phone] Was contact made?: Yes If yes, spoke with:: Mallory Time called:: 18:14 02/13/17 18:16 Consult to Physician [CONS] Urgent Consulting Provider: ROGE FITZGERALD Reason For Exam: seizures in Place consult to:: Dr Fitzgerald Notified:: Dr Fitzgerald Phone number called:: [phone] Was contact made?: Yes If yes, spoke with:: Dr Fitzgerald Time called:: 18:19 02/13/17 18:19 Consult to Physician [CONS] Urgent Consulting Provider: ALBERT SAUCEDA Reason For Exam: Seizures in Place consult to:: APA Notified:: APA Phone number called:: [phone] Was contact made?: Yes If yes, spoke with:: Natividad Time called:: 18:20 Primary care physician: HOWARD DUDLEY MD Hospitalization Reason for admission: IUP - (IUP at 23 weeks with seizure disorder), observation Discharge diagnosis: other (IUPP at 23 weeks, left AGAINST MEDICAL ADVICE) Hospital course: Pt is a 21yo BF EDC 06/14/17: EGA 22 5/7 weeks presents to [facility] L&D via ambulance after having 2 witnessed seizures at home and 2 en-route to the hospital. She was recently discharged from [facility] 02/06/17 for a similar episode, and was discharged to home on Keppra 750mg BID, but states she could not keep her meds down due to persistent nausea and vomiting. She is currently post- ictal and received magnesium sulfate IV. During her previous hospitalization she was evaluated by Dr Fernandez ( Neurologist), Dr Ballesteros (Perinatologist) and Dr Snyder (Hospitalist), each of whom will be re-consulted during this admission. She was admitted and restarted on her medication. She was seen in consultation by MFM, Hospitalist and Neurology. She did well on Keppra. Patient left AMA on 02/18/16 due to family issues. Condition at discharge: Good Disposition: LEFT AGAINST MEDICAL ADVICE - Discharge Diagnoses (1) 23 weeks gestation of Status: Acute (2) Seizure disorder during in second trimester Status: Acute Plan - Provider Discharge Summary Additional instructions: [] Smoking cessation referral if applicable(refer to patient education folder for contact #) [] Refer to [facility]'s [facility] Center Booklet Call your doctor immediately for: * Fever > 100.5 * Heavy vaginal bleeding ( >1 pad per hour) * Severe persistent headache * Shortness of breath * Reddened, hot, painful area to leg or breast * Drainage or odor from incision. * Keep incision clean and dry at all times and follow doctor's instructions regarding bathing/showering - Follow up plan Follow up: HOWARD PACHECO MD [Primary Care Provider] - 7 Days
[2017-02-17] MEDS ORDERED: KEPPRA PO SCH (22:00)
== END 2017-02-17 18:35 | disposition left against medical advice (07) | DRG 781 ==
LOC: TRG 17:45 → LD 17:46 → TRG 18:04 → LD 18:04
PROVIDERS: ADMIT Obstetrics & Gynecology; ATTEND Obstetrics & Gynecology
DX: O99.352 Diseases of the nervous system complicating pregnancy, second trimester (principal); O21.0 Mild hyperemesis gravidarum; O26.892 Other specified pregnancy related conditions, second trimester; G40.909 Epilepsy, unspecified, not intractable, without status epilepticus; Z3A.23 23 weeks gestation of pregnancy
CPT/HCPCS: 36415; 71020; 76816; 80053; 80177; 80307; 81001; 83735; 85025; 87070; 87205; J1953; J2405; J3475; J7120; Q0162

== ENCOUNTER 2017-04-19 13:33 | Outpatient (CLI) | payer SELFPAY ==
[2017-04-19 14:11] VITALS: BP 111/58
[2017-04-19 15:18] LABS: Urine Drugs of Abuse Note Disclamer
[2017-04-19] MEDS ORDERED: LACTATED RINGERS 500 ML IV ONE (17:24)
--- NOTE | 2017-04-20 07:38 | Ultrasound Report ---
OB LIMITED - TRANSABDOMINAL AND TRANSVAGINAL INDICATION: labor. COMPARISON: 02/13/2017 TECHNIQUE: Transabdominal grayscale ultrasound with Doppler interrogation. Transvaginal images to evaluate the cervix also obtained. Gestation: [place] Position: Cephalic Placenta: Posterior Placental Grade: I Heart Rate: 150 BPM Cervical length: 3.6 cm (Normal > 3 cm)
== END 2017-04-19 17:37 | disposition home or self-care (01) ==
LOC: TRG 13:33
PROVIDERS: ATTEND Obstetrics & Gynecology
DX: O60.03 Preterm labor without delivery, third trimester (principal); Z3A.32 32 weeks gestation of pregnancy
CPT/HCPCS: 59025; 76815; 76817; 80307

== ENCOUNTER 2017-05-22 04:08 | Emergency (ER) | payer SELFPAY ==
[2017-05-22 05:27] LABS: Basophils % (Auto) 0.3 % (0.0-1.8); Eosinophils % (Auto) 0.4 % (0.0-4.3); Hematocrit 26.5 % (30.3-42.9); Hemoglobin 8.2 gm/dl (10.1-14.3); Mean Corpuscular HGB Conc 31 % (30-34); Platelet Count 260 K/mm3 (140-440); Red Blood Count 3.84 M/mm3 (3.65-5.03); Red Cell Distribution Width 18.2 % (13.2-15.2); White Blood Count 8.5 K/mm3 (4.5-11.0)
[2017-05-22 05:39] LABS: Mean Corpuscular Hemoglobin 21 pg (28-32); Mean Corpuscular Volume 69 fl (79-97)
[2017-05-22 05:46] LABS: Alkaline Phosphatase 139 units/L (35-129); Anion Gap 19 mmol/L; Blood Urea Nitrogen 3 mg/dL (7-17); Carbon Dioxide 19 mmol/L (22-30); Chloride 103.1 mmol/L (98-107); Glucose 75 mg/dL (65-100); Potassium 3.6 mmol/L (3.6-5.0); Sodium 137 mmol/L (137-145)
[2017-05-22 05:54] LABS: Alanine Aminotransferase < 5 units/L (7-56)
[2017-05-22] MEDS ORDERED: KEPPRA 1,000 MG in D5W 100 ML IV ONE (06:06)
--- NOTE | 2017-05-22 06:11 | Emergency Department Report ---
ED Seizure HPI - General Chief Complaint: Seizure Stated Complaint: SEIZURE Time Seen by Provider: 05/22/17 05:59 Source: patient, EMS Mode of arrival: Stretcher Limitations: No Limitations - History of Present Illness Initial Comments: Patient is a 21-year-old female who is 39 weeks here with complaint of tonic-clonic seizure. Patient is has a known seizure history and has not been taking her Keppra for the last 3-4 days due to vomiting. According to her friends she had 3-4 episodes of partial seizures followed by a short tonic- clonic seizure. Here she states that she doesn't feel well. Denies headache fever chills. Complaint: seizure -: Sudden Description of Episode: tonic-clonic movement Seizure History: known seizure disorder Place: home Possible Precipitating Event: none Associated Symptoms: denies other symptoms Treatments Prior to Arrival: none - Related Data Home Medications Medication Instructions Recorded Confirmed Last Taken Pnv with Ca,No.72/Iron/FA [Pnv 1 each PO DAILY 02/02/17 02/13/17 02/13/17 09:00 Plus Multivit Tab] 1 Previous Rx's Medication Instructions Recorded Last Taken Type levETIRAcetam [Keppra TAB] 750 mg PO BID #60 tablet 06/06/16 02/13/17 09:00 Rx 1 Nitrofurantoin [place]/M-Cryst 100 mg PO Q12HR #20 capsule 02/06/17 02/13/17 09:00 Rx [Macrobid CAP] 1 Allergies Allergy/AdvReac Type Severity Reaction Status Date / Time [place] And Derivatives Allergy Unknown Verified 05/22/17 05:43 ED Review of Systems ROS: Stated complaint: SEIZURE Other details as noted in HPI Comment: All other systems reviewed and negative Constitutional: denies: chills, fever Eyes: denies: eye pain, eye discharge, vision change ENT: denies: ear pain, throat pain Respiratory: denies: cough, shortness of breath, wheezing Cardiovascular: denies: chest pain, palpitations Endocrine: no symptoms reported Gastrointestinal: denies: abdominal pain, nausea, diarrhea Genitourinary: denies: urgency, dysuria, discharge Musculoskeletal: denies: back pain, joint swelling, arthralgia Skin: denies: rash, lesions Neurological: denies: headache, weakness, paresthesias Psychiatric: denies: anxiety, depression Hematological/Lymphatic: denies: easy bleeding, easy bruising ED Past Medical Hx - Past Medical History Previous Medical History?: Yes Hx Hypertension: No Hx Congestive Heart Failure: No Hx Diabetes: No Hx Deep Vein Thrombosis: No Hx Sickle Cell Disease: No Hx Seizures: Yes Hx Asthma: No Hx COPD: No Hx HIV: No - Surgical History Past Surgical History?: No - Social History Smoking Status: Unknown if ever smoked Substance Use Type: None - Medications Home Medications: Home Medications Medication Instructions Recorded Confirmed Last Taken Type levETIRAcetam [Keppra TAB] 750 mg PO BID #60 tablet 06/06/16 02/13/17 02/13/17 09:00 Rx 1 Pnv with Ca,No.72/Iron/FA [Pnv 1 each PO DAILY 02/02/17 02/13/17 02/13/17 09:00 History Plus Multivit Tab] 1 Nitrofurantoin [place]/M-Cryst 100 mg PO Q12HR #20 capsule 02/06/17 02/13/17 09:00 Rx [Macrobid CAP] 1 ED Physical Exam - General Limitations: No Limitations General appearance: alert, in no apparent distress - Head Head exam: Present: atraumatic, normocephalic - Eye Eye exam: Present: normal appearance - ENT ENT exam: Present: mucous membranes moist - Neck Neck exam: Present: normal inspection - Respiratory Respiratory exam: Present: normal lung sounds bilaterally. Absent: respiratory distress - Cardiovascular Cardiovascular Exam: Present: regular rate, normal rhythm. Absent: systolic murmur, diastolic murmur, rubs, gallop - GI/Abdominal GI/Abdominal exam: Present: soft, other - Extremities Exam Extremities exam: Present: normal inspection - Back Exam Back exam: Present: normal inspection - Neurological Exam Neurological exam: Present: alert, oriented X3 - Psychiatric Psychiatric exam: Present: normal affect, normal mood - Skin Skin exam: Present: warm, dry, intact, normal color. Absent: rash ED Course Vital Signs 05/22/17 05/22/17 05/22/17 04:22 05:00 06:00 Pulse Rate 93 H 79 86 Respiratory 16 17 15 Rate Blood Pressure 124/77 119/70 05/22/17 07:00 Pulse Rate 78 Respiratory 20 Rate Blood Pressure 111/62 ED Medical Decision Making - Lab Data Result diagrams: 05/22/17 04:57 07/03/17 04:57 Laboratory Results - last 24 hr 05/22/17 05/22/17 04:57 04:57 WBC 8.5 RBC 3.84 Hgb 8.2 L Hct 26.5 L MCV 69 L MCH 21 L MCHC 31 RDW 18.2 H Plt Count 260 Lymph % (Auto) 30.1 [place] % (Auto) 10.0 H Eos % (Auto) 0.4 Baso % (Auto) 0.3 Lymph # 2.6 [place] # 0.9 H Eos # 0.0 Baso # 0.0 Seg Neutrophils % 59.2 Seg Neutrophils # 5.0 Sodium 137 Potassium 3.6 Chloride 103.1 Carbon Dioxide 19 L Anion Gap 19 BUN 3 L Creatinine 0.4 L Estimated GFR > 60 BUN/Creatinine Ratio 7.50 Glucose 75 Calcium 8.0 L Total Bilirubin 0.30 AST 11 ALT < 5 L Alkaline Phosphatase 139 H Total Protein 6.0 L Albumin 3.0 L Albumin/Globulin Ratio 1.0 - Medical Decision Making Patient is a 21-year-old female who is 39 weeks here status post seizure. I do not believe this is related to eclampsia or preeclampsia. She has a known seizure history. She is not hypertensive. She has no leg swelling. Plan to check heart tones checked labs will give a dose of IV Keppra and plan to reassess. We'll discuss case with on-call OB. Keppra given. heart tones at [address] case [address] Thurman. Planned outpatient follow-up at OB triage for monitoring. Portions of this chart were dictated with dictation software. There may be dictation errors contained within this note. Critical care attestation.: If time is entered above; I have spent that time in minutes in the direct care of this critically ill patient, excluding procedure time. ED Disposition Clinical Impression: Seizures, Disposition: DC/TX-70 ANOTHER TYPE HLTHCARE Is pt being admited?: No Condition: Stable Instructions: Recurrent Seizures Adult (ED) Additional Instructions: Please follow up immediately at OB triage he will need monitoring. Referrals: PRIMARY CARE, [Primary Care Provider] - 3-5 Days Time of Disposition: 08:53
[2017-05-22 06:17] LABS: Bilirubin,Urine NEG (Negative); Blood,Urine NEG (Negative); Ketones,Urine 80 mg/dL (Negative); Leukocyte Esterase,Urine LG (Negative); Mucus,Urine FEW /HPF; Nitrite,Urine NEG (Negative); Protein,Urine <15 mg/dL mg/dL (Negative); Urobilinogen,Urine < 2.0 mg/dL (<2.0)
[2017-05-22] MEDS ORDERED: KEPPRA 1,000 MG/NS 0.75% 100ML 1,000 MG/100 ML BAG IV ONE (07:00)
[2017-05-22] MEDS ORDERED: ZOFRAN PO ONE (08:28)
[2017-05-22] MEDS ORDERED: ZOFRAN ODT ONE (08:28)
[2017-05-22] MEDS ORDERED: ZOFRAN ODT PO ONE (09:00)
[2017-05-22 09:04] VITALS: BP 107/62
== END 2017-05-22 09:04 | disposition other institution (70) ==
LOC: ED 04:08
DX: O15.9 Eclampsia, unspecified as to time period (principal); Z91.018 Allergy to other foods; Z3A.39 39 weeks gestation of pregnancy
CPT/HCPCS: 36415; 80053; 81001; 85025; 96365; 99284; J1953; Q0162

== ENCOUNTER 2017-06-09 01:00 | Inpatient (IN) | payer OTHER ==
[2017-06-09] MEDS ORDERED: XYLOCAINE 2% INFILTRATI ONE (01:39)
[2017-06-09] MEDS ORDERED: PITOCin/NS 20 UNIT/1000ML DRIP 20,000 MILLIUNITS/1,000 ML BAG IV ONE (01:39)
[2017-06-09] MEDS ORDERED: LACTATED RINGERS 0 ML ONE (01:39)
[2017-06-09] MEDS ORDERED: METHERGINE IM ONE ×2 (01:55→02:32)
[2017-06-09] MEDS ORDERED: ZOFRAN ONE (02:10)
[2017-06-09] MEDS ORDERED: MINERAL OIL PO PRN (02:28)
[2017-06-09] MEDS ORDERED: LANSINOH TP PRN (02:37)
[2017-06-09] MEDS ORDERED: TUCKS PAD TP PRN (02:37)
[2017-06-09] MEDS ORDERED: TYLENOL PO PRN (02:37)
[2017-06-09] MEDS ORDERED: PHENERGAN PR PRN (02:37)
[2017-06-09] MEDS ORDERED: DULCOLAX PR PRN (02:37)
[2017-06-09] MEDS ORDERED: PHENERGAN PO PRN (02:37)
[2017-06-09] MEDS ORDERED: BENADRYL PO PRN (02:37)
[2017-06-09] MEDS ORDERED: ZOFRAN IV PRN (02:37)
[2017-06-09] MEDS ORDERED: METHERGINE PO PRN (02:37)
[2017-06-09] MEDS ORDERED: MILK OF MAGNESIA PO PRN (02:37)
[2017-06-09 02:42] LABS: Urine Drugs of Abuse Note Disclamer
--- NOTE | 2017-06-09 02:50 | History and Physical Report ---
History of Present Illness Date of examination: 06/09/17 (pt presented to Triage in active labor) Chief complaint: contractions History of present illness: with limited PNC. 1. 2012 male 9pounds [place] 2. 2013 male 8 pounds [place] 3. 2015 male 8 pounds [place] - precipitous delivery/no attendant Pt denies any complications with pregnancies or deliveries. Denies smoking, ETOH, drug use Medical HX : dx as a child with seizures Pt states she comes to [facility] ED for her medication Keppra Surgical HX :negative Pt states EDC is 06-14-17 Past History - Obstetrical History Expected Date of Delivery: 06/14/17 Actual Gestation: 39 Week(s) 2 Day(s) : 4 Para: 3 Hx # Term Pregnancies: 3 Number of Living Children: 3 Medications and Allergies Allergies Allergy/AdvReac Type Severity Reaction Status Date / Time [place] And Derivatives Allergy Unknown Verified 05/22/17 05:43 Home Medications Medication Instructions Recorded Confirmed Last Taken Type levETIRAcetam [Keppra TAB] 750 mg PO BID #60 tablet 06/06/16 02/13/17 02/13/17 09:00 Rx 1 Pnv with Ca,No.72/Iron/FA [Pnv 1 each PO DAILY 02/02/17 02/13/17 02/13/17 09:00 History Plus Multivit Tab] 1 Nitrofurantoin [place]/M-Cryst 100 mg PO Q12HR #20 capsule 02/06/17 02/13/17 09:00 Rx [Macrobid CAP] 1 Active Meds: Active Medications Acetaminophen (Tylenol) 650 mg PO Q4H PRN PRN Reason: Pain MILD(1-3)/Fever >100.5/TORRES Acetaminophen/Hydrocodone Bitart ([place] 5/325) 2 each PO Q6H PRN PRN Reason: Pain, Moderate (4-6) Bisacodyl (Dulcolax) 10 mg [place] BID PRN PRN Reason: Constipation Diphenhydramine HCl (Benadryl) 25 mg PO Q6H PRN PRN Reason: Itching Diphtheria/Tetanus/Acell Pertussis (Boostrix) 0.5 ml IM .ONCE ONE Stop: 06/10/17 02:38 Docusate Sodium (Colace) 100 mg PO BID [facility] Ferrous Sulfate (Feosol) 325 mg PO BID [facility] Oxytocin/Sodium Chloride (Pitocin/Ns 20 Unit/1000ml Drip) 20 units in 1,000 mls @ 125 mls/hr IV DIRECT ANKUR Ibuprofen (Motrin) 600 mg PO Q6H ANKUR Levetiracetam (Keppra) 750 mg PO BID [facility] Magnesium Hydroxide (Milk Of Magnesia) 30 ml PO HS PRN PRN Reason: Constipation Measles/Mumps/Rubella Vaccine Live (M-M-R Ii Vaccine) 0.5 ml SUB-Q .ONCE ONE Stop: 06/10/17 02:38 Methylergonovine Maleate (Methergine) 0.2 mg PO Q8HR PRN PRN Reason: Bleeding Mineral Oil (Mineral Oil) 30 ml PO QHS PRN PRN Reason: Constipation Multi-Ingredient Ointment (Lansinoh) 1 applic TP PRN PRN PRN Reason: Sore Nipples Multivitamins/Iron/Calcium ( Vitamin) 1 each PO QDAY [facility] Ondansetron HCl (Zofran) 4 mg IV Q8H PRN PRN Reason: Nausea And Vomiting Promethazine HCl (Phenergan) 25 mg [place] Q6H PRN PRN Reason: Nausea And Vomiting Promethazine HCl (Phenergan) 25 mg PO Q6H PRN PRN Reason: Nausea And Vomiting Sodium Chloride (Sodium Chloride Flush Syringe 10 Ml) 10 ml IV PRN NR Witch Sarah/Glycerin (Tucks Pad) 1 each TP PRN PRN PRN Reason: Hemorrhoid/cleansing/soothing - Vital Signs Vital signs: Vital Signs Pulse BP 77 148/92 06/09/17 02:22 06/09/17 02:22 Temp Pulse Resp BP Pulse Ox 77 148/92 06/09/17 02:22 06/09/17 02:22 - Physical Exam Breasts: Cardiovascular: Regular rate, Normal S1, Normal S2 Abdomen: Positive: normal appearance, soft, normal bowel sounds. Negative: distention, tenderness Vulva: both: normal Vagina: Positive: normal moisture. Negative: discharge Cervix: Negative: lesion, discharge Uterus: Positive: normal size, normal contour Adnexa: both: normal Anus/Rectum: Positive: normal perianal skin, heme negative. Negative: rectal mass, hemorrhoids Extremities: Deep Tendon Reflex Grade: Normal +2 - Obstetrical Cervical Dilatation: 7 (BBOW) Cervical Effacement Percentage: 100 (exam per assistant front desk manager) station: -1 Uterine Contraction Pattern: Regular Uterine Tone Measurement Phase: Resting Uterine Contraction Intensity: Strong/Firm Results All other labs normal. Assessment and Plan - Patient Problems (1) Spontaneous vaginal delivery Onset Date: 06/09/17 Current Visit: Yes Status: Acute Plan to address problem: Imminent delivery on arrival.History and orders done after delivery (2) Seizure disorder during , delivered Current Visit: Yes Status: Acute Plan to address problem: Will continue Keppra 750mg po BID Neurologist consult ordered
[2017-06-09] MEDS ORDERED: MOTRIN PO ONE (02:52)
[2017-06-09] MEDS: MOTRIN PO SCH ×4 (02:58→16:43)
[2017-06-09] MEDS ORDERED: SODIUM CHLORIDE FLUSH SYRINGE 10 ML IV NR (03:00)
[2017-06-09] MEDS ORDERED: PITOCin/NS 20 UNIT/1000ML DRIP 20 UNITS/1,000 ML BAG IV SCH (03:00)
[2017-06-09 03:02] LABS: Hematocrit 27.8 % (30.3-42.9); Hemoglobin 8.5 gm/dl (10.1-14.3); Mean Corpuscular HGB Conc 31 % (30-34); Mean Corpuscular Hemoglobin 20 pg (28-32); Mean Corpuscular Volume 65 fl (79-97); Platelet Count 273 K/mm3 (140-440); Red Blood Count 4.25 M/mm3 (3.65-5.03); Red Cell Distribution Width 18.1 % (13.2-15.2); White Blood Count 12.1 K/mm3 (4.5-11.0)
[2017-06-09 03:09] LABS: Bilirubin,Urine NEG (Negative); Blood,Urine SM (Negative); Ketones,Urine TR mg/dL (Negative); Leukocyte Esterase,Urine NEG (Negative); Mucus,Urine 2+ /HPF; Nitrite,Urine NEG (Negative)
--- NOTE | 2017-06-09 03:12 | Procedure Note ---
OB Delivery Note - Delivery Date of Delivery: 06/09/17 Patient Access Associate: BIBI BAIRD Estimated blood loss: 500cc - Vaginal Delivery presentation: vertex Delivery position: OA Intrapartum events: no care, meconium, precipitous labor- <3hr Delivery induction: none Delivery monitor: none Route of delivery: Delivery placenta: spontaneous Delivery cord: 3 umbilical vessels Episiotomy: none Delivery laceration: none Anesthesia: none Delivery comments: Called urgently to LDR for delivery. Pt holding baby's head @ perineum. SROM @ time of delivery meconium fluid. NICU called live born male over intact perineum. Crying vigorously. Cord clamped and cut passed to warmer. Placenta and membrane del complete and intact, 3 vessel cord. Sent to pathology. Pitocin IVFs Uterus boggy resolved with massage Methergine IM. 8/9, EBL 500, Wgt 7-14. Mom and baby remain LDR stable. FF @ umb Lochia small - A at 1 minute: 8 at 5 minutes: 9 Gender: Male (wgt 7-14)
[2017-06-09 03:30] LABS: HIV-1 Antigen p24 Non React (Non React); HIVR-1/2 Ab Non React (Non React)
[2017-06-09] MEDS: NORCO 5/325 PO PRN (04:11)
[2017-06-09] MEDS: KEPPRA PO SCH (09:13)
[2017-06-09] MEDS: COLACE PO SCH (09:13)
[2017-06-09] MEDS: FEOSOL PO SCH (09:13)
[2017-06-09] MEDS: PRENATAL VITAMIN PO SCH (09:14)
--- NOTE | 2017-06-09 14:03 | Consultation ---
Medications and Allergies Allergies Allergy/AdvReac Type Severity Reaction Status Date / Time [place] And Derivatives Allergy Unknown Verified 05/22/17 05:43 Home Medications Medication Instructions Recorded Confirmed Last Taken Type levETIRAcetam [Keppra TAB] 750 mg PO BID #60 tablet 06/06/16 06/09/17 2 Days Ago Rx Pnv with Ca,No.72/Iron/FA [Pnv 1 each PO DAILY 02/02/17 06/09/17 2 Days Ago History Plus Multivit Tab] Nitrofurantoin [place]/M-Cryst 100 mg PO Q12HR #20 capsule 02/06/17 06/09/17 09:00 Rx [Macrobid CAP] 1 Active Meds: Active Medications Acetaminophen (Tylenol) 650 mg PO Q4H PRN PRN Reason: Pain MILD(1-3)/Fever >100.5/TORRES Acetaminophen/Hydrocodone Bitart ([place] 5/325) 2 each PO Q6H PRN PRN Reason: Pain, Moderate (4-6) Last Admin: 06/09/17 04:11 Dose: 2 each Bisacodyl (Dulcolax) 10 mg [place] BID PRN PRN Reason: Constipation Diphenhydramine HCl (Benadryl) 25 mg PO Q6H PRN PRN Reason: Itching Diphtheria/Tetanus/Acell Pertussis (Boostrix) 0.5 ml IM .ONCE ONE Stop: 06/10/17 06:06 Docusate Sodium (Colace) 100 mg PO BID [facility] Last Admin: 06/09/17 09:13 Dose: 100 mg Ferrous Sulfate (Feosol) 325 mg PO BID [facility] Last Admin: 06/09/17 09:13 Dose: 325 mg Ibuprofen (Motrin) 600 mg PO Q6H [facility] Last Admin: 06/09/17 09:11 Dose: 600 mg Levetiracetam (Keppra) 750 mg PO BID [facility] Last Admin: 06/09/17 09:13 Dose: 750 mg Magnesium Hydroxide (Milk Of Magnesia) 30 ml PO HS PRN PRN Reason: Constipation Measles/Mumps/Rubella Vaccine Live (M-M-R Ii Vaccine) 0.5 ml SUB-Q .ONCE ONE Stop: 06/10/17 06:01 Methylergonovine Maleate (Methergine) 0.2 mg PO Q8HR PRN PRN Reason: Bleeding Multi-Ingredient Ointment (Lansinoh) 1 applic TP PRN PRN PRN Reason: Sore Nipples Multivitamins/Iron/Calcium ( Vitamin) 1 each PO QDAY ANKUR Last Admin: 06/09/17 09:14 Dose: 1 each Ondansetron HCl (Zofran) 4 mg IV Q8H PRN PRN Reason: Nausea And Vomiting Promethazine HCl (Phenergan) 25 mg [place] Q6H PRN PRN Reason: Nausea And Vomiting Promethazine HCl (Phenergan) 25 mg PO Q6H PRN PRN Reason: Nausea And Vomiting Sodium Chloride (Sodium Chloride Flush Syringe 10 Ml) 10 ml IV PRN NR Stop: 06/10/17 02:59 Witch Sarah/Glycerin (Tucks Pad) 1 each TP PRN PRN PRN Reason: Hemorrhoid/cleansing/soothing Exam - Constitutional Vitals: Temp Pulse Resp BP Pulse Ox 97.9 F 66 20 130/72 06/09/17 08:58 06/09/17 08:58 06/09/17 09:11 06/09/17 08:58 Results - Labs CBC & Chem 7: 06/09/17 02:34 Labs: Abnormal lab results 06/09/17 Range/Units 02:34 WBC 12.1 H (4.5-11.0) K/mm3 Hgb 8.5 L (10.1-14.3) gm/dl Hct 27.8 L (30.3-42.9) % MCV 65 L (79-97) fl MCH 20 L (28-32) pg RDW 18.1 H (13.2-15.2) %
[2017-06-09 14:43] LABS: Hematocrit 26.8 % (30.3-42.9); Hemoglobin 8.4 gm/dl (10.1-14.3)
[2017-06-10] MEDS: MOTRIN PO SCH ×4 (00:08→17:43)
[2017-06-10] MEDS: FEOSOL PO SCH ×3 (00:08→21:42)
[2017-06-10] MEDS: KEPPRA PO SCH ×3 (00:11→21:44)
[2017-06-10] MEDS ORDERED: M-M-R II VACCINE SUB-Q ONE (06:00)
[2017-06-10] MEDS ORDERED: BOOSTRIX IM ONE (06:05)
[2017-06-10] MEDS: COLACE PO SCH ×2 (10:32→21:42)
[2017-06-10] MEDS: PRENATAL VITAMIN PO SCH (10:33)
--- NOTE | 2017-06-10 11:08 | History and Physical Report ---
History of Present Illness Date of examination: 06/09/17 Date of admission: 06/09/17 02:40 Chief complaint: I have seizures History of present illness: 21 YO Female with Seizure Disorder, Medication Noncompliance admitted in active labor. Pt seen and evaluated. Pt denies seizure during past 90 days. Pt denies fever, chills, CP, Palpitations, NVD, Syncope, Recent ill contacts, headache, falls, productive cough, or skin rashes. Past History Past Medical History: seizures Past Surgical History: No surgical history, Other (reviewed) Social history: single. denies: smoking, alcohol abuse, prescription drug abuse , IV drug use Family history: hypertension Medications and Allergies Allergies Allergy/AdvReac Type Severity Reaction Status Date / Time [place] And Derivatives Allergy Unknown Verified 05/22/17 05:43 Home Medications Medication Instructions Recorded Confirmed Last Taken Type levETIRAcetam [Keppra TAB] 750 mg PO BID #60 tablet 06/06/16 06/09/17 2 Days Ago Rx Pnv with Ca,No.72/Iron/FA [Pnv 1 each PO DAILY 02/02/17 06/09/17 2 Days Ago History Plus Multivit Tab] Nitrofurantoin [place]/M-Cryst 100 mg PO Q12HR #20 capsule 02/06/17 06/09/17 09:00 Rx [Macrobid CAP] 1 Active Meds: Active Medications Acetaminophen (Tylenol) 650 mg PO Q4H PRN PRN Reason: Pain MILD(1-3)/Fever >100.5/TORRES Acetaminophen/Hydrocodone Bitart ([place] 5/325) 2 each PO Q6H PRN PRN Reason: Pain, Moderate (4-6) Last Admin: 06/09/17 04:11 Dose: 2 each Bisacodyl (Dulcolax) 10 mg [place] BID PRN PRN Reason: Constipation Diphenhydramine HCl (Benadryl) 25 mg PO Q6H PRN PRN Reason: Itching Docusate Sodium (Colace) 100 mg PO BID [facility] Last Admin: 06/10/17 10:32 Dose: 100 mg Ferrous Sulfate (Feosol) 325 mg PO BID [facility] Last Admin: 06/10/17 10:32 Dose: 325 mg Ibuprofen (Motrin) 600 mg PO Q6H [facility] Last Admin: 06/10/17 05:54 Dose: 600 mg Levetiracetam (Keppra) 750 mg PO BID [facility] Last Admin: 06/10/17 10:32 Dose: 750 mg Magnesium Hydroxide (Milk Of Magnesia) 30 ml PO HS PRN PRN Reason: Constipation Methylergonovine Maleate (Methergine) 0.2 mg PO Q8HR PRN PRN Reason: Bleeding Multi-Ingredient Ointment (Lansinoh) 1 applic TP PRN PRN PRN Reason: Sore Nipples Multivitamins/Iron/Calcium ( Vitamin) 1 each PO QDAY [facility] Last Admin: 06/10/17 10:33 Dose: 1 each Ondansetron HCl (Zofran) 4 mg IV Q8H PRN PRN Reason: Nausea And Vomiting Promethazine HCl (Phenergan) 25 mg [place] Q6H PRN PRN Reason: Nausea And Vomiting Promethazine HCl (Phenergan) 25 mg PO Q6H PRN PRN Reason: Nausea And Vomiting Witch Sarah/Glycerin (Tucks Pad) 1 each TP PRN PRN PRN Reason: Hemorrhoid/cleansing/soothing Review of Systems All systems: negative Constitutional: no weight loss Ears, nose, mouth and throat: no ear pain Breasts: no swelling Cardiovascular: no chest pain Respiratory: no cough Gastrointestinal: no abdominal pain Genitourinary Female: no dyspareunia Rectal: no pain Musculoskeletal: no neck stiffness Integumentary: no rash Neurological: no head injury Psychiatric: no anxiety Endocrine: no cold intolerance Hematologic/Lymphatic: no easy bruising Allergic/Immunologic: no urticaria Exam - Constitutional Vitals: Temp Pulse Resp BP Pulse Ox 98.4 F 79 18 133/79 06/10/17 08:00 06/10/17 08:00 06/10/17 08:00 06/10/17 08:00 General appearance: Present: no acute distress, well-nourished - EENT Eyes: Present: PERRL ENT: hearing intact, clear oral mucosa - Neck Neck: Present: supple, normal ROM - Respiratory Respiratory effort: normal Respiratory: bilateral: CTA - Cardiovascular Heart Sounds: Present: S1 & S2. Absent: rub, click - Extremities Extremities: pulses symmetrical, No edema Peripheral Pulses: within normal limits - Abdominal General gastrointestinal: Present: soft, non-tender, non-distended, normal bowel sounds Female genitourinary: Present: normal - Integumentary Integumentary: Present: clear, warm, dry - Musculoskeletal Musculoskeletal: gait normal, strength equal bilaterally - Psychiatric Psychiatric: appropriate mood/affect, intact judgment & insight - Neurologic Neurologic: CNII-XII intact, moves all extremities Results - Labs CBC & Chem 7: 06/09/17 14:10 Labs: Abnormal lab results 06/09/17 Range/Units 14:10 Hgb 8.4 L (10.1-14.3) gm/dl Hct 26.8 L (30.3-42.9) % Assessment and Plan - Patient Problems (1) Seizure disorder Current Visit: Yes Status: Acute Plan to address problem: Keppra level, Pt counseled regarding use of keppra and . Review of current literature advised "caution", with use. (2) Noncompliance Current Visit: Yes Status: Acute Plan to address problem: Pt counseled,
--- NOTE | 2017-06-10 12:49 | Progress Note ---
Assessment and Plan - Patient Problems (1) Insufficient care Current Visit: Yes Status: Acute Qualifiers: Trimester: T (2) Noncompliance Current Visit: Yes Status: Acute (3) Seizure disorder Current Visit: Yes Status: Acute Plan to address problem: -stable con't keppra (4) Spontaneous vaginal delivery Onset Date: 06/09/17 Current Visit: Yes Status: Acute Plan to address problem: -routine pp care -d/c home in am (5) Marijuana use Current Visit: Yes Status: Acute Plan to address problem: + uds pediatric social worker consulted (6) Barbiturate abuse Current Visit: Yes Status: Acute Plan to address problem: +uds pediatric social worker consulted Subjective - Subjective Date of service: 06/10/17 Principal diagnosis: PPD #1 s/p ;h/o sz d/o Interval history: Pt has not had any seizures since admission or prior to admission. Recommendations note given hospitalist provider. Pt desires to stay until the am at this time. Patient reports: appetite normal, voiding normally, pain well controlled, no dizzy ambulation [place]: doing well, nursing well Objective - Vital Signs Latest vital signs: Vital Signs Temp Pulse Resp BP 06/10/17 08:00 98.4 F 79 18 133/79 06/09/17 23:00 98.6 F 81 16 126/80 06/09/17 16:40 98.7 F 78 16 126/78 Intake and Output 06/09/17 06/10/17 06/10/17 22:59 06:59 14:59 Intake Total 480 850 Balance 480 850 Intake: Oral 480 550 Intake, Free Water 300 Other: Total, Intake Amount 480 300 # Voids Void 1 1 - Exam Breasts: Present: normal Cardiovascular: Present: Normal S1, Normal S2 Lungs: Present: Clear to auscultation, Normal air movement Abdomen: Present: normal appearance, soft, normal bowel sounds. Absent: distention, tenderness, guarding Uterus: Present: normal, firm, fundal height below umbilicus. Absent: bogginess , tenderness Extremities: Present: normal. Absent: tenderness, edema Deep Tendon Reflex Grade: Normal +2 - Labs Labs: Abnormal lab results 06/09/17 Range/Units 14:10 Hgb 8.4 L (10.1-14.3) gm/dl Hct 26.8 L (30.3-42.9) %
[2017-06-10] MEDS: NORCO 5/325 PO PRN ×2 (15:03→21:42)
--- NOTE | 2017-06-10 15:22 | Progress Note ---
Assessment and Plan Assessment and plan: --seizure disorder New episodes of seizure today, seizure precautions, continue antiepileptic medications Supportive care --Medical noncompliance; Counseling done patient strongly advised to adhere to antiseizure medications and seizure precautions Advised not to drive or operate heavy machinery until cleared by primary care physician --Substance abuse; Counseling done patient strongly advised to quit recreational drug use Verbalized understanding --Post care per PAGEANT DIRECTOR --DVT prophylaxis with SCD closely Monitor the patient and adjust the management as needed History Interval history: Patient seen and evaluated in her room in PAGEANT DIRECTOR [place], medical records reviewed No new Events reported by the nursing staff No new episodes of seizures Alert awake oriented 3 , not in acute distress Vital signs reviewed Hospitalist Physical - Constitutional Vitals: Temp Pulse Resp BP Pulse Ox 98.4 F 79 18 133/79 06/10/17 08:00 06/10/17 08:00 06/10/17 08:00 06/10/17 08:00 General appearance: Present: no acute distress, well-nourished - EENT Eyes: Present: PERRL, EOM intact - Neck Neck: Present: supple, normal ROM - Respiratory Respiratory effort: normal Respiratory: negative: rales, rhonchi, wheezing - Cardiovascular Rhythm: regular Heart Sounds: Present: S1 & S2 - Extremities Extremities: no ischemia, pulses intact Peripheral Pulses: within normal limits - Abdominal General gastrointestinal: soft, non-tender, non-distended, normal bowel sounds - Integumentary Integumentary: Present: clear, warm - Psychiatric Psychiatric: appropriate mood/affect, cooperative - Neurologic Neurologic: CNII-XII intact, moves all extremities Results - Labs CBC & Chem 7: 06/09/17 14:10 Labs: Laboratory Last Values WBC 12.1 K/mm3 (4.5-11.0) H 06/09/17 02:34 RBC 4.25 M/mm3 (3.65-5.03) 06/09/17 02:34 Hgb 8.4 gm/dl (10.1-14.3) L 06/09/17 14:10 Hct 26.8 % (30.3-42.9) L 06/09/17 14:10 MCV 65 fl (79-97) L 06/09/17 02:34 MCH 20 pg (28-32) L 06/09/17 02:34 MCHC 31 % (30-34) 06/09/17 02:34 RDW 18.1 % (13.2-15.2) H 06/09/17 02:34 Plt Count 273 K/mm3 (140-440) 06/09/17 02:34 Sickle Cell Screen Negative (Negative) 06/09/17 02:34 Urine Color Yellow (Yellow) 06/09/17 02:34 Urine Turbidity Clear (Clear) 06/09/17 02:34 Urine pH 7.0 (5.0-7.0) 06/09/17 02:34 Ur Specific [place] 1.025 (1.003-1.030) 06/09/17 02:34 Urine Protein 100 mg/dl mg/dL (Negative) 06/09/17 02:34 Urine Glucose (UA) Neg mg/dL (Negative) 06/09/17 02:34 Urine Ketones Tr mg/dL (Negative) 06/09/17 02:34 Urine Blood Sm (Negative) 06/09/17 02:34 Urine Nitrite Neg (Negative) 06/09/17 02:34 Urine Bilirubin Neg (Negative) 06/09/17 02:34 Urine Urobilinogen 2.0 mg/dL (<2.0) 06/09/17 02:34 Ur Leukocyte Esterase Neg (Negative) 06/09/17 02:34 Urine WBC (Auto) 2.0 /HPF (0.0-6.0) 06/09/17 02:34 Urine RBC (Auto) 23.0 /HPF (0.0-6.0) 06/09/17 02:34 U Epithel Cells (Auto) 1.0 /HPF (0-13.0) 06/09/17 02:34 Urine Mucus 2+ /HPF 06/09/17 02:34 Urine Opiates Screen Presumptive negative 06/09/17 02:34 Urine Methadone Screen Presumptive negative 06/09/17 02:34 Ur Barbiturates Screen Presumptive positive 06/09/17 02:34 Ur Phencyclidine Scrn Presumptive negative 06/09/17 02:34 Ur Amphetamines Screen Presumptive negative 06/09/17 02:34 U Benzodiazepines Scrn Presumptive negative 06/09/17 02:34 Urine Cocaine Screen Presumptive negative 06/09/17 02:34 U Marijuana (THC) Screen Presumptive positive 06/09/17 02:34 Drugs of Abuse Note Disclamer 07/21/17 02:34 RPR Nonreactive (Nonreactive) 06/09/17 02:35 Hep Bs Antigen Non-reactive (Negative) 06/09/17 02:34 Hepatitis C Antibody Non-reactive (NonReactive) 06/09/17 02:34 HIV 1&2 Antibody Rapid Non react (Non React) 06/09/17 02:34 HIV P24 Antigen Non react (Non React) 06/09/17 02:34 Rubella IgG Antibody Immune (Immune) 06/09/17 02:34 Blood Type A POSITIVE 06/09/17 02:34 Antibody Screen TNR 06/09/17 02:34 PRADEEP Antibody Screen Negative 06/09/17 02:34
[2017-06-11] MEDS: MOTRIN PO SCH ×2 (00:10→05:35)
--- NOTE | 2017-06-11 12:12 | Progress Note ---
Assessment and Plan Assessment and plan: --seizure disorder no new episodes of seizure since admission seizure precautions, continue antiepileptic medications No driving or operating heavy machinery until cleared by primary care physician --Medical noncompliance; Counseling done patient strongly advised to adhere to antiseizure medications and seizure precautions Advised not to drive or operate heavy machinery until cleared by primary care physician --Substance abuse; Counseling done patient strongly advised to quit recreational drug use Verbalized understanding --Post care per AX SURVEY WORKER --DVT prophylaxis with SCD Patient is medically stable for discharge. She needs to see primary care physician for her medical needs I will sign off Signoff Plan of care discussed with the patient and her nurse History Interval history: Patient seen and evaluated in her room this morning medical records reviewed Patient's nurse is at the bedside, no new events reported No new episodes of seizure, patient has no new complaints Alert awake oriented 3 not in acute distress, vital signs reviewed Hospitalist Physical - Constitutional Vitals: Temp Pulse Resp BP Pulse Ox 98.5 F 76 20 130/82 06/11/17 08:20 06/11/17 08:20 06/11/17 08:20 06/11/17 08:20 General appearance: Present: no acute distress, well-nourished - EENT Eyes: Present: PERRL, EOM intact - Neck Neck: Present: supple, normal ROM - Respiratory Respiratory effort: normal Respiratory: negative: rales, rhonchi, wheezing - Cardiovascular Rhythm: regular Heart Sounds: Present: S1 & S2 - Extremities Extremities: no ischemia, pulses intact, pulses symmetrical - Abdominal General gastrointestinal: soft, non-tender, non-distended, normal bowel sounds - Integumentary Integumentary: Present: clear, warm, dry - Psychiatric Psychiatric: appropriate mood/affect - Neurologic Neurologic: CNII-XII intact, moves all extremities Results - Labs CBC & Chem 7: 06/09/17 14:10 Labs: Laboratory Last Values WBC 12.1 K/mm3 (4.5-11.0) H 06/09/17 02:34 RBC 4.25 M/mm3 (3.65-5.03) 06/09/17 02:34 Hgb 8.4 gm/dl (10.1-14.3) L 06/09/17 14:10 Hct 26.8 % (30.3-42.9) L 06/09/17 14:10 MCV 65 fl (79-97) L 06/09/17 02:34 MCH 20 pg (28-32) L 06/09/17 02:34 MCHC 31 % (30-34) 06/09/17 02:34 RDW 18.1 % (13.2-15.2) H 06/09/17 02:34 Plt Count 273 K/mm3 (140-440) 06/09/17 02:34 Sickle Cell Screen Negative (Negative) 06/09/17 02:34 Urine Color Yellow (Yellow) 06/09/17 02:34 Urine Turbidity Clear (Clear) 06/09/17 02:34 Urine pH 7.0 (5.0-7.0) 06/09/17 02:34 Ur Specific [place] 1.025 (1.003-1.030) 06/09/17 02:34 Urine Protein 100 mg/dl mg/dL (Negative) 06/09/17 02:34 Urine Glucose (UA) Neg mg/dL (Negative) 06/09/17 02:34 Urine Ketones Tr mg/dL (Negative) 06/09/17 02:34 Urine Blood Sm (Negative) 06/09/17 02:34 Urine Nitrite Neg (Negative) 06/09/17 02:34 Urine Bilirubin Neg (Negative) 06/09/17 02:34 Urine Urobilinogen 2.0 mg/dL (<2.0) 06/09/17 02:34 Ur Leukocyte Esterase Neg (Negative) 06/09/17 02:34 Urine WBC (Auto) 2.0 /HPF (0.0-6.0) 06/09/17 02:34 Urine RBC (Auto) 23.0 /HPF (0.0-6.0) 06/09/17 02:34 U Epithel Cells (Auto) 1.0 /HPF (0-13.0) 06/09/17 02:34 Urine Mucus 2+ /HPF 06/09/17 02:34 Urine Opiates Screen Presumptive negative 06/09/17 02:34 Urine Methadone Screen Presumptive negative 06/09/17 02:34 Ur Barbiturates Screen Presumptive positive 06/09/17 02:34 Ur Phencyclidine Scrn Presumptive negative 06/09/17 02:34 Ur Amphetamines Screen Presumptive negative 06/09/17 02:34 U Benzodiazepines Scrn Presumptive negative 06/09/17 02:34 Urine Cocaine Screen Presumptive negative 06/09/17 02:34 U Marijuana (THC) Screen Presumptive positive 06/09/17 02:34 Drugs of Abuse Note Disclamer 06/09/17 02:34 RPR Nonreactive (Nonreactive) 06/09/17 02:35 Hep Bs Antigen Non-reactive (Negative) 06/09/17 02:34 Hepatitis C Antibody Non-reactive (NonReactive) 06/09/17 02:34 HIV 1&2 Antibody Rapid Non react (Non React) 06/09/17 02:34 HIV P24 Antigen Non react (Non React) 06/09/17 02:34 Rubella IgG Antibody Immune (Immune) 06/09/17 02:34 Blood Type A POSITIVE 06/09/17 02:34 Antibody Screen TNR 06/09/17 02:34 PRADEEP Antibody Screen Negative 06/09/17 02:34
--- NOTE | 2017-06-11 13:13 | Discharge Summary ---
Providers - Providers Date of Admission: 06/09/17 02:40 Date of discharge: 06/11/17 Attending physician: JULES TORREZ 06/09/17 02:58 Consult to Physician [CONS] Routine Consulting Provider: ROGE FITZGERALD Reason For Exam: seizures on Keppra Place consult to:: emergency dept Notified:: dept Phone number called:: [phone] Was contact made?: Yes If yes, spoke with:: dr. clement Time called:: 13:48 06/09/17 06:13 Consult to Case Management [CONS] Routine Services Needed at Discharge: [employer] Notified:: yes Phone number called:: [phone] Was contact made?: Yes If yes, spoke with:: saira Additional Physician Instructions: pt positive drug screen limited PNC Primary care physician: BATH ATTENDANT Hospitalization Reason for admission: other (see H&P) Delivery: Procedure details: see delivery note Episiotomy: other (see delivery note) Laceration: other (see delivery note) Other procedures: none [place] baby: female Hospital course: pt admitted s/p . No pp complications. d/c home pp day #2. Pt hospital course was complicated by +UDS. She was seen by hospitalist due to h/o sz d/o but had not had any seizure activity since admission or in recent weeks prior to admission. Condition at discharge: Good Disposition: DC-01 TO HOME OR SELFCARE - Discharge Diagnoses (1) Insufficient care Status: Acute Qualifiers: Trimester: T (2) Noncompliance Status: Acute (3) Seizure disorder Status: Acute (4) Spontaneous vaginal delivery Status: Acute (5) Marijuana use Status: Acute (6) Barbiturate abuse Status: Acute Plan - Provider Discharge Summary Activity: no sex for 6 weeks, no heavy lifting 4 weeks, no strenuous exercise Diet: routine Instructions: routine Additional instructions: [] Smoking cessation referral if applicable(refer to patient education folder for contact #) [] Refer to [facility] Booklet Call your doctor immediately for: * Fever > 100.5 * Heavy vaginal bleeding ( >1 pad per hour) * Severe persistent headache * Shortness of breath * Reddened, hot, painful area to leg or breast * Drainage or odor from incision. * Keep incision clean and dry at all times and follow doctor's instructions regarding bathing/showering - Follow up plan Follow up: PRIMARY CARE,MD [Primary Care Provider] - 6 Weeks
[2017-06-11 17:20] VITALS: BP 124/84
== END 2017-06-11 16:00 | disposition home or self-care (01) | DRG 775 ==
LOC: TRG 01:00 → LD 02:40 → OB 03:52
PROVIDERS: ADMIT Obstetrics & Gynecology; ATTEND Obstetrics & Gynecology
PROC: 10E0XZZ Delivery of Products of Conception, External Approach (ICD-10-PCS; principal; 2017-06-09)
DX: O99.323 Drug use complicating pregnancy, third trimester (principal); G40.909 Epilepsy, unspecified, not intractable, without status epilepticus; O62.3 Precipitate labor; O99.353 Diseases of the nervous system complicating pregnancy, third trimester; O77.0 Labor and delivery complicated by meconium in amniotic fluid; F13.10 Sedative, hypnotic or anxiolytic abuse, uncomplicated; F12.90 Cannabis use, unspecified, uncomplicated; Z3A.39 39 weeks gestation of pregnancy; Z37.0 Single live birth; Z91.018 Allergy to other foods; Z91.048 Other nonmedicinal substance allergy status; Z91.14 Patient's other noncompliance with medication regimen; Z82.49 Family history of ischemic heart disease and other diseases of the circulatory system; Z71.89 Other specified counseling; Z71.51 Drug abuse counseling and surveillance of drug abuser
CPT/HCPCS: 36415; 80177; 80307; 81001; 85014; 85018; 85027; 85660; 86592; 86706; 86762; 86803; 86850; 86900; 86901; 87806; 88307; 99211; G0463; J2210; J2405; J2590; J7120; Q0169

== ENCOUNTER 2017-09-08 17:51 | Emergency (ER) | payer SELFPAY ==
[2017-09-08 18:59] VITALS: BP 114/76
--- NOTE | 2017-09-08 19:04 | Emergency Department Report ---
ED General Adult HPI - General Chief complaint: Seizure Stated complaint: SEIZURES Time Seen by Provider: 09/08/17 19:01 Source: patient Mode of arrival: Ambulatory Limitations: No Limitations - History of Present Illness Initial comments: Patient is a 22-year-old female past medical history of epilepsy who presents with seizure disorder. Patient had a seizure earlier on today she states that she returned to baseline. Patient got 2 mg of Ativan via EMS patient denies being any pain she states that she just had a seizure and she has a lot of these seizures. She denies any shortness of breath any dysuria or any headache since her last seizure was 4 weeks ago which she has a seizure every month. - Related Data Home Medications Medication Instructions Recorded Confirmed Last Taken Pnv,Calcium 72/Iron/Folic Acid 1 each PO DAILY 02/02/17 06/09/17 2 Days Ago [Pnv Plus Multivit Tab] Previous Rx's Medication Instructions Recorded Last Taken Type levETIRAcetam [Keppra TAB] 750 mg PO BID #60 tablet 06/06/16 2 Days Ago Rx Nitrofurantoin [place]/M-Cryst 100 mg PO Q12HR #20 capsule 02/06/17 02/13/17 09:00 Rx [Macrobid CAP] 1 Allergies Allergy/AdvReac Type Severity Reaction Status Date / Time [place] And Derivatives Allergy Unknown Verified 05/22/17 05:43 ED Review of Systems ROS: Stated complaint: SEIZURES Other details as noted in HPI Constitutional: denies: chills, fever Eyes: denies: eye pain, eye discharge, vision change ENT: denies: ear pain, throat pain Respiratory: denies: cough, shortness of breath, wheezing Cardiovascular: denies: chest pain, palpitations Endocrine: no symptoms reported Gastrointestinal: denies: abdominal pain, nausea, diarrhea Genitourinary: denies: urgency, dysuria, discharge Musculoskeletal: denies: back pain, joint swelling, arthralgia Skin: denies: rash, lesions Neurological: other (seizures). denies: headache, weakness, paresthesias Psychiatric: denies: anxiety, depression Hematological/Lymphatic: denies: easy bleeding, easy bruising ED Past Medical Hx - Past Medical History Previous Medical History?: Yes Hx Hypertension: No Hx Congestive Heart Failure: No Hx Diabetes: No Hx Deep Vein Thrombosis: No Hx Sickle Cell Disease: No Hx Seizures: Yes Hx Asthma: No Hx COPD: No Hx HIV: No - Surgical History Past Surgical History?: No - Social History Smoking Status: Current Every Day Smoker Substance Use Type: Marijuana - Medications Home Medications: Home Medications Medication Instructions Recorded Confirmed Last Taken Type levETIRAcetam [Keppra TAB] 750 mg PO BID #60 tablet 06/06/16 06/09/17 2 Days Ago Rx Pnv,Calcium 72/Iron/Folic Acid 1 each PO DAILY 02/02/17 06/09/17 2 Days Ago History [Pnv Plus Multivit Tab] Nitrofurantoin [place]/M-Cryst 100 mg PO Q12HR #20 capsule 02/06/17 06/09/17 09:00 Rx [Macrobid CAP] 1 ED Physical Exam - General Limitations: No Limitations General appearance: alert, in no apparent distress - Head Head exam: Present: atraumatic, normocephalic - Eye Eye exam: Present: normal appearance - ENT ENT exam: Present: mucous membranes moist - Neck Neck exam: Present: normal inspection - Respiratory Respiratory exam: Present: normal lung sounds bilaterally. Absent: respiratory distress - Cardiovascular Cardiovascular Exam: Present: regular rate, normal rhythm. Absent: systolic murmur, diastolic murmur, rubs, gallop - GI/Abdominal GI/Abdominal exam: Present: soft, normal bowel sounds - Extremities Exam Extremities exam: Present: normal inspection - Back Exam Back exam: Present: normal inspection - Neurological Exam Neurological exam: Present: alert, oriented X3 - Psychiatric Psychiatric exam: Present: normal affect, normal mood - Skin Skin exam: Present: warm, dry, intact, normal color. Absent: rash ED Course Vital Signs 09/08/17 18:54 Temperature 97.1 F L Pulse Rate 101 H Respiratory 29 H Rate Blood Pressure 114/76 O2 Sat by Pulse 97 Oximetry ED Medical Decision Making - Medical Decision Making Chief medical diagnosis: Epilepsy Differential medical diagnosis: Medication noncompliance, sleep deprivation I will get CBC, CMP, urinalysis, urine Patient is refusing blood work and labs she is refusing a urinalysis. Discussed with patient and she states that she has seizure disorder and she doesn't want any medications. I will send the patient home and arrived with shared decision making with the patient. She states that she has an appointment with her neurologist in 2 weeks and does not need a refill on Keppra. Based on this patient is non-drowsy and is able to ambulate I will send patient home with follow-up with neurologist. Additional verbal discharge instructions were given patient agrees the plan. Critical care attestation.: If time is entered above; I have spent that time in minutes in the direct care of this critically ill patient, excluding procedure time. ED Disposition Clinical Impression: Seizures Disposition: DC-01 TO HOME OR SELFCARE Is pt being admited?: No Does the pt Need Aspirin: No Condition: Stable Instructions: Epilepsy (ED) Referrals: PRIMARY CARE, [Primary Care Provider] - 3-5 Days
== END 2017-09-08 20:22 | disposition home or self-care (01) ==
LOC: ED 17:51
DX: G40.909 Epilepsy, unspecified, not intractable, without status epilepticus (principal); F17.210 Nicotine dependence, cigarettes, uncomplicated; F12.10 Cannabis abuse, uncomplicated; Z91.018 Allergy to other foods
CPT/HCPCS: 99283

== ENCOUNTER 2017-10-01 21:41 | Emergency (ER) | payer SELFPAY ==
[2017-10-01] MEDS ORDERED: KEPPRA 1,000 MG/NS 0.75% 100ML 1,000 MG/100 ML BAG IV ONE (22:00)
[2017-10-01] MEDS ORDERED: KEPPRA PO ONE (22:26)
[2017-10-01] MEDS ORDERED: TORADOL IV ONE (22:26)
--- NOTE | 2017-10-01 22:29 | Emergency Department Report ---
ED Seizure HPI - General Chief Complaint: Seizure Stated Complaint: SEIZURE Time Seen by Provider: 10/01/17 21:59 Source: EMS, old records reviewed (last head CT one record is from May 2016 and normal. Patient here in August for seizures) Mode of arrival: Stretcher Limitations: No Limitations - History of Present Illness Initial Comments: 22-year-old female with a past medical history seizures noncompliant with her Keppra for 2-3 days presented to the hospital with 2 seizures tonight. Patient received 2 mg of Ativan prior to arrival and was initially lethargic. Patient is now alert and oriented 3 and concerned about her children and wants the leave the department without further evaluation. She has complaints of chronic moderate headache with associated mild memory deficits. Headache worsen after seizures and complains of vaginal bleeding for 3 weeks. Patient refuses further workup at this time including lab work, urine collection, CT head, or IV Keppra. Patient is agreeable to receiving by mouth Keppra and IV Toradol prior to leaving with a prescription. At this - Related Data Home Medications Medication Instructions Recorded Confirmed Last Taken Pnv,Calcium 72/Iron/Folic Acid 1 each PO DAILY 02/02/17 06/09/17 2 Days Ago [Pnv Plus Multivit Tab] Previous Rx's Medication Instructions Recorded Last Taken Type Nitrofurantoin [place]/M-Cryst 100 mg PO Q12HR #20 capsule 02/06/17 02/13/17 09:00 Rx [Macrobid CAP] 1 levETIRAcetam [Keppra TAB] 750 mg PO BID #60 tablet 10/01/17 Unknown Rx Allergies Allergy/AdvReac Type Severity Reaction Status Date / Time [place] And Derivatives Allergy Unknown Verified 10/01/17 21:43 ED Review of Systems ROS: Stated complaint: SEIZURE Other details as noted in HPI Comment: All other systems reviewed and negative Other: Constitutional: No fevers chills Eyes: No eye pain visual changes ENT: No ear pain or throat pain Neck: Denies pain Respiratory: Denies cough wheezing shortness of breath Cardiovascular: Denies chest pain, palpitations, syncope GI: Denies abdominal pain, nausea, vomiting, diarrhea : Denies dysuria. Vaginal bleeding 3 week Musculoskeletal: Denies back pain, joint swelling Skin: Denies rash, lesions, erythema Neurologic: + christian, seizure Psychiatric: Denies suicidal ideation, hallucinations ED Past Medical Hx - Past Medical History Previous Medical History?: Yes Hx Hypertension: No Hx Congestive Heart Failure: No Hx Diabetes: No Hx Deep Vein Thrombosis: No Hx Sickle Cell Disease: No Hx Seizures: Yes Hx Asthma: No Hx COPD: No Hx HIV: No - Surgical History Past Surgical History?: No - Social History Smoking Status: Unknown if ever smoked - Medications Home Medications: Home Medications Medication Instructions Recorded Confirmed Last Taken Type Pnv,Calcium 72/Iron/Folic Acid 1 each PO DAILY 02/02/17 06/09/17 2 Days Ago History [Pnv Plus Multivit Tab] Nitrofurantoin [place]/M-Cryst 100 mg PO Q12HR #20 capsule 02/06/17 06/09/17 09:00 Rx [Macrobid CAP] 1 levETIRAcetam [Keppra TAB] 750 mg PO BID #60 tablet 10/01/17 Unknown Rx ED Physical Exam - General Limitations: No Limitations - Other Other exam information: General: No limitations, patient is alert in no acute distress Head exam: Atraumatic, normocephalic Eyes exam: Normal appearance, pupils equal reactive to light, extraocular movements intact ENT: Moist mucous membrane, normal oropharynx Neck exam: Normal inspection, full range of motion, no meningismus nontender Respiratory exam: Clear to auscultation bilateral, no wheezes, rales, crackles Cardiovascular: Normal rate and rhythm, normal heart sounds Abdomen: Soft, nondistended, and nontender, with normal bowel sounds, no rebound, or guarding Extremity: Full range of motion normal inspection no deformity Back: Normal Inspection, full range of motion, no tenderness Neurologic: Alert, oriented x3, cranial nerves intact, no motor or sensory deficit Psychiatric: Patient anxious to leave the department to check on her children because no one is answer the phone at her home Skin: Warm, dry, intact ED Course Vital Signs 10/01/17 10/01/17 22:41 22:42 Temperature 98.8 F Pulse Rate 90 Respiratory 18 18 Rate Blood Pressure 128/84 [Left] O2 Sat by Pulse 100 100 Oximetry ED Medical Decision Making - Medical Decision Making Offered CT head, labs to evaluate for anemia, and IV Keppra. Patient refused all further ED workup she wants to go home and check on her children. Patient provided with IV Toradol and by mouth prior to signing out. Explained that I cannot rule out intracranial lesion/bleeding, anemia requiring blood transfusion without further labs. Also explain she is at risk of further seizures she continues to be noncompliant with her Keppra. Patient received Ativan prior to arrival but is currently alert and oriented 3 without any signs of lethargy. Vital signs normal. Accu-Chek is 92 - Differential Diagnosis ICH, seizures, medication noncompliance, anemia, allegedly abnormality Critical Care Time: No Critical care attestation.: If time is entered above; I have spent that time in minutes in the direct care of this critically ill patient, excluding procedure time. ED Disposition Clinical Impression: Seizure, Noncompliance with medication regimen Disposition: LEFT AGAINST MED ADVICE Is pt being admited?: No Condition: Stable Instructions: Recurrent Seizures Adult (ED) Additional Instructions: You have refused CAT scan of your head, laboratory evaluation, and IV treatment for her seizures and therefore you're signing out against medical advice. You have been prescribed a prescription of Keppra. Prescriptions: levETIRAcetam [Keppra TAB] 750 mg PO BID #60 tablet Referrals: DEN HERRERA MD [Staff Physician] - 3-5 Days FAWAD CRABTREE MD [Staff Physician] - 3-5 Days (Neurolgy ) Forms: AMA Form Time of Disposition: 22:46 (ama after she received meds)
[2017-10-01 22:43] VITALS: BP 128/84
== END 2017-10-01 22:59 | disposition left against medical advice (07) ==
LOC: ED 21:41
DX: R56.9 Unspecified convulsions (principal); R51 Headache; Z91.14 Patient's other noncompliance with medication regimen; Z91.018 Allergy to other foods
CPT/HCPCS: 82962; 96374; 99284; J1885

== ENCOUNTER 2017-10-17 11:47 | Emergency (ER) | payer OTHER ==
[2017-10-17 11:55] VITALS: BP 132/74
[2017-10-17 12:26] LABS: Basophils % (Auto) 0.7 % (0.0-1.8); Eosinophils % (Auto) 1.8 % (0.0-4.3); Hematocrit 39.9 % (30.3-42.9); Hemoglobin 12.9 gm/dl (10.1-14.3); Mean Corpuscular HGB Conc 32 % (30-34); Mean Corpuscular Volume 80 fl (79-97); Platelet Count 269 K/mm3 (140-440); Red Blood Count 5.01 M/mm3 (3.65-5.03); Red Cell Distribution Width 14.3 % (13.2-15.2); White Blood Count 8.7 K/mm3 (4.5-11.0)
[2017-10-17 12:28] LABS: Mean Corpuscular Hemoglobin 26 pg (28-32)
[2017-10-17 12:41] LABS: Anion Gap 23 mmol/L; BUN/Creatinine Ratio 13; Blood Urea Nitrogen 9 mg/dL (7-17); Calcium 9.2 mg/dL (8.4-10.2); Carbon Dioxide 21 mmol/L (22-30); Chloride 101.2 mmol/L (98-107); Glucose 99 mg/dL (65-100); Potassium 3.8 mmol/L (3.6-5.0); Sodium 141 mmol/L (137-145)
--- NOTE | 2017-10-17 14:51 | Ultrasound Report ---
Transvaginal and transabdominal pelvic ultrasound. History: Dystocia uterine bleeding. Findings: There is no evidence of focal uterine mass. The endometrial echo is mildly thickened at 1.4 cm. There is mild heterogeneous appearance of the endometrial echo. No fluid is seen within the endometrial cavity. The ovaries are normal in size and configuration. No abnormal fluid collections are seen within the pelvis. Impression: Minimally thickened heterogeneous endometrium with no other focal findings.
--- NOTE | 2017-10-17 18:16 | Emergency Department Report ---
ED Female HPI - General Chief complaint: Vaginal Bleeding Stated complaint: VAGINAL BLEEDING Time Seen by Provider: 10/17/17 18:03 Source: patient Mode of arrival: Ambulatory Limitations: No Limitations - History of Present Illness Initial comments: Patient with vaginal delivery 06/09/17. She has had bleeding since that time. No F/C. Also has felt anorexic as well. Complaint: vaginal bleeding -: Gradual, month(s) (4) Radiation: non-radiating Severity: mild Severity scale (0 -10): 2 Quality: cramping (none) Consistency: constant Improves with: none Worsens with: none Are you Now?: No Associated Symptoms: denies other symptoms - Related Data Home Medications Medication Instructions Recorded Confirmed Last Taken Pnv,Calcium 72/Iron/Folic Acid 1 each PO DAILY 02/02/17 06/09/17 2 Days Ago [Pnv Plus Multivit Tab] ~06/07/17 Previous Rx's Medication Instructions Recorded Last Taken Type Nitrofurantoin [place]/M-Cryst 100 mg PO Q12HR #20 capsule 02/06/17 02/13/17 09:00 Rx [Macrobid CAP] 1 levETIRAcetam [Keppra TAB] 750 mg PO BID #60 tablet 10/01/17 Unknown Rx Ondansetron [Zofran TAB] 4 mg PO Q8HR PRN #30 tablet 10/17/17 Unknown Rx Allergies Allergy/AdvReac Type Severity Reaction Status Date / Time [place] And Derivatives Allergy Unknown Verified 10/17/17 11:51 ED Review of Systems ROS: Stated complaint: VAGINAL BLEEDING Other details as noted in HPI Constitutional: denies: chills, fever Eyes: denies: eye pain, eye discharge, vision change ENT: denies: ear pain, throat pain Respiratory: denies: cough, shortness of breath, wheezing Cardiovascular: denies: chest pain, palpitations Endocrine: no symptoms reported Gastrointestinal: denies: abdominal pain, nausea, diarrhea Genitourinary: denies: urgency, dysuria, discharge Musculoskeletal: denies: back pain, joint swelling, arthralgia Skin: denies: rash, lesions Neurological: denies: headache, weakness, paresthesias Psychiatric: denies: anxiety, depression Hematological/Lymphatic: denies: easy bleeding, easy bruising ED Past Medical Hx - Past Medical History Hx Hypertension: No Hx Congestive Heart Failure: No Hx Diabetes: No Hx Deep Vein Thrombosis: No Hx Sickle Cell Disease: No Hx Seizures: Yes Hx Asthma: No Hx COPD: No Hx HIV: No - Surgical History Past Surgical History?: No - Social History Smoking Status: Current Every Day Smoker - Medications Home Medications: Home Medications Medication Instructions Recorded Confirmed Last Taken Type Pnv,Calcium 72/Iron/Folic Acid 1 each PO DAILY 02/02/17 06/09/17 2 Days Ago History [Pnv Plus Multivit Tab] ~06/07/17 Nitrofurantoin [place]/M-Cryst 100 mg PO Q12HR #20 capsule 02/06/17 06/09/17 09:00 Rx [Macrobid CAP] 1 levETIRAcetam [Keppra TAB] 750 mg PO BID #60 tablet 10/01/17 Unknown Rx Ondansetron [Zofran TAB] 4 mg PO Q8HR PRN #30 tablet 10/17/17 Unknown Rx ED Physical Exam - General Limitations: No Limitations General appearance: alert, in no apparent distress - Head Head exam: Present: atraumatic, normocephalic - Eye Eye exam: Present: normal appearance - ENT ENT exam: Present: mucous membranes moist - Neck Neck exam: Present: normal inspection - Respiratory Respiratory exam: Present: normal lung sounds bilaterally. Absent: respiratory distress - Cardiovascular Cardiovascular Exam: Present: regular rate, normal rhythm. Absent: systolic murmur, diastolic murmur, rubs, gallop - GI/Abdominal GI/Abdominal exam: Present: soft, normal bowel sounds - Extremities Exam Extremities exam: Present: normal inspection - Back Exam Back exam: Present: normal inspection - Neurological Exam Neurological exam: Present: alert, oriented X3 - Psychiatric Psychiatric exam: Present: normal affect, normal mood - Skin Skin exam: Present: warm, dry, intact, normal color. Absent: rash ED Course Vital Signs 10/17/17 11:51 Temperature 98.5 F Pulse Rate 102 H Respiratory 18 Rate Blood Pressure 132/74 O2 Sat by Pulse 98 Oximetry ED Medical Decision Making - Lab Data Result diagrams: 10/17/17 11:58 10/17/17 12:06 - Radiology Data Radiology results: report reviewed Thickened endometrium but otherwise unremarkable. - Medical Decision Making Patient not anemic and other labs normal. She has nausea and anorexia but no other signs of post- depression. She did miss her F/U OB appointment. She needs to go to OB and follow up with them for the thickened endometrium. Will give zofran for nausea. Critical care attestation.: If time is entered above; I have spent that time in minutes in the direct care of this critically ill patient, excluding procedure time. ED Disposition Clinical Impression: Vaginal bleeding Nausea & vomiting Qualifiers: Vomiting type: unspecified Vomiting Intractability: non-intractable Qualified Code(s): R11.2 - Nausea with vomiting, unspecified Disposition: DC- TO HOME OR SELFCARE Is pt being admited?: No Does the pt Need Aspirin: No Condition: Good Instructions: Acute Nausea and Vomiting (ED) Prescriptions: Ondansetron [Zofran TAB] 4 mg PO Q8HR PRN #30 tablet PRN Reason: Nausea Referrals: HOWARD CRABTREE MD [Staff Physician] - 3-5 Days Time of Disposition: 18:18
== END 2017-10-17 18:37 | disposition home or self-care (01) ==
LOC: ED 11:47
DX: N93.9 Abnormal uterine and vaginal bleeding, unspecified (principal); R11.2 Nausea with vomiting, unspecified; F17.200 Nicotine dependence, unspecified, uncomplicated; Z91.018 Allergy to other foods
CPT/HCPCS: 36415; 76830; 76856; 80048; 84702; 85025; 86850; 86900; 86901; 99284

== ENCOUNTER 2018-04-07 00:27 | Emergency (ER) | payer SELFPAY | END 2018-04-07 00:59 | disposition left against medical advice (07) | LOC: ED 00:27 | DX: R56.9 Unspecified convulsions (principal); Z53.21 Procedure and treatment not carried out due to patient leaving prior to being seen by health care provider ==

== ENCOUNTER 2018-06-12 11:30 | Emergency (ER) | payer SELFPAY ==
[2018-06-12 12:35] LABS: HCG Qualitative,Urine Positive (Negative)
[2018-06-12 12:38] LABS: Bacteria,Urine 1+ /HPF (Negative); Bilirubin,Urine NEG (Negative); Blood,Urine NEG (Negative); Color,Urine Yellow (Yellow); Mucus,Urine 3+ /HPF; Protein,Urine <15 mg/dL mg/dL (Negative)
--- NOTE | 2018-06-12 12:46 | Emergency Department Report ---
ED Female HPI - General Chief complaint: Abdominal Pain Stated complaint: BELLY PAIN/VOMIT Time Seen by Provider: 06/12/18 12:31 Source: patient Mode of arrival: Ambulatory Limitations: No Limitations - History of Present Illness Initial comments: This is a 22 -year-old -[place] female presents with abdominal pain and low back pain for one week. Patient states she is having nausea and vomiting for the past 2 weeks. Patient states she vomited this morning and the nausea and vomiting has resolved. She is having some pain and pressure in suprapbuic area radiating to vagina. She is currently not taking medication for symptoms. Unsure of last menstrual period, she believes it was Apr 12 2018. Reports she is late according to [employer]. A0. Denies vaginal bleeding, vaginal discharge, frequency, urgency, dysuria, fever, and chest pain. Onset/Timin -: week(s) Location: suprapubic Radiation: non-radiating Severity: moderate Severity scale (0 -10): 3 Quality: cramping Consistency: intermittent Improves with: none Worsens with: none Are you Now?: No Last Menstrual Period: 05/13/18 EDC: 02/17/19 Associated Symptoms: abdominal pain, nausea/vomiting. denies: vaginal discharge , vaginal bleeding, fever/chills, headaches, loss of appetite, dysuria, hematuria, rash, seizure, shortness of breath, syncope, weakness - Related Data Sexually active: Yes : 5 Para: 4 A: 0 Home Medications Medication Instructions Recorded Confirmed Last Taken Pnv,Calcium 72/Iron/Folic Acid 1 each PO DAILY 02/02/17 06/09/17 2 Days Ago [Pnv Plus Multivit Tab] ~06/07/17 Previous Rx's Medication Instructions Recorded Last Taken Type Nitrofurantoin [place]/M-Cryst 100 mg PO Q12HR #20 capsule 02/06/17 02/13/17 09:00 Rx [Macrobid CAP] 1 levETIRAcetam [Keppra TAB] 750 mg PO BID #60 tablet 10/01/17 Unknown Rx Ondansetron [Zofran TAB] 4 mg PO Q8HR PRN #30 tablet 10/17/17 Unknown Rx Eye125/Iron/Folic/Dha 1 each PO DAILY #30 capsule 06/12/18 Unknown Rx [ Formula-Dha Softgel] Allergies Allergy/AdvReac Type Severity Reaction Status Date / Time [place] And Derivatives Allergy Unknown Verified 04/07/18 00:48 ED Review of Systems ROS: Stated complaint: BELLY PAIN/VOMIT Other details as noted in HPI Constitutional: denies: chills, fever Respiratory: denies: cough, shortness of breath, wheezing Cardiovascular: denies: chest pain, palpitations Gastrointestinal: abdominal pain (suprapubic pain), nausea, vomiting. denies: diarrhea, hematochezia Genitourinary: denies: urgency, dysuria, frequency, hematuria, discharge, abnormal menses, dyspareunia Musculoskeletal: denies: back pain, joint swelling, arthralgia Neurological: denies: headache, weakness, paresthesias Psychiatric: denies: anxiety, depression ED Past Medical Hx - Past Medical History Previous Medical History?: Yes Hx Hypertension: No Hx Congestive Heart Failure: No Hx Diabetes: No Hx Deep Vein Thrombosis: No Hx Sickle Cell Disease: No Hx Seizures: Yes Hx Asthma: No Hx COPD: No Hx HIV: No - Surgical History Past Surgical History?: No - Social History Smoking Status: Former Smoker Substance Use Type: None - Medications Home Medications: Home Medications Medication Instructions Recorded Confirmed Last Taken Type Pnv,Calcium 72/Iron/Folic Acid 1 each PO DAILY 02/02/17 06/09/17 2 Days Ago History [Pnv Plus Multivit Tab] ~06/07/17 Nitrofurantoin [place]/M-Cryst 100 mg PO Q12HR #20 capsule 02/06/17 06/09/17 09:00 Rx [Macrobid CAP] 1 levETIRAcetam [Keppra TAB] 750 mg PO BID #60 tablet 10/01/17 Unknown Rx Ondansetron [Zofran TAB] 4 mg PO Q8HR PRN #30 tablet 10/17/17 Unknown Rx [id number]/Iron/Folic/Dha 1 each PO DAILY #30 capsule 06/12/18 Unknown Rx [ Formula-Dha Softgel] ED Physical Exam - General Limitations: No Limitations General appearance: alert, in no apparent distress - Respiratory Respiratory exam: Present: normal lung sounds bilaterally. Absent: respiratory distress - Cardiovascular Cardiovascular Exam: Present: regular rate, normal rhythm. Absent: systolic murmur, diastolic murmur, rubs, gallop - GI/Abdominal GI/Abdominal exam: Present: soft, normal bowel sounds. Absent: organomegaly, mass - Back Exam Back exam: Present: normal inspection. Absent: CVA tenderness (R), CVA tenderness (L) - Neurological Exam Neurological exam: Present: alert, oriented X3 - Psychiatric Psychiatric exam: Present: normal affect, normal mood ED Course Vital Signs 06/12/18 06/12/18 11:32 15:15 Temperature 98.7 F 98.5 F Pulse Rate 114 H 92 H Respiratory 18 20 Rate Blood Pressure 149/81 Blood Pressure 138/82 [Left] O2 Sat by Pulse 99 98 Oximetry ED Medical Decision Making - Lab Data Lab Results 06/12/18 06/12/18 Range/Units 11:49 13:15 HCG, Quant 6695 H (0-4) mIU/mL Urine Color Yellow (Yellow) Urine Turbidity Clear (Clear) Urine pH 5.0 (5.0-7.0) Ur Specific [place] 1.027 (1.003-1.030) Urine Protein <15 mg/dl (Negative) mg/dL Urine Glucose (UA) Neg (Negative) mg/dL Urine Ketones Neg (Negative) mg/dL Urine Blood Neg (Negative) Urine Nitrite Neg (Negative) Ur Reducing Substances Not Reportable Urine Bilirubin Neg (Negative) Urine Ictotest Not Reportable Urine Urobilinogen 2.0 (<2.0) mg/dL Ur Leukocyte Esterase Neg (Negative) Urine WBC (Auto) 3.0 (0.0-6.0) /HPF Urine RBC (Auto) 3.0 (0.0-6.0) /HPF U Epithel Cells (Auto) 9.0 (0-13.0) /HPF Urine Bacteria (Auto) 1+ (Negative) /HPF Urine Mucus 3+ /HPF Urine HCG, Qual Positive A (Negative) - Radiology Data Radiology results: report reviewed ULTRASOUND OB LESS THAN 14 WEEKS FETUS ULTRASOUND OB TRANSVAGINAL HISTORY: Nausea and vomiting during . COMPARISON: None. TECHNIQUE: Transabdominal and transvaginal ultrasound with color doppler interrogation. FINDINGS: Uterus: 9.2 x 6.0 x 7.5 cm. No uterine mass is identified. Normal cervix. Endometrium: An intrauterine gestational sac is identified. No convincing pole or yolk sac is identified at this time. No heart rate could be detected. Average diameter of the gestational sac measures 9 mm which correlates with a 5 week 5 day . There appears to be a small subchorionic hemorrhage along the superior border of the gestational sac Right ovary: 3.8 x 2.5 x 3.4 cm. There is a 2 cm complex area in the right ovary consistent with a corpus luteum cyst. Left ovary: 2.7 x 1.6 x 2.8 cm. No focal abnormality. No pelvic fluid or mass is identified. Normal color doppler interrogation. IMPRESSION: An empty gestational sac is noted in the endometrial canal. This could represent a normal very early . Blighted ovum is not excluded. Close interval followup is recommended. Small subchorionic hemorrhage. - Medical Decision Making This is a 22 y.o. female presents with nausea and vomiting, abdominal pain for 2 days. Patient was examined by me. Heart rate elevated on arrival will reevaluate prior to discharge. Patient is in no acute distress. Obtained a urinalysis, urine hcg, and transvaginal and OB US. The ultrasound was dictated by radiologist. An empty gestational sac is noted in the endometrial canal. This could represent a normal very early . Blighted ovum is not excluded. Close interval followup is recommended. Small subchorionic hemorrhage. Urine 6695, positive urine hcg, and normal urinalysis. Vitals normal on reevaluation. Patient informed of results. Confirmed . Follow-up with [facility]. Patient given referrals to discharge. Critical care attestation.: If time is entered above; I have spent that time in minutes in the direct care of this critically ill patient, excluding procedure time. ED Disposition Clinical Impression: Nausea and vomiting in adult, confirmed by positive blood test, Abdominal cramping Disposition: DC-01 TO HOME OR SELFCARE Is pt being admited?: No Does the pt Need Aspirin: No Condition: Stable Instructions: Abdominal Pain (ED), (ED), Morning Sickness (ED) Additional Instructions: Start vitamins daily. Follow up with [facility] MANAGEMENT CONS[facility] in 2-5 days. Return to ER is sharp abdominal pain accompanied by vaginal bleeding. Prescriptions: [id number]/Iron/Folic/Dha [ Formula-Dha Softgel] 1 each PO DAILY # 30 capsule Referrals: [facility] [Provider Group] - 3-5 Days [facility] [Provider Group] - 3-5 Days [facility] [Provider Group] - 3-5 Days Time of Disposition: 15:08 Print Language: GABONESE
--- NOTE | 2018-06-12 14:21 | Ultrasound Report ---
ULTRASOUND OB LESS THAN 14 WEEKS FETUS ULTRASOUND OB TRANSVAGINAL HISTORY: Nausea and vomiting during . COMPARISON: None. TECHNIQUE: Transabdominal and transvaginal ultrasound with color doppler interrogation. FINDINGS: Uterus: 9.2 x 6.0 x 7.5 cm. No uterine mass is identified. Normal cervix. Endometrium: An intrauterine gestational sac is identified. No convincing pole or yolk sac is identified at this time. No heart rate could be detected. Average diameter of the gestational sac measures 9 mm which correlates with a 5 week 5 day . There appears to be a small subchorionic hemorrhage along the superior border of the gestational sac Right ovary: 3.8 x 2.5 x 3.4 cm. There is a 2 cm complex area in the right ovary consistent with a corpus luteum cyst. Left ovary: 2.7 x 1.6 x 2.8 cm. No focal abnormality. No pelvic fluid or mass is identified. Normal color doppler interrogation. IMPRESSION: An empty gestational sac is noted in the endometrial canal. This could represent a normal very early . Blighted ovum is not excluded. Close interval followup is recommended. Small subchorionic hemorrhage.
[2018-06-12 15:17] VITALS: BP 138/82
== END 2018-06-12 15:17 | disposition home or self-care (01) ==
LOC: ED 11:30
DX: O26.891 Other specified pregnancy related conditions, first trimester (principal); M54.5 Low back pain; R11.2 Nausea with vomiting, unspecified; Z3A.01 Less than 8 weeks gestation of pregnancy; Z91.018 Allergy to other foods; Z87.891 Personal history of nicotine dependence
CPT/HCPCS: 36415; 76801; 76817; 81001; 81025; 84702

== ENCOUNTER 2018-08-01 01:09 | Emergency (ER) | payer SELFPAY ==
[2018-08-01 01:17] VITALS: BP 126/71
[2018-08-01 02:29] LABS: Basophils % (Auto) 0.3 % (0.0-1.8); Eosinophils # (Auto) 0.2 K/mm3 (0.0-0.4); Eosinophils % (Auto) 1.8 % (0.0-4.3); Hematocrit 31.2 % (30.3-42.9); Hemoglobin 10.1 gm/dl (10.1-14.3); Lymphocytes # (Auto) 2.3 K/mm3 (1.2-5.4); Lymphocytes % (Auto) 24.7 % (13.4-35.0); Mean Corpuscular HGB Conc 33 % (30-34); Mean Corpuscular Volume 75 fl (79-97); Monocytes # (Auto) 0.8 K/mm3 (0.0-0.8); Monocytes % (Auto) 8.9 % (0.0-7.3); Platelet Count 288 K/mm3 (140-440); Red Blood Count 4.18 M/mm3 (3.65-5.03); Red Cell Distribution Width 16.4 % (13.2-15.2)
[2018-08-01 02:42] LABS: Mean Corpuscular Hemoglobin 24 pg (28-32)
== END 2018-08-01 03:00 | disposition left against medical advice (07) ==
LOC: ED 01:09
DX: O20.9 Hemorrhage in early pregnancy, unspecified (principal); Z3A.14 14 weeks gestation of pregnancy; Z53.21 Procedure and treatment not carried out due to patient leaving prior to being seen by health care provider
CPT/HCPCS: 36415; 84702; 85025; 86850; 86900; 86901

== ENCOUNTER 2018-08-05 11:21 | Emergency (ER) | payer SELFPAY ==
[2018-08-05 11:34] VITALS: BP 106/64
[2018-08-05] MEDS ORDERED: REGLAN IV ONE (12:40)
--- NOTE | 2018-08-05 12:47 | Emergency Department Report ---
Vomiting/Diarrhea - HPI Chief Complaint: Nausea/Vomiting/Diarrhea Stated Complaint: WEAKNESS/VOMITING/[id number] Time Seen by Provider: 08/05/18 12:26 Duration: 2 Days Severity: mild Nausea/Vomiting Severity: Moderate Diarrhea Severity: Mild Pain Location: Generalized (crampy) Pain Severity: Mild Symptoms: Yes Watery Diarrhea, Yes Family w/ Similar Symptoms (her son), No Bloody diarrhea, No Fever, No Able to Tolerate Fluids, No Recent Unusual Foods, No Recent Untreated Water, No Recent use of Antibiotics, No Contacts w/ Similar Symptoms, No Rash, No Hematuria, No Recent URI Symptoms ED Review of Systems ROS: Stated complaint: WEAKNESS/VOMITING/[id number] Other details as noted in HPI Comment: All other systems reviewed and negative ED Past Medical Hx - Past Medical History Hx Hypertension: No Hx Congestive Heart Failure: No Hx Diabetes: No Hx Deep Vein Thrombosis: No Hx Sickle Cell Disease: No Hx Seizures: Yes (epilepsy) Hx Asthma: No Hx COPD: No Hx HIV: No - Social History Smoking Status: Never Smoker Substance Use Type: None - Medications Home Medications: Home Medications Medication Instructions Recorded Confirmed Last Taken Type Pnv,Calcium 72/Iron/Folic Acid 1 each PO DAILY 02/02/17 06/09/17 2 Days Ago History [Pnv Plus Multivit Tab] ~06/07/17 Nitrofurantoin [place]/M-Cryst 100 mg PO Q12HR #20 capsule 02/06/17 06/09/17 09:00 Rx [Macrobid CAP] 1 levETIRAcetam [Keppra TAB] 750 mg PO BID #60 tablet 10/01/17 Unknown Rx Ondansetron [Zofran TAB] 4 mg PO Q8HR PRN #30 tablet 10/17/17 Unknown Rx [id number]/Iron/Folic/Dha 1 each PO DAILY #30 capsule 06/12/18 Unknown Rx [ Formula-Dha Softgel] Metoclopramide [Reglan] 10 mg PO TID PRN #20 tab 08/05/18 Unknown Rx Vomiting Diarrhea Exam - Exam General: Vital signs noted. No distress. Alert and acting appropriately. HEENT: Yes Moist Mucous Membranes, No Pharyngeal Erythema, No Pharyngeal Exudates, No Rhinorrhea, No Conjuctival Injection, No Frontal Tenderness, No Maxillary Tenderness Neck: No Adenopathy, No Rigidity Lungs: Yes Clear Lung Sounds, Yes Good Air Exchange, No Wheezes, No Stridor, No Cough, No Nasal Flaring, No Retractions, No Use of Accessory Muscles Heart exam: Regular: Yes, Murmur: No, Tachycardia: No Abdomen: Tenderness: No, Peritoneal Signs: No, Distention: No, Hyperactive Bowel sounds: No Skin exam: Rash: No, Edema: No, Normal turgor: Yes Neurologic: Alert and oriented, no deficits. Musculoskeletal: Unremarkable. ED Course Vital Signs 08/05/18 11:31 Temperature 97.8 F Pulse Rate 89 Respiratory 16 Rate Blood Pressure 106/64 O2 Sat by Pulse 100 Oximetry ED Medical Decision Making - Lab Data Result diagrams: 08/05/18 12:20 08/05/18 12:20 - Medical Decision Making pt moved to TX room for IV fluids and nausea control Critical care attestation.: If time is entered above; I have spent that time in minutes in the direct care of this critically ill patient, excluding procedure time. ED Disposition Clinical Impression: Viral gastroenteritis Disposition: DC- TO HOME OR SELFCARE Is pt being admited?: No Does the pt Need Aspirin: No Condition: Stable Instructions: Gastroenteritis (ED) Prescriptions: Metoclopramide [Reglan] 10 mg PO TID PRN #20 tab PRN Reason: Nausea Referrals: PRIMARY CARE, [Primary Care Provider] - 3-5 Days Time of Disposition: 13:19
[2018-08-05 12:49] LABS: BUN/Creatinine Ratio 15; Basophils % (Auto) 0.3 % (0.0-1.8); Blood Urea Nitrogen 6 mg/dL (7-17); Calcium 8.6 mg/dL (8.4-10.2); Eosinophils # (Auto) 0.1 K/mm3 (0.0-0.4); Eosinophils % (Auto) 0.6 % (0.0-4.3); Hematocrit 33.3 % (30.3-42.9); Hemoglobin 10.8 gm/dl (10.1-14.3); Hemolysis Index 19; Lymphocytes # (Auto) 1.2 K/mm3 (1.2-5.4); Lymphocytes % (Auto) 13.4 % (13.4-35.0); Mean Corpuscular HGB Conc 33 % (30-34); Mean Corpuscular Volume 78 fl (79-97); Monocytes # (Auto) 0.5 K/mm3 (0.0-0.8); Monocytes % (Auto) 5.5 % (0.0-7.3); Platelet Count 329 K/mm3 (140-440); Red Blood Count 4.26 M/mm3 (3.65-5.03)
[2018-08-05] MEDS ORDERED: D5NS 1,000 ML IV SCH (13:00)
[2018-08-05 13:15] LABS: Mean Corpuscular Hemoglobin 26 pg (28-32)
== END 2018-08-05 13:29 | disposition home or self-care (01) ==
LOC: ED 11:21
DX: A08.4 Viral intestinal infection, unspecified (principal); G40.909 Epilepsy, unspecified, not intractable, without status epilepticus; Z79.899 Other long term (current) drug therapy; Z91.018 Allergy to other foods
CPT/HCPCS: 36415; 80048; 85025; 96374; 99283; J2765; J7042

== ENCOUNTER 2018-11-19 11:39 | Outpatient (CLI) | payer MEDICAID ==
[2018-11-19] MEDS ORDERED: XYLOCAINE TOPICAL 4% TP ONE (12:16)
== END 2018-11-19 11:40 | disposition home or self-care (01) ==
LOC: WOUND 11:39
PROVIDERS: ATTEND Surgery
DX: T81.89XD Other complications of procedures, not elsewhere classified, subsequent encounter (principal); G40.909 Epilepsy, unspecified, not intractable, without status epilepticus; Z87.891 Personal history of nicotine dependence; Y83.8 Other surgical procedures as the cause of abnormal reaction of the patient, or of later complication, without mention of misadventure at the time of the procedure
CPT/HCPCS: 11042; 97605; G0463; 99215

== ENCOUNTER 2018-12-06 11:25 | Outpatient (CLI) | payer MEDICAID | END 2018-12-06 11:26 | disposition home or self-care (01) | LOC: WOUND 11:25 | CPT/HCPCS: 97605 ==

== ENCOUNTER 2019-01-17 13:49 | Emergency (ER) | payer MEDICAID ==
[2019-01-17 14:07] VITALS: BP 123/93
[2019-01-17 14:21] LABS: HCG Qualitative,Urine Positive (Negative)
[2019-01-17 14:26] LABS: Bilirubin,Urine NEG (Negative); Blood,Urine NEG (Negative); Color,Urine Yellow (Yellow); Mucus,Urine 1+ /HPF; Protein,Urine <15 mg/dL mg/dL (Negative)
[2019-01-17] MEDS ORDERED: NACL 0.9% 1000 ML 1,000 ML IV ONE (14:27)
[2019-01-17] MEDS ORDERED: REGLAN IV ONE (14:27)
[2019-01-17] MEDS ORDERED: BENADRYL IV ONE (15:46)
[2019-01-17] MEDS ORDERED: BENADRYL ONE (15:46)
--- NOTE | 2019-01-17 15:48 | Emergency Department Report ---
ED Abdominal Pain HPI - General Chief Complaint: Nausea/Vomiting/Diarrhea Stated Complaint: VOMIT/NAUSEA/PAIN Time Seen by Provider: 01/17/19 14:23 Source: patient Mode of arrival: Ambulatory Limitations: No Limitations - History of Present Illness Initial Comments: Patient is a 23-year-old female who is presenting with some generalized abdominal cramping as well as nausea vomiting and mild diarrhea for the past 2-3 days. Patient states that he is unable to keep anything down. Patient does have a wound VAC secondary to infected wound that occurred several months ago. Patient denies any fevers chills at this time. Patient states there's been no cough cold or congestion sore throat or neck stiffness. Severity scale (0 -10): 5 - Related Data Home Medications Medication Instructions Recorded Confirmed Last Taken ALPRAZolam [Xanax TAB] 0.5 mg PO BID PRN 11/03/18 11/03/18 Unknown traZODone [Desyrel] 50 mg PO QHS 11/03/18 11/03/18 Unknown Previous Rx's Medication Instructions Recorded Last Taken Type Acetaminophen [Tylenol Arthritis] 650 mg PO Q6HR PRN #30 tablet.er 09/12/18 Unknown Rx oxyCODONE [Roxicodone] 5 mg PO Q6HR PRN #15 tablet 09/12/18 Unknown Rx Ondansetron [Zofran Odt] 4 mg PO Q8H PRN #30 tab.rapdis 09/13/18 Unknown Rx Vit-Fe Fumar-FA [ 1 tab PO QDAY #30 tablet 09/13/18 Unknown Rx Vitamin] Rivaroxaban [Xarelto] 20 mg PO QDAY #30 tab 11/08/18 Unknown Rx levETIRAcetam [Keppra] 750 mg PO BID #90 tablet 11/08/18 Unknown Rx oxyCODONE /ACETAMINOPHEN [Percocet 1 tab PO Q6HR PRN #40 tablet 11/08/18 Unknown Rx 5/325] Amoxicillin/Potassium Clav 1 each PO BID #12 tablet 11/09/18 Unknown Rx [Augmentin 875-125 Tablet] Doxycycline [Vibramycin CAP] 100 mg PO Q12HR #12 capsule 11/09/18 Unknown Rx Ibuprofen [Motrin] 600 mg PO Q8H PRN #30 tablet 11/09/18 Unknown Rx levETIRAcetam [Keppra TAB] 750 mg PO BID #60 tablet 11/09/18 Unknown Rx oxyCODONE /ACETAMINOPHEN [Percocet 1 tab PO Q6HR PRN #40 tablet 11/09/18 Unknown Rx 5/325] HYDROcodone/APAP 5-325 [[place] 1 each PO Q6HR PRN #14 tablet 11/12/18 Unknown Rx 5/325] Acetaminophen/Codeine [Tylenol 1 tab PO Q6H PRN #12 tab 12/12/18 Unknown Rx /Codeine # 3 tab] Ondansetron [Zofran Odt] 4 mg PO Q8HR PRN #10 tab.rapdis 01/17/19 Unknown Rx Allergies Allergy/AdvReac Type Severity Reaction Status Date / Time [place] And Derivatives Allergy Unknown Verified 01/17/19 15:56 latex Allergy Rash Verified 01/17/19 15:56 ED Review of Systems ROS: Stated complaint: VOMIT/NAUSEA/PAIN Other details as noted in HPI Comment: All other systems reviewed and negative ED Past Medical Hx - Past Medical History Hx Hypertension: No Hx Congestive Heart Failure: No Hx Diabetes: No Hx Deep Vein Thrombosis: No Hx Pulmonary Embolism: Yes (10/14) Hx Renal Disease: No Hx Sickle Cell Disease: No Hx Seizures: Yes Hx Asthma: No Hx COPD: No Hx HIV: No Additional medical history: PE post , sepsis - Surgical History Additional Surgical History: , Wound vac - Social History Smoking Status: Current Every Day Smoker Substance Use Type: None - Medications Home Medications: Home Medications Medication Instructions Recorded Confirmed Last Taken Type Acetaminophen [Tylenol Arthritis] 650 mg PO Q6HR PRN #30 tablet.er 09/12/18 11/03/18 Unknown Rx oxyCODONE [Roxicodone] 5 mg PO Q6HR PRN #15 tablet 09/12/18 11/03/18 Unknown Rx Ondansetron [Zofran Odt] 4 mg PO Q8H PRN #30 tab.rapdis 09/13/18 11/03/18 U nknown Rx Vit-Fe Fumar-FA [ 1 tab PO QDAY #30 tablet 09/13/18 11/03/18 Unknown Rx Vitamin] ALPRAZolam [Xanax TAB] 0.5 mg PO BID PRN 11/03/18 11/03/18 Unknown History traZODone [Desyrel] 50 mg PO QHS 11/03/18 11/03/18 Unknown History Rivaroxaban [Xarelto] 20 mg PO QDAY #30 tab 11/08/18 Unknown Rx levETIRAcetam [Keppra] 750 mg PO BID #90 tablet 11/08/18 Unknown Rx oxyCODONE /ACETAMINOPHEN [Percocet 1 tab PO Q6HR PRN #40 tablet 11/08/18 Unknown Rx 5/325] Amoxicillin/Potassium Clav 1 each PO BID #12 tablet 11/09/18 Unknown Rx [Augmentin 875-125 Tablet] Doxycycline [Vibramycin CAP] 100 mg PO Q12HR #12 capsule 11/09/18 Unknown Rx Ibuprofen [Motrin] 600 mg PO Q8H PRN #30 tablet 11/09/18 Unknown Rx levETIRAcetam [Keppra TAB] 750 mg PO BID #60 tablet 11/09/18 Unknown Rx oxyCODONE /ACETAMINOPHEN [Percocet 1 tab PO Q6HR PRN #40 tablet 11/09/18 Unknown Rx 5/325] HYDROcodone/APAP 5-325 [[place] 1 each PO Q6HR PRN #14 tablet 11/12/18 Unknown Rx 5/325] Acetaminophen/Codeine [Tylenol 1 tab PO Q6H PRN #12 tab 12/12/18 Unknown Rx /Codeine # 3 tab] Ondansetron [Zofran Odt] 4 mg PO Q8HR PRN #10 tab.rapdis 01/17/19 Unknown Rx ED Physical Exam - General Limitations: No Limitations General appearance: alert, in no apparent distress - Head Head exam: Present: atraumatic, normocephalic - Eye Eye exam: Present: normal appearance - ENT ENT exam: Present: mucous membranes moist - Neck Neck exam: Present: normal inspection - Respiratory Respiratory exam: Present: normal lung sounds bilaterally. Absent: respiratory distress, wheezes, rales, rhonchi - Cardiovascular Cardiovascular Exam: Present: regular rate, normal rhythm. Absent: systolic murmur, diastolic murmur, rubs, gallop - GI/Abdominal GI/Abdominal exam: Present: soft, tenderness (diffuse mild tenderness with no rebound or guarding. Patient has a wound VAC in the lower abdominal segment. There is no surrounding erythema.), normal bowel sounds. Absent: distended, guarding, rebound, rigid - Extremities Exam Extremities exam: Present: normal inspection - Back Exam Back exam: Present: normal inspection - Neurological Exam Neurological exam: Present: alert, oriented X3 - Psychiatric Psychiatric exam: Present: normal affect, normal mood - Skin Skin exam: Present: warm, dry, intact, normal color. Absent: rash ED Course Vital Signs 01/17/19 14:02 Temperature 97.9 F Pulse Rate 97 H Respiratory 15 Rate Blood Pressure 123/93 [Left] O2 Sat by Pulse 100 Oximetry - Reevaluation(s) Reevaluation #1: 01/17/19 15:44 Patient received Reglan for nausea and had akethesia reaction. Patient very nervous and wanted to leave and stated that she was having a hard time sitting still. Patient given 25 mg of Benadryl and she will be reassessed. Reevaluation #2: 01/17/19 16:51 Patient's test was positive. Patient had a Quant which returned and s hows that the patient does have an elevated Quant and she did have an IUP seen on ultrasound if present. Patient was sent for ultrasound. After patient returned while awaiting for the results patient started having heavy vaginal bleeding. Patient while sitting in the chair did bleed through her pants and shoes placed in a bed with the patient. We're waiting at this time the results of patient's ultrasound. Reevaluation #3: 01/17/19 17:17 Patient did calm down from her reaction from the Reglan. Patient still states she would like to leave and follow with her EXTENSION AGENT. She states she has 6 children and she has get home to. Patient states she is not dizzy and she'll follow-up or return to the emergency department if necessary patient. Ultrasound did return before the patient left in she does have a single IUP with a large subchorionic hemorrhage which is likely causing the patient's bleeding. Because of the patient's bleeding heavily still stated that I would prefer her to stay for [employer]TENS[employer] AGENT consult and the patient states she still would like to leave. Patient be discharged AGAINST MEDICAL ADVICE. ED Medical Decision Making - Lab Data Lab Results 01/17/19 01/17/19 Range/Units 14:33 Unknown HCG, Quant 39195 H (0-4) mIU/mL Urine Color Yellow (Yellow) Urine Turbidity Slightly-cloudy (Clear) Urine pH 6.0 (5.0-7.0) Ur Specific [place] 1.029 (1.003-1.030) Urine Protein <15 mg/dl (Negative) mg/dL Urine Glucose (UA) Neg (Negative) mg/dL Urine Ketones Neg (Negative) mg/dL Urine Blood Neg (Negative) Urine Nitrite Neg (Negative) Ur Reducing Substances Not Reportable Urine Bilirubin Neg (Negative) Urine Ictotest Not Reportable Urine Urobilinogen 2.0 (<2.0) mg/dL Ur Leukocyte Esterase Mod (Negative) Urine WBC (Auto) 3.0 (0.0-6.0) /HPF Urine RBC (Auto) 7.0 (0.0-6.0) /HPF U Epithel Cells (Auto) 11.0 (0-13.0) /HPF Urine Mucus 1+ /HPF Urine HCG, Qual Positive A (Negative) Critical care attestation.: If time is entered above; I have spent that time in minutes in the direct care of this critically ill patient, excluding procedure time. ED Disposition Clinical Impression: IUP (intrauterine ), incidental Nausea & vomiting Qualifiers: Vomiting type: unspecified Vomiting Intractability: non-intractable Qualified Code(s): R11.2 - Nausea with vomiting, unspecified Subchorionic bleed Qualifiers: Fetus number: single or unspecified fetus Trimester: first trimester Qualified Code(s): O41.8X10 - Other specified disorders of amniotic fluid and membranes, first trimester, not applicable or unspecified; O46.8X1 - Other antepartum hemorrhage, first trimester Disposition: LEFT AGAINST MED ADVICE Is pt being admited?: No Does the pt Need Aspirin: No Condition: Stable Instructions: Threatened Miscarriage (ED) Referrals: GINNY ENCISO MD [Primary Care Provider] - 3-5 Days Time of Disposition: 17:20
--- NOTE | 2019-01-18 05:55 | Ultrasound Report ---
PROCEDURE: US OB <= 14 WEEKS FETUS TECHNIQUE: Pelvic ultrasound evaluation of the gravid uterus HISTORY: preg with abd pain COMPARISONS: None FINDINGS: A gestational sac is present in the endometrial cavity containing a yolk sac and pole. viability is documented with evidence of cardiac activity. pole crown-rump length: 16 mm heart rate: 167 beats per minute Average estimated gestational age by ultrasound 8 weeks 0 days Estimated delivery date: 08/29/2019 Nonspecific hypoechoic collection adjacent to the gestational sac is suggestive of moderate to large subchorionic hemorrhage measuring approximately 5.2 x 2.5 x 1.7 cm. The uterine echotexture is homogenous and without evidence of mass. No evidence of solid ovarian mass. Nonspecific slightly complex cystic lesion in the right ovary may be a 2.2 cm corpus luteum. The adnexa are normal. There is no cul-de-sac free fluid. Impression: Single viable intrauterine with the above parameters Hypoechoic collection adjacent to the gestational sac suggestive of moderate to large subchorionic he morrhage This document is electronically signed by Micheal Miller MD., January 17 2019 04:04:53 PM ET
--- NOTE | 2019-01-18 05:56 | Ultrasound Report ---
PROCEDURE: US OB TRANSVAGINAL TECHNIQUE: Pelvic ultrasound evaluation of the gravid uterus HISTORY: preg with abd pain COMPARISONS: Transabdominal pelvic ultrasound 01/17/2019 FINDINGS: A gestational sac is present in the endometrial cavity containing a yolk sac and pole. viability is documented with evidence of cardiac activity. pole crown-rump length: 16 mm heart rate: 167 beats per minute Average estimated gestational age by ultrasound 8 weeks 0 days Estimated delivery date: 08/29/2019 Nonspecific hypoechoic collection adjacent to the gestational sac is suggestive of moderate to large subchorionic hemorrhage measuring approximately 5.2 x 2.5 x 1.7 cm. The uterine echotexture is homogenous and without evidence of mass. No evidence of solid ovarian mass. Nonspecific slightly complex cystic lesion in the right ovary may be a 2.2 cm corpus luteum. The adnexa are normal. There is no cul-de-sac free fluid. Impression: Single viable intrauterine with the above parameters Hypoechoic collection adjacent to the gestational sac suggestive of moderate to large subchorionic he morrhage This document is electronically signed by Micheal Miller MD., January 17 2019 05:09:06 PM ET
== END 2019-01-17 17:28 | disposition left against medical advice (07) ==
LOC: ED 13:49
DX: O41.8X10 Other specified disorders of amniotic fluid and membranes, first trimester, not applicable or unspecified (principal); O46.8X1 Other antepartum hemorrhage, first trimester; O99.331 Smoking (tobacco) complicating pregnancy, first trimester; Z3A.08 8 weeks gestation of pregnancy; Z86.711 Personal history of pulmonary embolism; Z91.040 Latex allergy status; Z91.018 Allergy to other foods; Z79.899 Other long term (current) drug therapy
CPT/HCPCS: 36415; 76801; 76817; 81001; 81025; 84702; 96361; 96374; 96375; 99284; J1200; J2765; J7030

== ENCOUNTER 2019-02-05 22:22 | Emergency (ER) | payer SELFPAY ==
[2019-02-05 22:29] VITALS: BP 118/77
--- NOTE | 2019-02-05 22:38 | Emergency Department Report ---
Chief Complaint: Abdominal Pain Stated Complaint: POST OP COMPLICATIONS/DIZZINESS Time Seen by Provider: 02/05/19 22:31 - HPI History of Present Illness: This is a 23 y.o. female that presents with increased pain to wound. Patient is had a wound vac which she removed yesterday. She is 10 weeks . She is under wound care management. Denies vaginal bleeding, vaginal discharge, or back pain. - ROS Review of Systems: Pain, redness, and pus drainage to wound - Exam Vital Signs: Vital Signs 02/05/19 22:28 Temperature 97.8 F Pulse Rate 100 H Respiratory 18 Rate Blood Pressure 118/77 [Right] O2 Sat by Pulse 97 Oximetry MSE screening note: Focused history and physical exam performed. Due to findings the following was ordered: labs ED Disposition for MSE Condition: Stable Instructions: Abdominal Pain (ED)
[2019-02-05 23:17] LABS: Basophils % (Auto) 0.2 % (0.0-1.8); Eosinophils # (Auto) 0.2 K/mm3 (0.0-0.4); Eosinophils % (Auto) 2.5 % (0.0-4.3); Hematocrit 36.3 % (30.3-42.9); Hemoglobin 12.7 gm/dl (10.1-14.3); Lymphocytes # (Auto) 3.2 K/mm3 (1.2-5.4); Lymphocytes % (Auto) 37.9 % (13.4-35.0); Mean Corpuscular HGB Conc 35 % (30-34); Mean Corpuscular Volume 80 fl (79-97); Monocytes # (Auto) 0.6 K/mm3 (0.0-0.8); Monocytes % (Auto) 7.2 % (0.0-7.3); Platelet Count 264 K/mm3 (140-440); Red Blood Count 4.54 M/mm3 (3.65-5.03); Red Cell Distribution Width 13.1 % (13.2-15.2)
[2019-02-05 23:42] LABS: Alanine Aminotransferase 5 units/L (7-56); BUN/Creatinine Ratio 18; Blood Urea Nitrogen 7 mg/dL (7-17); Hemolysis Index 2
--- NOTE | 2019-02-06 00:57 | Emergency Department Report ---
ED General Adult HPI - General Chief complaint: Abdominal Pain Stated complaint: POST OP COMPLICATIONS/DIZZINESS Time Seen by Provider: 02/05/19 22:31 Source: patient Mode of arrival: Ambulatory Limitations: No Limitations - History of Present Illness Initial comments: 23-year-old female who is 10 weeks presents with the complaint of a infection at her site. Patient has had a wound VAC placed that this site since October 2016. Patient states that she has noted increased pus and increased pain in this region and caught her wound care nurse and was told to come to the emergency department. Patient has had no fever. Patient had no vomiting. Patient denies any vaginal bleeding. Patient states that she's noticed pus as well as redness to the area. Patient states that she removed her wound VAC secondary to the pain. Patient states she has had Her wound VAC on consistently however prior to this. - Related Data Home Medications Medication Instructions Recorded Confirmed Last Taken ALPRAZolam [Xanax TAB] 0.5 mg PO BID PRN 11/03/18 11/03/18 Unknown traZODone [Desyrel] 50 mg PO QHS 11/03/18 11/03/18 Unknown Previous Rx's Medication Instructions Recorded Last Taken Type Acetaminophen [Tylenol Arthritis] 650 mg PO Q6HR PRN #30 tablet.er 09/12/18 Unknown Rx oxyCODONE [Roxicodone] 5 mg PO Q6HR PRN #15 tablet 09/12/18 Unknown Rx Ondansetron [Zofran Odt] 4 mg PO Q8H PRN #30 tab.rapdis 09/13/18 Unknown Rx Vit-Fe Fumar-FA [ 1 tab PO QDAY #30 tablet 09/13/18 Unknown Rx Vitamin] Rivaroxaban [Xarelto] 20 mg PO QDAY #30 tab 11/08/18 Unknown Rx levETIRAcetam [Keppra] 750 mg PO BID #90 tablet 11/08/18 Unknown Rx oxyCODONE /ACETAMINOPHEN [Percocet 1 tab PO Q6HR PRN #40 tablet 11/08/18 Unknown Rx 5/325] Amoxicillin/Potassium Clav 1 each PO BID #12 tablet 11/09/18 Unknown Rx [Augmentin 875-125 Tablet] Doxycycline [Vibramycin CAP] 100 mg PO Q12HR #12 capsule 11/09/18 Unknown Rx Ibuprofen [Motrin] 600 mg PO Q8H PRN #30 tablet 11/09/18 Unknown Rx levETIRAcetam [Keppra TAB] 750 mg PO BID #60 tablet 11/09/18 Unknown Rx oxyCODONE /ACETAMINOPHEN [Percocet 1 tab PO Q6HR PRN #40 tablet 11/09/18 Unknown Rx 5/325] HYDROcodone/APAP 5-325 [[place] 1 each PO Q6HR PRN #14 tablet 11/12/18 Unknown Rx 5/325] Acetaminophen/Codeine [Tylenol 1 tab PO Q6H PRN #12 tab 12/12/18 Unknown Rx /Codeine # 3 tab] Ondansetron [Zofran Odt] 4 mg PO Q8HR PRN #10 tab.rapdis 01/17/19 Unknown Rx Allergies Allergy/AdvReac Type Severity Reaction Status Date / Time [place] And Derivatives Allergy Unknown Verified 01/17/19 15:56 latex Allergy Rash Verified 01/17/19 15:56 ED Review of Systems ROS: Stated complaint: POST OP COMPLICATIONS/DIZZINESS Other details as noted in HPI Constitutional: denies: chills, fever Eyes: denies: eye pain, eye discharge, vision change ENT: denies: ear pain, throat pain Respiratory: denies: cough, shortness of breath, wheezing Cardiovascular: denies: chest pain, palpitations Endocrine: no symptoms reported Gastrointestinal: abdominal pain Genitourinary: denies: urgency, dysuria, discharge Musculoskeletal: denies: back pain, joint swelling, arthralgia Skin: denies: rash, lesions Neurological: denies: headache, weakness, paresthesias Psychiatric: denies: anxiety, depression Hematological/Lymphatic: denies: easy bleeding, easy bruising ED Past Medical Hx - Past Medical History Previous Medical History?: Yes Hx Hypertension: No Hx Congestive Heart Failure: No Hx Diabetes: No Hx Deep Vein Thrombosis: No Hx Pulmonary Embolism: Yes (10/14) Hx Renal Disease: No Hx Sickle Cell Disease: No Hx Seizures: Yes Hx Asthma: No Hx COPD: No Hx HIV: No Additional medical history: PE post , sepsis - Surgical History Past Surgical History?: Yes Additional Surgical History: , Wound vac - Social History Smoking Status: Never Smoker Substance Use Type: None - Medications Home Medications: Home Medications Medication Instructions Recorded Confirmed Last Taken Type Acetaminophen [Tylenol Arthritis] 650 mg PO Q6HR PRN #30 tablet.er 09/12/18 11/03/18 Unknown Rx oxyCODONE [Roxicodone] 5 mg PO Q6HR PRN #15 tablet 09/12/18 11/03/18 Unknown Rx Ondansetron [Zofran Odt] 4 mg PO Q8H PRN #30 tab.rapdis 09/13/18 11/03/18 Unknown Rx Vit-Fe Fumar-FA [ 1 tab PO QDAY #30 tablet 09/13/18 11/03/18 Unknown Rx Vitamin] ALPRAZolam [Xanax TAB] 0.5 mg PO BID PRN 11/03/18 11/03/18 Unknown History traZODone [Desyrel] 50 mg PO QHS 11/03/18 11/03/18 Unknown History Rivaroxaban [Xarelto] 20 mg PO QDAY #30 tab 11/08/18 Unknown Rx levETIRAcetam [Keppra] 750 mg PO BID #90 tablet 11/08/18 Unknown Rx oxyCODONE /ACETAMINOPHEN [Percocet 1 tab PO Q6HR PRN #40 tablet 11/08/18 Unknown Rx 5/325] Amoxicillin/Potassium Clav 1 each PO BID #12 tablet 11/09/18 Unknown Rx [Augmentin 875-125 Tablet] Doxycycline [Vibramycin CAP] 100 mg PO Q12HR #12 capsule 11/09/18 Unknown Rx Ibuprofen [Motrin] 600 mg PO Q8H PRN #30 tablet 11/09/18 Unknown Rx levETIRAcetam [Keppra TAB] 750 mg PO BID #60 tablet 11/09/18 Unknown Rx oxyCODONE /ACETAMINOPHEN [Percocet 1 tab PO Q6HR PRN #40 tablet 11/09/18 Unknown Rx 5/325] HYDROcodone/APAP 5-325 [[place] 1 each PO Q6HR PRN #14 tablet 11/12/18 Unknown Rx 5/325] Acetaminophen/Codeine [Tylenol 1 tab PO Q6H PRN #12 tab 12/12/18 Unknown Rx /Codeine # 3 tab] Ondansetron [Zofran Odt] 4 mg PO Q8HR PRN #10 tab.rapdis 01/17/19 Unknown Rx ED Physical Exam - General Limitations: No Limitations General appearance: alert, other (minimal distress; awake) - Head Head exam: Present: atraumatic, normocephalic - Eye Eye exam: Present: normal appearance - ENT ENT exam: Present: mucous membranes moist - Neck Neck exam: Present: normal inspection - Respiratory Respiratory exam: Present: normal lung sounds bilaterally. Absent: respiratory distress - Cardiovascular Cardiovascular Exam: Present: regular rate, normal rhythm. Absent: systolic murmur, diastolic murmur, rubs, gallop - GI/Abdominal GI/Abdominal exam: Present: soft, normal bowel sounds, other (in suprapubic region there is a area of erythema with open wound with minimal exudate expressed. Patient has tenderness to palpation in the region) - Extremities Exam Extremities exam: Present: normal inspection - Back Exam Back exam: Present: normal inspection - Neurological Exam Neurological exam: Present: alert, oriented X3 - Psychiatric Psychiatric exam: Present: normal affect, normal mood - Skin Skin exam: Present: warm, dry, intact, normal color. Absent: rash ED Course Vital Signs 02/05/19 02/06/19 22:28 01:22 Temperature 97.8 F Pulse Rate 100 H Respiratory 18 18 Rate Blood Pressure 118/77 [Right] O2 Sat by Pulse 97 98 Oximetry ED Medical Decision Making - Lab Data Result diagrams: 02/05/19 22:48 02/05/19 22:48 - Medical Decision Making Case discussed with Dr. James who has seen the patient previously in consultation. Patient has no fever and has a normal white count. Patient otherwise sitting upright comfortable. The patient's unable to perform a CT scan. Patient to be given IV antibiotics while here in emergency department and by mouth antibiotic Cipro and discharged. After discussing the case with Dr. Azevedo was agreed the patient can follow-up this morning and be discharged tonight. Patient refused IV antibiotics and states she only wanted the pills and patient also refused wound culture. - Differential Diagnosis wound infection; cellulitis; Critical care attestation.: If time is entered above; I have spent that time in minutes in the direct care of this critically ill patient, excluding procedure time. ED Disposition Clinical Impression: Wound infection Disposition: DC-01 TO HOME OR SELFCARE Is pt being admited?: No Does the pt Need Aspirin: No Condition: Stable Instructions: Abdominal Pain (ED), Wound Infection (ED) Referrals: ALIZA PETTY MD [Primary Care Provider] - 3-5 Days BRET AZEVEDO MD [Staff Physician] - 3-5 Days Time of Disposition: 02:17 Print Language: SINHALA
[2019-02-06] MEDS ORDERED: CLEOCIN 600 MG/50 mL 600 MG/50 ML BAG IV ONE (01:41)
== END 2019-02-06 02:32 | disposition home or self-care (01) ==
LOC: ED 22:22
DX: T81.41XA Infection following a procedure, superficial incisional surgical site, initial encounter (principal); Z86.711 Personal history of pulmonary embolism; Z91.040 Latex allergy status; Z91.018 Allergy to other foods; Y83.8 Other surgical procedures as the cause of abnormal reaction of the patient, or of later complication, without mention of misadventure at the time of the procedure
CPT/HCPCS: 36415; 80053; 84703; 85025

== ENCOUNTER 2019-04-21 13:23 | Outpatient (CLI) | payer SELFPAY ==
[2019-04-21] MEDS ORDERED: LACTATED RINGERS 1,000 ML IV ONE (16:00)
[2019-04-21 16:07] LABS: Bacteria,Urine 1+ /HPF (Negative); Bilirubin,Urine NEG (Negative); Blood,Urine NEG (Negative); Color,Urine Yellow (Yellow); Mucus,Urine 3+ /HPF; Protein,Urine <15 mg/dL mg/dL (Negative); Urobilinogen,Urine < 2.0 mg/dL (<2.0)
[2019-04-21] MEDS ORDERED: ZOFRAN IV ONE (17:00)
[2019-04-21 18:58] VITALS: BP 114/57
== END 2019-04-21 20:00 | disposition home or self-care (01) ==
LOC: TRG 13:23
PROVIDERS: ATTEND Obstetrics & Gynecology
DX: O21.2 Late vomiting of pregnancy (principal); O47.02 False labor before 37 completed weeks of gestation, second trimester; Z3A.21 21 weeks gestation of pregnancy; Z86.711 Personal history of pulmonary embolism
CPT/HCPCS: 81001; 96361; 96365; J2405; J7120; 96360; 96374

== ENCOUNTER 2019-05-16 17:54 | Emergency (ER) | payer MEDICAID ==
--- NOTE | 2019-05-16 18:47 | Emergency Department Report ---
Blank Doc - Documentation Documentation: 23 y o f at 32 weeks gestation presents with dental pain x 1 week states her tooth is breaking off and bleeding states 7 months , [facility]
[2019-05-16 20:31] VITALS: BP 122/67
[2019-05-16] MEDS ORDERED: TYLENOL PO ONE (20:49)
--- NOTE | 2019-05-16 20:53 | Emergency Department Report ---
ED ENT HPI - General Chief complaint: Dental/Oral Stated complaint: MOUTH PAIN/TOOTH INJURY Time Seen by Provider: 05/16/19 18:43 Source: patient Mode of arrival: Ambulatory Limitations: No Limitations - History of Present Illness Initial comments: This is a 23-year-old female nontoxic, well nourished in appearance, no acute signs of distress presents to the ED with c/o of left upper toothache 3 weeks. Patient denies following up with a dentist. Stated is now with no complications. Patient stated that pain radiates from his job to his left side of head. Patient otherwise denies any head trauma. Patient describes toothache as aching level of 8 out of 10. Patient denies any facial swelling. Patient denies any numbness, tingling, fever, chills, headache, stiff neck, abdominal pain, chest pain, shortness of breath. MD complaint: tooth pain -: week(s) (3) Location: tooth # 1 - pain here Severity: mild Severity scale (0 -10): 8 Quality: aching Consistency: constant Improves with: none Worsens with: none Associated Symptoms: gum swelling, toothache. denies: fever, cough, pain with swallowing, sore throat, tinnitus, hearing loss, discharge from ear, rhinorrhea - Related Data Previous Rx's Medication Instructions Recorded Last Taken Type levETIRAcetam [Keppra] 750 mg PO BID #90 tablet 11/08/18 Unknown Rx levETIRAcetam [Keppra TAB] 750 mg PO BID #60 tablet 11/09/18 Unknown Rx Acetaminophen [Tylenol] 500 mg PO Q6HR PRN #20 tablet 05/16/19 Unknown Rx Amoxicillin [Amoxicillin TAB] 875 mg PO BID #20 tablet 05/16/19 Unknown Rx Allergies Allergy/AdvReac Type Severity Reaction Status Date / Time [place] [employer] Allergy Unknown Verified 01/17/19 15:56 latex Allergy Rash Verified 01/17/19 15:56 ED Dental HPI - General Chief complaint: Dental/Oral Stated complaint: MOUTH PAIN/TOOTH INJURY Time Seen by Provider: 06/27/19 18:43 Source: patient Mode of arrival: Ambulatory Limitations: No Limitations - Related Data Previous Rx's Medication Instructions Recorded Last Taken Type levETIRAcetam [Keppra] 750 mg PO BID #90 tablet 11/08/18 Unknown Rx levETIRAcetam [Keppra TAB] 750 mg PO BID #60 tablet 11/09/18 Unknown Rx Acetaminophen [Tylenol] 500 mg PO Q6HR PRN #20 tablet 05/16/19 Unknown Rx Amoxicillin [Amoxicillin TAB] 875 mg PO BID #20 tablet 05/16/19 Unknown Rx Allergies Allergy/AdvReac Type Severity Reaction Status Date / Time [place] [employer] Allergy Unknown Verified 01/17/19 15:56 latex Allergy Rash Verified 01/17/19 15:56 ED Review of Systems ROS: Stated complaint: MOUTH PAIN/TOOTH INJURY Other details as noted in HPI Constitutional: denies: chills, fever Eyes: denies: eye pain, eye discharge, vision change ENT: dental pain. denies: ear pain, throat pain Respiratory: denies: cough, shortness of breath, wheezing Cardiovascular: denies: chest pain, palpitations Endocrine: no symptoms reported Gastrointestinal: denies: abdominal pain, nausea, diarrhea Genitourinary: denies: urgency, dysuria, discharge Musculoskeletal: denies: back pain, joint swelling, arthralgia Skin: denies: rash, lesions Neurological: denies: headache, weakness, paresthesias Psychiatric: denies: anxiety, depression Hematological/Lymphatic: denies: easy bleeding, easy bruising ED Past Medical Hx - Past Medical History Previous Medical History?: Yes Hx Hypertension: No Hx Congestive Heart Failure: No Hx Diabetes: No Hx Deep Vein Thrombosis: No Hx Pulmonary Embolism: Yes (10/14) Hx Renal Disease: No Hx Sickle Cell Disease: No Hx Seizures: Yes Hx Asthma: No Hx COPD: No Hx HIV: No Additional medical history: PE post , sepsis - Surgical History Past Surgical History?: Yes Additional Surgical History: , Wound vac - Social History Smoking Status: Former Smoker Substance Use Type: None - Medications Home Medications: Home Medications Medication Instructions Recorded Confirmed Last Taken Type levETIRAcetam [Keppra] 750 mg PO BID #90 tablet 11/08/18 04/21/19 Unknown Rx levETIRAcetam [Keppra TAB] 750 mg PO BID #60 tablet 11/09/18 04/21/19 Unknown Rx Acetaminophen [Tylenol] 500 mg PO Q6HR PRN #20 tablet 05/16/19 Unknown Rx Amoxicillin [Amoxicillin TAB] 875 mg PO BID #20 tablet 05/16/19 Unknown Rx ED Physical Exam - General Limitations: No Limitations General appearance: alert, in no apparent distress - Head Head exam: Present: atraumatic, normocephalic - Eye Eye exam: Present: normal appearance - Expanded ENT Exam Expanded Ear exam: Present: normal external inspection Mouth exam: Present: normal external inspection, tongue normal. Absent: drooling, trismus, muffled voice Teeth exam: Present: dental caries, fractured tooth #, dental tenderness #, gingival enlargement, other (no facial swelling) Throat exam: Positive: normal inspection, other (uvula midline.). Negative: tonsillar erythema, tonsillomegaly, tonsillar exudate, R peritonsillar mass, L peritonsillar mass - Neck Neck exam: Present: normal inspection, full ROM. Absent: tenderness, meningismus, lymphadenopathy - Extremities Exam Extremities exam: Present: normal inspection, full ROM - Back Exam Back exam: Present: normal inspection, full ROM - Neurological Exam Neurological exam: Present: alert, oriented X3 - Psychiatric Psychiatric exam: Present: normal affect, normal mood - Skin Skin exam: Present: warm, dry, intact, normal color. Absent: rash ED Course Vital Signs 05/16/19 05/16/19 18:43 20:30 Temperature 97.4 F L Pulse Rate 83 62 Respiratory 20 17 Rate Blood Pressure 115/72 Blood Pressure 122/67 [Right] O2 Sat by Pulse 99 100 Oximetry - Reevaluation(s) Reevaluation #1: 05/16/19 20:51 Patient is speaking in full sentences with no signs of distress noted. Critical care attestation.: If time is entered above; I have spent that time in minutes in the direct care of this critically ill patient, excluding procedure time. ED Disposition Clinical Impression: Dental caries, Gingivitis Disposition: - TO HOME OR SELFCARE Is pt being admited?: No Does the pt Need Aspirin: No Condition: Stable Instructions: Dental Caries (ED), Gingivitis (ED) Additional Instructions: Follow-up with a dentist doctor in 3-5 days or if symptoms worsen and continue return to emergency room as soon as possible. Prescriptions: Acetaminophen [Tylenol] 500 mg PO Q6HR PRN #20 tablet PRN Reason: Pain , Severe (7-10) Amoxicillin [Amoxicillin TAB] 875 mg PO BID #20 tablet Referrals: PRIMARY CARE, [Referring] - 3-5 Days CAT COREY MD [Staff Physician] - 3-5 Days Andrew [facility] [Outside] - 3-5 Days Forms: Work/School Release Form(ED)
== END 2019-05-16 22:55 | disposition home or self-care (01) ==
LOC: ED 17:54
DX: K02.9 Dental caries, unspecified (principal); K05.10 Chronic gingivitis, plaque induced; Z86.711 Personal history of pulmonary embolism; Z91.040 Latex allergy status; Z91.018 Allergy to other foods
CPT/HCPCS: 99282

== ENCOUNTER 2019-07-12 10:00 | Emergency (ER) | payer SELFPAY ==
[2019-07-12] MEDS ORDERED: ATIVAN ONE ×2 (10:07→10:18)
[2019-07-12] MEDS ORDERED: NACL 0.9% 1000 ML 1,000 ML IV ONE (10:08)
[2019-07-12] MEDS ORDERED: KEPPRA 1,000 MG/NS 0.75% 100ML 1,000 MG/100 ML BAG IV ONE (10:09)
[2019-07-12] MEDS ORDERED: ATIVAN IV ONE ×3 (10:15→11:25)
--- NOTE | 2019-07-12 10:23 | Emergency Department Report ---
HPI - General Chief Complaint: Seizure Time Seen by Provider: 07/12/19 10:07 - HPI HPI: 23-year-old -[place]inames[place] female presents to the emergency department from home via EMS with complaint of multiple seizures. The patient had 1 witnessed seizure by family. There has been about 4 witnessed seizures by EMS and so far there have been 2 witnessed seizures once she has arrived to the emergency department. She received 2.5 mg of Versed by EMS. She has a known seizure disorder for which she takes Keppra but her compliance is unknown. Allegedly ld olivares just gave to her child one week ago. The patient is currently postictal and having recurrent seizures and is a poor historian. The patient has started to become more responsive. She says that she did have a 9 days ago at [facility]. She still continues to have some discomfort at the site. ED Past Medical Hx - Past Medical History Hx Hypertension: No Hx Congestive Heart Failure: No Hx Diabetes: No Hx Deep Vein Thrombosis: No Hx Pulmonary Embolism: Yes (10/14) Hx Renal Disease: No Hx Sickle Cell Disease: No Hx Seizures: Yes Hx Asthma: No Hx COPD: No Hx HIV: No Additional medical history: PE post , sepsis - Surgical History Additional Surgical History: , Wound vac - Social History Smoking Status: Never Smoker Substance Use Type: None - Medications Home Medications: Home Medications Medication Instructions Recorded Confirmed Last Taken Type levETIRAcetam [Keppra] 750 mg PO BID #90 tablet 11/08/18 07/12/19 Unknown Rx levETIRAcetam [Keppra TAB] 750 mg PO BID #60 tablet 11/09/18 07/12/19 Unknown Rx Acetaminophen [Tylenol] 500 mg PO Q6HR PRN #20 tablet 05/16/19 07/12/19 Unknown Rx Amoxicillin [Amoxicillin TAB] 875 mg PO BID #20 tablet 05/16/19 07/12/19 Unknown Rx ED Review of Systems ROS: Stated complaint: SEIZURE Other details as noted in HPI Comment: Unobtainable due to pts medical conditions Physical Exam - Physical Exam Vital Signs: Vital Signs 07/12/19 10:18 Temperature 98.6 F Pulse Rate 105 H Respiratory 16 Rate Blood Pressure 119/73 O2 Sat by Pulse 96 Oximetry Physical Exam: GENERAL: Patient is post-ictal. HENT: Normocephalic. Atraumatic. Patient has moist mucous membranes. EYES: Pupils equal and reactive to light b/l. NECK: Supple. Trachea is midline. CHEST/LUNGS: Clear to auscultation. There is no respiratory distress noted. HEART/CARDIOVASCULAR: Regular. There is no tachycardia. There is no murmur. ABDOMEN: Abdomen is soft. Patient has normal bowel sounds. There is no abdominal distention. SKIN: Skin is warm and dry. incision site apears clean, non-infected. No erythema, bleeding, weeping or drainage. NEURO: Patient is post-ictal and therefore not following any commands. +gag reflex. MUSCULOSKELETAL: No obvious deformities. Radial pulse +2/4 b/l. Cap refill < 2 secs. ED Course Vital Signs 07/12/19 10:18 Temperature 98.6 F Pulse Rate 105 H Respiratory 16 Rate Blood Pressure 119/73 O2 Sat by Pulse 96 Oximetry - Consultations Consultation #1: 07/12/19 16:19 I spoke to the UTILITY LOCATE TECHNICIAN on-call, Dr. Ranjith Cortés, who says that he would be happy to see the patient is a consult with the patient ends up being admitted. Otherwise, given that the patient is hemodynamically stable, the patient appears safe/stable for outpatient follow-up regarding the CT findings of some blood in the uterine canal. ED Medical Decision Making - Lab Data Result diagrams: 07/12/19 10:15 07/12/19 10:15 - EKG Data -: EKG Interpreted by Mo EKG shows normal: sinus rhythm, axis, intervals, QRS complexes, ST-T waves Rate: normal - EKG Data When compared to previous EKG there are: previous EKG unavailable Interpretation: normal EKG - Radiology Data Radiology results: report reviewed CT BRAIN: 07/12/2019 INDICATION / CLINICAL INFORMATION: Multiple Seizures. COMPARISON: 11/04/2018 FINDINGS: BRAIN/INTRACRANIAL STRUCTURES: Unenhanced CT images of the brain were obtained and compared to the prior exam from 11/04/2018. There has been no change. There is no evidence of acute abnormality. Ventricles and sulci are normal in size and shape. There is no evidence of hemorrhage or mass. There are no abnormal extra- axial fluid collections. EXTRACRANIAL STRUCTURES: Unremarkable. IMPRESSION: Negative unenhanced CT of the brain. CT ABDOMEN AND PELVIS WITHOUT CONTRAST HISTORY: Abdominal pain, 9 days ago COMPARISON: 11/12/2018 TECHNIQUE: Axial CT images were obtained through the abdomen and pelvis without IV contrast. Sagittal and coronal reformatted images. All CT scans at this location are performed using CT dose reduction for ALARA by means of automated exposure control. FINDINGS: CT ABDOMEN: Lung Bases: Clear. Liver: No significant abnormality. Biliary: No significant abnormality. Spleen: No significant abnormality. Unenlarged. Pancreas: No significant abnormality. Adrenals: No significant abnormality. Kidneys: No significant abnormality. Lymphatics: No lymphadenopathy. Vasculature: No significant abnormality. Bowel/Peritoneum: No significant abnormality. No free air. No free fluid. Normal appendix. CT PELVIS: : The uterus is enlarged consistent with a uterus. There is dense material within the uterine canal with internal density measuring 57 Hounsfield units consistent with hemorrhagic products. The adnexa are unremarkable. Osseous Structures: No significant abnormality. Additional Findings: None IMPRESSION: Moderate to large hemorrhagic products are identified in the uterine canal. - Medical Decision Making This patient presented with multiple seizures including at home, with EMS and then in the ED. She was given a few different dose of Ativan and loaded with Keppra. She appears to have a short post-ictal perioud. She is responsive without any focal, motor or sensory deficits in between her seizures. She had a CT scan of the head without contrast that did not show any bleed, shift, mass, ischemia or any acute process. CN intact. The patient was in the ED for about 6 or 7 hours before she left AMA and did not have any further seizures for the l ast 4 or 5 hours. She also had complained of abdominal/pelvic pain where she recently had a and some vaginal bleeding. CT of the abd/pelvis showed moderate to large blood in the uterine canal. Her labs were unremarkable. I looked at the incision site and it does not appear infected. I spoke with UTILITY LOCATE TECHNICIAN who says they would see the patient as a consult if admitted, and otherwise she can be seen outpatient if not admitted. My plan initially was for the patient to be admitted secondary to her recurrent seizures despite medication compliance. However, the patient did not appear to want admission and asked to sign out AMA. I explained to her the risks of leaving AMA including f urther seizure like activity that could cause head trauma, status epilepticus, brain damage, coma, or even . The patient is currently awake and alert and it has been hours since her last seizure. She has normal decision making capacity and despite understanding the risks of leaving, she has chosen to sign out AMA. She understands that if she changes her mind about admission or further evaluation, or if she has any worsening of her symptoms or any acute distress, she can return to the ED immediately. She was given the referral information for OBGYN. - Differential Diagnosis Epilepsy, Substance abuse, Malignancy, uterine atony Critical care attestation.: If time is entered above; I have spent that time in minutes in the direct care of this critically ill patient, excluding procedure time. ED Disposition Clinical Impression: Seizure disorder, Recurrent seizures, Post-op pain, Status post , Vaginal bleeding Disposition: - LEFT AGAINST MED ADVICE Is pt being admited?: No Condition: Stable Instructions: Epilepsy (ED), Recurrent Seizures Adult (ED) Additional Instructions: Please return to the emergency department if you change your mind about further evaluation and possible admission, or with any acute distress. Take your seizure medications. Please follow-up with an UTILITY LOCATE TECHNICIAN as soon as possible. Referrals: PRIMARY CAREMD [Primary Care Provider] - EDWIN STEELE MD [Staff Physician] - RANJITH DOMÍNGUEZ MD [Staff Physician] - ADORE Forms: AMA Form
[2019-07-12 10:31] LABS: Basophils % (Auto) 0.2 % (0.0-1.8); Eosinophils # (Auto) 0.1 K/mm3 (0.0-0.4); Eosinophils % (Auto) 1.8 % (0.0-4.3); Hematocrit 33.2 % (30.3-42.9); Lymphocytes # (Auto) 2.5 K/mm3 (1.2-5.4); Lymphocytes % (Auto) 34.7 % (13.4-35.0); Mean Corpuscular HGB Conc 33 % (30-34); Mean Corpuscular Volume 80 fl (79-97); Monocytes # (Auto) 0.5 K/mm3 (0.0-0.8); Monocytes % (Auto) 7.5 % (0.0-7.3); Platelet Count 446 K/mm3 (140-440); Red Blood Count 4.17 M/mm3 (3.65-5.03); Red Cell Distribution Width 14.4 % (13.2-15.2)
[2019-07-12 10:57] LABS: Bacteria,Urine 1+ /HPF (Negative); Bilirubin,Urine NEG (Negative); Blood,Urine NEG (Negative); Color,Urine Yellow (Yellow); Mucus,Urine 3+ /HPF; Protein,Urine <15 mg/dL mg/dL (Negative)
[2019-07-12 11:03] LABS: Amphetamine Screen,Urine PRESUMPTIVE NEGATIVE; Cocaine Screen,Urine PRESUMPTIVE NEGATIVE; Methadone Screen,Urine PRESUMPTIVE NEGATIVE; Opiate Screen,Urine PRESUMPTIVE NEGATIVE
[2019-07-12 11:04] LABS: Albumin 3.4 g/dL (3.9-5); BUN/Creatinine Ratio 24; Blood Urea Nitrogen 12 mg/dL (7-17); Calcium 8.8 mg/dL (8.4-10.2); Hemolysis Index 2
[2019-07-12 11:10] LABS: Alanine Aminotransferase < 5 units/L (7-56)
[2019-07-12 11:29] LABS: Benzodiazepines Screen,Urine PRESUMPTIVE POSITIVE; Cannabinoid Screen,Urine PRESUMPTIVE POSITIVE
[2019-07-12 12:34] VITALS: BP 107/80
--- NOTE | 2019-07-12 12:52 | Cat Scan Report ---
CT BRAIN: 07/12/2019 INDICATION / CLINICAL INFORMATION: Multiple Seizures. COMPARISON: 11/04/2018 FINDINGS: BRAIN/INTRACRANIAL STRUCTURES: Unenhanced CT images of the brain were obtained and compared to the pr ior exam from 11/04/2018. There has been no change. There is no evidence of acute abnormality. Ventricles and sulci are normal in size and shape. There is no evidence of hemorrhage or mass. There are no abnormal extra-axial fluid collections. EXTRACRANIAL STRUCTURES: Unremarkable. IMPRESSION: Negative unenhanced CT of the brain. All CT scans at this location are performed using dose reduction to ALARA by means of automated expos ure control. Signer Name: Valentin River MD Signed: 07/12/2019 12:47 PM Workstation Name: [id number]
--- NOTE | 2019-07-12 12:58 | Cat Scan Report ---
CT ABDOMEN AND PELVIS WITHOUT CONTRAST HISTORY: Abdominal pain, 9 days ago COMPARISON: 11/12/2018 TECHNIQUE: Axial CT images were obtained through the abdomen and pelvis without IV contrast. Sagittal and coronal reformatted images. All CT scans at this location are performed using CT dose reduction for ALARA by means of automated exposure control. FINDINGS: CT ABDOMEN: Lung Bases: Clear. Liver: No significant abnormality. Biliary: No significant abnormality. Spleen: No significant abnormality. Unenlarged. Pancreas: No significant abnormality. Adrenals: No significant abnormality. Kidneys: No significant abnormality. Lymphatics: No lymphadenopathy. Vasculature: No significant abnormality. Bowel/Peritoneum: No significant abnormality. No free air. No free fluid. Normal appendix. CT PELVIS: : The uterus is enlarged consistent with a uterus. There is dense material within the ut erine canal with internal density measuring 57 Hounsfield units consistent with hemorrhagic products. The adnexa are unremarkable. Osseous Structures: No significant abnormality. Additional Findings: None IMPRESSION: Moderate to large hemorrhagic products are identified in the uterine canal. Signer Name: Ranjith Sam Jr, MD Signed: 07/12/2019 12:53 PM Workstation Name: [id number]
== END 2019-07-12 16:47 | disposition left against medical advice (07) ==
LOC: ED 10:00
DX: G43.909 Migraine, unspecified, not intractable, without status migrainosus (principal); G89.18 Other acute postprocedural pain; N93.9 Abnormal uterine and vaginal bleeding, unspecified; R10.9 Unspecified abdominal pain
CPT/HCPCS: 36415; 70450; 74176; 80053; 80177; 80307; 81001; 82550; 84443; 85025; 93005; 93010; 96365; 96375; 96376; 99285; J1953; J2060; J7030; 80320; G0480